=== PATIENT | male | born 1970 | race Caucasian/White ===

== ENCOUNTER 2019-01-12 06:35 | Day surgery (SDC) | payer BC ==
[2019-01-07 10:19] VITALS: BMI 40.0
[2019-01-12] MEDS ORDERED: TROPICAMIDE 1% OPHTH SOLN 15 ML BOTTLE ONE (07:02)
[2019-01-12] MEDS: CYCLOPENTOLATE 2% OPHTH SOLN 2 ML BOTTLE ONE ×3 (07:10→07:20)
[2019-01-12] MEDS: CIPROFLOXACIN 0.3% EYE DROPS 5 ML BOTTLE ONE ×3 (07:10→07:20)
[2019-01-12] MEDS: PHENYLEPHRINE 2.5% OPHTH SOLN 15 ML BOTTLE ONE ×2 (07:10→07:15)
[2019-01-12] MEDS ORDERED: LIDOCAINE 1% P/F 10 MG/ML VIAL ONE (07:12)
[2019-01-12] MEDS ORDERED: CARBACHOL 0.01% INTRA-OCULAR 1.5 ML VIAL ONE (07:13)
[2019-01-12] MEDS ORDERED: NEO/POLYMYX B SULF/DEXAMETH OPHTHALMIC 5ML BOTTLE ONE (07:13)
[2019-01-12] MEDS ORDERED: EPINEPHrine/PF 1 MG/1 ML (1:1,000) AMPULE ONE (07:14)
[2019-01-12] MEDS ORDERED: TROPICAMIDE 1% OPHTH SOLN 15 ML BOTTLE OS ONE (07:15)
[2019-01-12] MEDS ORDERED: CIPROFLOXACIN 0.3% EYE DROPS 5 ML BOTTLE OS ONE (07:20)
[2019-01-12] MEDS ORDERED: PHENYLEPHRINE 2.5% OPHTH SOLN 15 ML BOTTLE OS ONE (07:20)
[2019-01-12] MEDS ORDERED: BSS (NA/CA/MG/K) BALANCED SALT SOLUTION OPHTH SOLN 15 ML BOTTLE ONE (07:26)
[2019-01-12] MEDS ORDERED: MIDAZOLAM HCL 2 MG/2 ML SINGLE DOSE VIAL ONE ×2 (07:50→08:21)
[2019-01-12] MEDS ORDERED: SUCCINYLCHOLINE CHLORIDE 200 MG/10 ML VIAL ONE (07:51)
[2019-01-12] MEDS ORDERED: PROPOFOL 20 ML ONE (07:51)
[2019-01-12] MEDS ORDERED: TETRACAINE 0.5% OPHTH SOLN 2 ML BOTTLE ONE (08:19)
--- NOTE | 2019-01-12 09:57 | OP ---
DATE OF OPERATION: 01/12/2019 OPERATIVE PROCEDURE: Lens phacoemulsification with posterior chamber intraocular lens placement, left eye. PREOPERATIVE DIAGNOSIS: Visually significant cataract of left eye. POSTOPERATIVE DIAGNOSIS: Visually significant cataract of left eye. SURGEON: Lawrence Jensen MD ANESTHESIA: MAC. ANESTHESIOLOGIST: PROCEDURE: The patient was brought to the operating room and placed under monitored anesthesia care by Anesthesia. A drop of Tetracaine was then placed over the left eye. The patient was then prepped and draped in the usual sterile manner. A speculum was then placed over the left eye. The eye was then well irrigated with copious amounts of BSS (balanced salt solution). The operating microscope was then moved into position. A paracentesis was performed using a 15-degree blade. At this point, 0.5 mL of 1% preservative-free lidocaine was injected into the anterior chamber. Amvisc Plus was then injected into the anterior chamber. A clear corneal incision was then formed using a 2.2-mm keratome. A capsulorrhexis was then performed in a continuous circular fashion beginning with a cystotome, completed with a Utrata forceps. Hydrodissection was then performed using BSS on a cannula. The phaco probe was then introduced through the corneal wound and the cataract was removed using the phaco-chop technique. Approximately 3 seconds of absolute phaco time was used. The remaining cortex was then removed using irrigation and aspiration with an I/A probe. The capsule was then filled with regular Amvisc and the capsule was noted to be intact. A previously selected foldable posterior chamber intraocular lens was then injected into the capsule through the corneal wound using a lens injector. It was then dialed into position using a Sinskey hook. The Amvisc was then removed using irrigation and aspiration. Miostat was then injected through the paracentesis to constrict the pupil. The paracentesis and corneal wound were then hydrated and noted to be watertight. A drop of Maxitrol was then placed over the eye. The speculum was removed and clear shield was taped over the eye. The patient tolerated the procedure well and there were no surgical complications. The patient was asked to follow up in my office the next day. LAWRENCE JENSEN M.D. FABRIZIO/[id number]
[2019-01-12 12:50] VITALS: TEMP 98.6
[2019-01-12 12:53] VITALS: BP 122/76; PULSE 88
== END 2019-01-12 09:25 | disposition home or self-care (01) ==
LOC: FASU 06:35
PROVIDERS: ATTEND Ophthalmology
PROC: 08RK3JZ Replacement of Left Lens with Synthetic Substitute, Percutaneous Approach (ICD-10-PCS; principal; 2019-01-12 08:21)
DX: H26.8 Other specified cataract (principal)
CPT/HCPCS: 82962

== ENCOUNTER 2019-01-26 06:32 | Day surgery (SDC) | payer BC ==
[2019-01-24 11:33] VITALS: BMI 40.0
[2019-01-26 07:07] VITALS: TEMP 97.8
[2019-01-26] MEDS: CYCLOPENTOLATE 2% OPHTH SOLN 2 ML BOTTLE ONE ×3 (07:15→07:25)
[2019-01-26] MEDS: TROPICAMIDE 1% OPHTH SOLN 15 ML BOTTLE ONE ×3 (07:15→07:25)
[2019-01-26] MEDS: PHENYLEPHRINE 2.5% OPHTH SOLN 15 ML BOTTLE ONE ×3 (07:15→07:25)
[2019-01-26] MEDS: CIPROFLOXACIN 0.3% EYE DROPS 5 ML BOTTLE ONE ×3 (07:15→07:25)
[2019-01-26] MEDS ORDERED: LIDOCAINE 1% P/F 10 MG/ML VIAL ONE (07:16)
[2019-01-26] MEDS ORDERED: BSS (NA/CA/MG/K) BALANCED SALT SOLUTION OPHTH SOLN 15 ML BOTTLE ONE (07:16)
[2019-01-26] MEDS ORDERED: TETRACAINE 0.5% OPHTH SOLN 2 ML BOTTLE ONE (07:16)
[2019-01-26] MEDS ORDERED: NEO/POLYMYX B SULF/DEXAMETH OPHTHALMIC 5ML BOTTLE ONE (07:17)
[2019-01-26] MEDS ORDERED: CARBACHOL 0.01% INTRA-OCULAR 1.5 ML VIAL ONE (07:17)
[2019-01-26] MEDS ORDERED: EPINEPHrine 1:1,000 1 MG/1 ML - 30ML VIAL (INJECTION) ONE (07:19)
[2019-01-26] MEDS ORDERED: MIDAZOLAM HCL 2 MG/2 ML SINGLE DOSE VIAL ONE ×2 (07:38→08:18)
--- NOTE | 2019-01-26 09:01 | OP ---
DATE OF OPERATION: 01/26/2019 OPERATIVE PROCEDURE: Lens phacoemulsification with posterior chamber intraocular lens placement right eye. PREOPERATIVE DIAGNOSIS: Visually significant cataract of right eye. POSTOPERATIVE DIAGNOSIS: Visually significant cataract of right eye. SURGEON: Lawrence Jensen M.D. ANESTHESIA: MAC PROCEDURE: The patient was brought to the operating room and placed under monitored anesthesia care by Anesthesia. A drop of tetracaine was then placed over the right eye. The patient was then prepped and draped in the usual sterile manner. A speculum was then placed over the right eye. The eye was then well irrigated with copious amounts of BSS (balanced salt solution). The operating microscope was then moved into position. A paracentesis was performed using a 15 degree blade. At this point 0.5 mL of 1% preservative-free lidocaine was injected into the anterior chamber. Amvisc Plus was then injected into the anterior chamber. A clear corneal incision was then formed using a 2.2 mm keratome. A capsulorrhexis was then performed in a continuous circular fashion beginning with a cystotome and completed with Utrata forceps. Hydrodissection was then performed using BSS on a cannula. The phaco probe was then introduced through the corneal wound and the cataract was removed using the phaco chop technique. Approximately 3 seconds of absolute phaco time was used. The remaining cortex was then removed using irrigation and aspiration with an I/A probe. The capsule was then filled with regular Amvisc and the capsule was noted to be intact. A previously selected foldable posterior chamber intraocular lens was then injected into the capsule through the corneal wound using a lens injector. It was then dialed into position using a Sinskey hook. The Amvisc was then removed using irrigation and aspiration. Miostat was then injected through the paracentesis to constrict the pupil. The paracentesis and corneal wound were then hydrated and noted to be watertight. A drop of Maxitrol was then placed over the eye. The speculum was removed and clear shield was taped over the eye. The patient tolerated the procedure well and there were no surgical complications. The patient was asked to follow up in my office the next day. LAWRENCE JENSEN M.D. FABRIZIO/[id number]
[2019-01-26 09:16] VITALS: BP 122/72; PULSE 86
== END 2019-01-26 09:20 | disposition home or self-care (01) ==
LOC: FASU 06:32
PROVIDERS: ATTEND Ophthalmology
PROC: 08RJ3JZ Replacement of Right Lens with Synthetic Substitute, Percutaneous Approach (ICD-10-PCS; principal; 2019-01-26 08:00)
DX: H26.8 Other specified cataract (principal)
CPT/HCPCS: 82962

== ENCOUNTER 2019-09-05 10:40 | Inpatient (IN) | payer BC ==
--- NOTE | 2019-09-05 10:43 | PDOC ---
Attending Attestation - Resident Resident Name: Kacy Todd - ED Attending Attestation I have performed the following: I have examined & evaluated the patient, The case was reviewed & discussed with the resident, I agree w/resident's findings & plan, Exceptions are as noted - HPI HPI: 09/05/19 12:05 48yo male with hx of etoh abuse - drinks 1 bottle vodka daily. Also with hx of htn, hld, dm on metformin/losartan, norvasc with abd swelling, LE swelling x 3 months. States he has never stopped drinking or gone through detox. States his made him come to the ER today for eval. States he has been taking his meds as prescribed. Pt states he feels sob when sitting up recently. Denies cp. Pt follows with Dr. Ledezma. states he has been taking baby asa daily and has been taking motrin for the last week for back pain. States he pulled his back. Pt walked in with a walker. Pt with LE swelling and anasarca. - Physicial Exam PE: 09/05/19 12:07 Gen: aaox3, uncomfortable, anasarca, mild tachypnea heent: pale conjunctiva, no icterus, dry cracked tongue and tachy mm, dried blood L nare and dried blood to L earlobe - from CPAP rubbing neck: supple heart: +s1s2 tachy lungs: cta b/l, mild tachypnea abd: distended, ascites, fluid wave, small umbilical hernia with ascites fluid ext: 4+ pitting edema to LE b/l - Critical Care Time Total Critical Care Time: 45 Critical Care Statement: The care of this patient involved high complexity decision making to prevent further life threatening deterioration of the patient 's condition and/or to evaluate & treat vital organ system(s) failure or risk of failure. - Medical Decision Making 09/05/19 12:02 a/p: 48yo male with abd distension/LE swelling x 3 months -states melena x 2 weeks -has been taking ibuprofen and asa for the last week for back pain -no vomiting blood -bleeding L nare, does use cpap -denies bleeding from gums -hx of etoh abuse -pt will need admission, labs, coags, bnp, trop, ua -concern for liver disease causing ascites and anasarca -PMD dr. Ledezma who admits to Dr. Johnson 09/05/19 12:03 pt with renal failure - will place agudelo case discussed with Dr. Rutledge who will see pt in consult, requests push of bicarb 09/05/19 12:04 pt with hx of melena and ascites - blood cultures added, no abd ttp, but will start rocephin for SBP poss given gi bleed and ascites case discussed with Dr. Escobar from ICU who will see pt in consult and accepts pt to icu pt h/h 7 - will need transfusion pt with sodium 123 bicarb 11 09/05/19 12:05 cxr clear for pna 09/05/19 12:[address] Boateng 09/05/19 12:15 given poss gi bleed and liver failure will order protonix gtt and octreotide gtt 09/05/19 12:[address] Lipscomb 09/05/19 12:[address] Boateng who accepts pt in transfer to the ICU at [facility] pt updated 09/05/19 12:52 case discussed with GI - Dr. Kumar who will see pt in consult agrees with rocephin use 09/05/19 14:20 pt has signed blood consent agudelo in place scant amount of urine 1pRBC ordered for transfusion pt pending transfer to ICU at [facility] [place] [place] 09/05/19 14:53 case discussed with the ICU team again. pt accepted to bed 13 in ICU at [facility] 09/05/19 15:15 hepatomegaly on ultrasound, large amount of ascites Discharge - Discharge Information Problems reviewed: Yes Clinical Impression/Diagnosis: Renal failure, Anasarca, Symptomatic anemia, Hyponatremia Condition: Critical - Admission Yes - Follow up/Referral - Patient Discharge Instructions - Post Discharge Activity Heart Score/ECG Review - ECG Intrepretation Comment:: 09/05/19 11:13 sinus at 98, nl axis, nl interval, low voltage ekg, no acute st/t wave findings
--- NOTE | 2019-09-05 10:43 | PDOC ---
History of Present Illness - General Chief Complaint: Edema Stated Complaint: SWOLLEN LEGS UNABVLE TO WALK Time Seen by Provider: 09/05/19 10:43 - History of Present Illness Initial Comments: 09/05/19 10:46 48 year old man with a history of alcohol abuse (1/2 bottle of vodka daily), DM , HLD and HTN who presents with 3 months of shortness of breath, leg edema and abdominal distention and hardening. The patient reports that his sob is worse with movement. He reports that his and brother encouraged him to come to the ER today. The patient also reports that he has had black stools for 2 weeks. ROS GENERAL/CONSTITUTIONAL: No fever or chills. No weakness. CARDIOVASCULAR: No chest pain + shortness of breath RESPIRATORY: No cough, wheezing, or hemoptysis. GASTROINTESTINAL: No nausea, vomiting, diarrhea or constipation. GENITOURINARY: No dysuria, frequency, or change in urination. MUSCULOSKELETAL: No joint or muscle swelling or pain. No neck or back pain. SKIN: No rash NEUROLOGIC: No headache, vertigo, loss of consciousness, or change in strength/ sensation. PE GENERAL: Awake, alert, and fully oriented, in no acute distress HEAD: No signs of trauma, normocephalic, atraumatic EYES: EOMI, sclera anicteric, conjunctiva clear ENT: oropharynx clear without exudates. Moist mucosa NECK: Normal ROM, supple LUNGS: No distress, speaks full sentences, clear to auscultation at upper lobes , expiratory wheeze at bases HEART: Regular rate and rhythm, normal S1 and S2, + harsh systolic murmur, no rubs or gallops, peripheral pulses normal and equal bilaterally. ABDOMEN: 1+ pitting edema at lower abdomen, distended and hardened abdomen EXTREMITIES : 3+ pitting edema in bilateral lower extremities NEUROLOGICAL: Cranial nerves II through XII grossly intact. Normal speech, , no focal sensorimotor deficits SKIN: Warm, Dry, normal turgor, no rashes or lesions noted MDM DDX including but not limited to: live cirrhosis ascites anasarca chf axacernation ED Course: labs significant for h/h: 05/16 ARF hyponatremia hypolabumin See attending discussion with ICU and Renal plan for transfer to [email or web address] ICU Kacy Todd, PGY2 Emergency Medicine 09/05/19 12:02 09/05/19 12:03 Past History - Past Medical History Allergies/Adverse Reactions: Allergies Allergy/AdvReac Type Severity Reaction Status Date / Time No Known Allergies Allergy Verified 09/05/19 10:55 Home Medications: Ambulatory Orders Aspirin [ASA -] 81 mg PO DAILY 01/07/19 Dulaglutide [Trulicity] 1 dose SQ WEEKLY 09/05/19 Anemia: No Asthma: No Cancer: No Cardiac Disorders: No CVA: No COPD: No CHF: No Dementia: No Diabetes: Yes GI Disorders: No Disorders: No HTN: Yes Hypercholesterolemia: Yes Liver Disease: No Seizures: No Thyroid Disease: No - Surgical History Abdominal Surgery: No Appendectomy: No Cardiac Surgery: No Cholecystectomy: No Lung Surgery: No Neurologic Surgery: No Orthopedic Surgery: No - Psycho Social/Smoking Cessation Hx Smoking History: Never smoked Have you smoked in the past 12 months: No Hx Alcohol Use: Yes (wine occ) Drug/Substance Use Hx: No Substance Use Type: Alcohol ED Treatment Course - LABORATORY CBC & Chemistry Diagram: 09/05/19 11:06 09/05/19 11:06 Discharge - Discharge Information Clinical Impression/Diagnosis: Renal failure, Anasarca, Symptomatic anemia, Hyponatremia Condition: Critical - Follow up/Referral - Patient Discharge Instructions - Post Discharge Activity Critical Care Total Critical Care Time (in minutes): 90 Critical Care Statement: The care of this patient involved high complexity decision making to prevent further life threatening deterioration of the patient 's condition and/or to evaluate & treat vital organ system(s) failure or risk of failure.
[2019-09-05 11:42] LABS: ALBUMIN 2.5 g/dl (3.4-5.0); BILIRUBIN,TOTAL 1.4 mg/dl (0.2-1); CREATININE 3.9 mg/dl (0.55-1.3); POTASSIUM 4.9 mmol/L (3.5-5.1); TOT PROT 6.7 g/dl (6.4-8.2)
[2019-09-05] MEDS ORDERED: OCTREOTIDE ACETATE 500 MCG/1 ML - 1 ML VIAL IVPUSH ONE (11:48)
[2019-09-05] MEDS ORDERED: PANTOPRAZOLE SODIUM 40 MG VIAL IVPUSH ONE (11:48)
[2019-09-05] MEDS ORDERED: OCTREOTIDE ACETATE 50 MCG/1 ML - 1 ML VIAL IVPUSH ONE (11:50)
[2019-09-05 11:51] LABS: BASO % 0.4 % (0-2.0); EOS % 1.9 % (0-4.5); LYMPH % 5.1 % (8-40); MCHC 31.7 g/dl (32.0-35.9); MEAN CELL VOLUME 85.1 fl (80-96); MEAN PLT VOLUME 8.3 fl (7.5-11.1); NEUT % 81.6 % (42.8-82.8); PLATELET COUNT 223 K/MM3 (134-434); RBC 2.59 M/mm3 (4.00-5.60); RDW 19.3 % (11.9-15.9); WHITE BLOOD COUNT 10.9 K/mm3 (4.0-10.8)
[2019-09-05 11:52] LABS: ADD RBC MORPHOLOGY YES
[2019-09-05 11:57] LABS: INR 1.33 (0.82-1.09); PROTHROMBIN TIME (PATIENT) 14.8 SEC (10.2-13.0)
[2019-09-05] MEDS ORDERED: SODIUM BICARBONATE 8.4% 50 MEQ/50 ML DISP.SYRIN IVPUSH ONE ×2 (12:01→18:59)
[2019-09-05] MEDS ORDERED: PANTOPRAZOLE SODIUM 40 MG VIAL ONE (12:11)
[2019-09-05] MEDS ORDERED: cefTRIAXone SODIUM 1 GM VIAL ONE (12:11)
[2019-09-05] MEDS ORDERED: SODIUM BICARBONATE 8.4% 50 MEQ/50 ML VIAL ONE ×2 (12:11→16:57)
[2019-09-05] MEDS: SODIUM CHLORIDE 1,000 ML IV SCH (12:15)
[2019-09-05] MEDS ORDERED: SODIUM CHLORIDE IVPB ONE (12:45)
[2019-09-05] MEDS ORDERED: OCTREOTIDE ACETATE IVPB ONE (12:45)
[2019-09-05] MEDS: PANTOPRAZOLE SODIUM 80 MG in SODIUM CHLORIDE 100 ML IVPB SCH ×2 (12:50→22:12)
[2019-09-05 13:06] LABS: ANISOCYTOSIS 1+; TARGET CELLS 1+
[2019-09-05 13:14] LABS: VENOUS PC02 24.3 mmHg (38-52); VENOUS PH 7.32 (7.31-7.41); VENOUS PO2 52.4 mmHg (28-48)
[2019-09-05] MEDS ORDERED: OCTREOTIDE ACETATE 100 MCG/1 ML IVPUSH ONE (13:15)
[2019-09-05 14:22] LABS: EPITHELIAL CELLS FEW /hpf
[2019-09-05 14:23] LABS: URINE HYALINE CAST 0-2 /lpf
--- NOTE | 2019-09-05 15:45 | HP ---
Admitting History and Physical - Primary Care Physician PCP: Gregory Torres - Admission Chief Complaint: came in for leg swelling History of Present Illness: 48yo male with hx of etoh abuse - drinks 1 bottle vodka daily. Also with hx of htn, hld, dm on metformin/losartan, norvasc with abd swelling, LE swelling x 3 months. States he has never stopped drinking or gone through detox. States his made him come to the ER today for eval. States he has been taking his meds as prescribed. Pt states he feels sob when sitting up recently. Denies cp. Pt follows with Dr. Torres. states he has been taking baby asa daily and has been taking motrin for the last week for back pain. States he pulled his back. Pt walked in with a walker. Pt with LE swelling and anasarca. .patient has complaints of melena in the last two weeks as well at home patient has been lying on his side as he having difficulty breathing in er labs wbc 10, hgb 7, bicarbonate 11, creatinine 3.9 protonix iv octreotide drip 2 amp of bicarbonate History Source: Patient - Past Medical History Cardiovascular: Yes: HTN, Hyperlipdemia Endocrine: Yes: Diabetes Mellitus - Smoking History Smoking history: Never smoked Have you smoked in the past 12 months: No - Alcohol/Substance Use Hx Alcohol Use: Yes (wine occ) Number of Drinks Daily: 1 (1/2bottle vodka daily) Home Medications - Allergies Allergies/Adverse Reactions: Allergies Allergy/AdvReac Type Severity Reaction Status Date / Time No Known Allergies Allergy Verified 09/05/19 10:55 - Home Medications Home Medications: Ambulatory Orders Aspirin [ASA -] 81 mg PO DAILY 01/07/19 Dulaglutide [Trulicity] 1 dose SQ WEEKLY 09/05/19 Review of Systems - Review of Systems Respiratory: reports: Orthopnea, SOB Gastrointestinal: reports: Abdominal Pain, Bloating Musculoskeletal: reports: Other (leg swelling) Physical Examination Vital Signs: Vital Signs Temperature 98 F 09/05/19 14:52 Pulse Rate 97 H 09/05/19 14:52 Respiratory Rate 20 09/05/19 14:52 Blood Pressure 101/50 L 09/05/19 14:52 O2 Sat by Pulse Oximetry (%) 100 09/05/19 14:52 Constitutional: Yes: Mild Distress, Pallor HENT: Yes: Other (dried blood in the ears) Cardiovascular: Yes: Regular Rate and Rhythm, S1, S2 Respiratory: Yes: Diminished, SOB Gastrointestinal: Yes: Ascites, Distention, Hernia (umbilcial), Other (caput meduse fluid wave) Edema: Yes Neurological: Yes: Alert, Other (decrased sensation in feet) Psychiatric: Yes: Alert, Oriented Labs: CBC, BMP 09/05/19 11:06 09/05/19 11:06 Problem List - Problems (1) Anasarca Assessment/Plan: secondary to cirrhosis and renal failure abdominal sono shows large volume ascites and hepatomegaly and fatty liver venous lower extremity doppler shows no dvt check coags paracentesis with albumin now monitor respiratory status secondary to genaralized volume overload Code(s): R60.1 - GENERALIZED EDEMA (2) Hyponatremia Assessment/Plan: repeat labs maybe secondary to hepatorenal syndrome Code(s): E87.1 - HYPO-OSMOLALITY AND HYPONATREMIA (3) Renal failure Assessment/Plan: repeat cmp now after the bicarb amps check ABG agudelo and monitor urine output lasix 80mg iv now monitor in icu- respiratory status may need HD check lactic acid as patient was on metformin kidney noted on the abdominal sonogram Code(s): N19 - UNSPECIFIED KIDNEY FAILURE (4) Symptomatic anemia Assessment/Plan: prbc one unit 1 will defer later after the paracentesis gi eval noted protonix and octreotide drip serial cbc iron panel Code(s): D64.9 - ANEMIA, UNSPECIFIED (5) Coagulopathy Assessment/Plan: ffp and vitmain K as needed monitor coags Code(s): D68.9 - COAGULATION DEFECT, UNSPECIFIED Assessment/Plan icu monitoring paracentesis with albumin to help with respiratory distress ABG lactic acid repeat cbc ,cmp,coags
[2019-09-05] MEDS ORDERED: FUROSEMIDE 40 MG/4 ML INJECTABLE VIAL IVPUSH ONE ×2 (16:32→22:12)
--- NOTE | 2019-09-05 16:47 | CON.GI ---
Consult Consult Specialty:: GI Referred by:: ICU Reason for Consultation:: ascites, GI bleed - History of Present Illness Chief Complaint: SOB, swelling History of Present Illness: 48M with h/o DM, HTN, HL, significant ETOH 1 bottle vodka daily (last yesterday ) presenting for abdominal and leg swelling for few months. Also noted to be having black stool for the last 2 weeks [employer]. Using motrin daily for back pain as well for last week. +SOB when upright. Went to ED at [facility] for eval. Patient says his last bm was 3 days ago, prior to that was having loose jet black bm a few times a day. No abdominal pain just tight. Scant hematochezia as well, intermittent. no hematemesis. Noted to be anasarcic with tense ascites on exam. Although not documented, per discussion w ED MD, no almost no stool in vault on RAHAT and guaiac to lab was negative. US with large ascites, small gallstones w mild wlal thickening ? related to ascites, limited eval of PV Labs with significant derangements: hgb 7 Na 123 HCO3 11 BUN 65 Cr 3.9 Albumin 2.5 TB 1.4 AST 43 ALT 19 Was started on PPI and octreotide gtt, ceftriaxone given, transferred to [facility] for further evaluation. - History Source History Provided By: Patient Limitations to Obtaining History: No Limitations - Past Medical History Cardio/Vascular: Yes: HTN, Hyperlipdemia Endocrine: Yes: Diabetes Mellitus - Alcohol/Substance Use Hx Alcohol Use: Yes (wine occ) Number of Drinks Daily: 1 (1/2bottle vodka daily) - Smoking History Smoking history: Never smoked Have you smoked in the past 12 months: No Home Medications - Allergies Allergies/Adverse Reactions: Allergies Allergy/AdvReac Type Severity Reaction Status Date / Time No Known Allergies Allergy Verified 09/05/19 10:55 - Home Medications Home Medications: Ambulatory Orders Aspirin [ASA -] 81 mg PO DAILY 01/07/19 Dulaglutide [Trulicity] 1 dose SQ WEEKLY 09/05/19 Family Medical History Family History: Unremarkable Review of Systems - Review of Systems Constitutional: reports: No Symptoms Eyes: reports: No Symptoms Cardiovascular: reports: No Symptoms Respiratory: reports: SOB Gastrointestinal: reports: Bloating, Melena, Rectal Bleeding Genitourinary: reports: No Symptoms Musculoskeletal: reports: No Symptoms Neurological: reports: No Symptoms Endocrine: reports: No Symptoms Hematology/Lymphatic: reports: No Symptoms Psychiatric: reports: No Symptoms Physical Exam-GI Vital Signs: Vital Signs Temperature 98 F 09/05/19 14:52 Pulse Rate 97 H 09/05/19 14:52 Respiratory Rate 20 09/05/19 14:52 Blood Pressure 101/50 L 09/05/19 14:52 O2 Sat by Pulse Oximetry (%) 100 09/05/19 14:52 Constitutional: Yes: Well Nourished, No Distress, Other (tachypneic) Eyes: Yes: Conjunctiva Clear Cardiovascular: Yes: Regular Rate and Rhythm Respiratory: Yes: CTA Bilaterally Gastrointestinal Inspection: Yes: Ascites ...Palpate: Yes: Other (spider angiomata; tense ascites) ...Percussion: Yes: Dullness, Fluid Wave Edema: Yes Edema: LLE: 4+, RLE: 4+ Neurological: Yes: Alert, Oriented, Tremors Psychiatric: Yes: Alert, Oriented Labs: CBC, BMP 09/05/19 11:06 09/05/19 11:06 INR, PTT INR 1.33 (0.82-1.09) H 09/05/19 11:06 Hepatic Panel Total Bilirubin 1.4 mg/dl (0.2-1) H 09/05/19 11:06 AST 43 U/L (15-37) H 09/05/19 11:06 ALT 19 U/L (13-61) 09/05/19 11:06 Alkaline Phosphatase 167 U/L (45-117) H 09/05/19 11:06 Albumin 2.5 g/dl (3.4-5.0) L 09/05/19 11:06 Imaging - Results Ultrasound: Report Reviewed Assessment/Plan 48M with significant ETOH disease presenting for anasarca. GI bleeding - hx of melena for two weeks, +NSAIDs but guaiac negative. No bm x3d. Doesn't seem to be actively bleeding. Unclear if cirrhotic. Continue PPI/octreotide drips Continue ceftriaxone for now Recheck H/H, transfuse for hgb <7 Patient with significant volume overload at this time causing tachypnea. Needs diagnostic/therapeutic paracentesis for comfort - please send cell count and cx to rule out SBP. Should have albumin replacement with tap. Check urine electrolytes Would see about repeating US after tap to assess for splenomegaly, other signs of portal HTN Monitor for withdrawal - patient is tremulous, last drink yesterday Will follow
--- NOTE | 2019-09-05 16:48 | CONSULT ---
Consult Consult Specialty:: Nephrology Reason for Consultation:: justine - History of Present Illness Chief Complaint: abdominal distention and shortness of breath History of Present Illness: Pt is a 48 year old gentleman who presents to the ER with abdominal distension and shortness of breath. He has history of etoh abuse, DM, hld and HTN. He says that he has been drinking for many years. He also complains of worsening lower ext edema. He has had the symptoms for the last 4 months and they have progressively been getting worse. He did have black stools. He complains of discomfort from the distention. He denies chest pain or palpitations. He denies history of CKD. He has been taking nsaids. He is not aware of having liver disease. - History Source History Provided By: Patient, Medical Record - Past Medical History Cardio/Vascular: Yes: HTN, Hyperlipdemia Endocrine: Yes: Diabetes Mellitus - Alcohol/Substance Use Hx Alcohol Use: Yes (wine occ) Number of Drinks Daily: 1 (1/2bottle vodka daily) - Smoking History Smoking history: Never smoked Have you smoked in the past 12 months: No Home Medications - Allergies Allergies/Adverse Reactions: Allergies Allergy/AdvReac Type Severity Reaction Status Date / Time No Known Allergies Allergy Verified 09/05/19 10:55 - Home Medications Home Medications: Ambulatory Orders Aspirin [ASA -] 81 mg PO DAILY 01/07/19 Dulaglutide [Trulicity] 1 dose SQ WEEKLY 09/05/19 Family Medical History Family History: Denies Review of Systems - Review of Systems Constitutional: reports: Malaise. denies: Chills Eyes: reports: No Symptoms HENT: reports: No Symptoms Neck: reports: No Symptoms Cardiovascular: reports: Edema, Shortness of Breath Respiratory: reports: SOB, SOB on Exertion Gastrointestinal: reports: Other (distension) Genitourinary: reports: No Symptoms Musculoskeletal: reports: No Symptoms Integumentary: reports: No Symptoms Neurological: reports: No Symptoms Endocrine: reports: No Symptoms Hematology/Lymphatic: reports: No Symptoms Psychiatric: reports: No Symptoms Physical Exam Vital Signs: Vital Signs Temperature 98 F 09/05/19 14:52 Pulse Rate 97 H 09/05/19 14:52 Respiratory Rate 20 09/05/19 14:52 Blood Pressure 101/50 L 09/05/19 14:52 O2 Sat by Pulse Oximetry (%) 100 09/05/19 14:52 Constitutional: Yes: Mild Distress Eyes: Yes: Conjunctiva Clear Cardiovascular: Yes: S1, S2 Respiratory: Yes: On Nasal O2 Gastrointestinal: Yes: Ascites, Distention Renal/: Yes: Cortes Present Musculoskeletal: Yes: WNL Edema: Yes Edema: LLE: 3+, RLE: 3+ Neurological: Yes: Oriented Psychiatric: Yes: Oriented Labs: CBC, BMP 09/05/19 11:06 09/05/19 11:06 Laboratory Tests 09/05/19 09/05/19 09/05/19 11:06 11:06 11:06 Hgb 7.0 L Sodium 123 L Potassium 4.9 Chloride 94 L Carbon Dioxide 11 L Anion Gap 18 H BUN 65.0 H Creatinine 3.9 H B-Natriuretic Peptide 707.7 H Urine Protein Urine Blood 09/05/19 13:25 Hgb Sodium Potassium Chloride Carbon Dioxide Anion Gap BUN Creatinine B-Natriuretic Peptide Urine Protein 2+ H Urine Blood Trace-intact Imaging - Results Chest X-ray: Report Reviewed Ultrasound: Report Reviewed Problem List - Problems (1) Ascites Code(s): R18.8 - OTHER ASCITES (2) Anasarca Code(s): R60.1 - GENERALIZED EDEMA (3) Coagulopathy Code(s): D68.9 - COAGULATION DEFECT, UNSPECIFIED (4) Hyponatremia Code(s): E87.1 - HYPO-OSMOLALITY AND HYPONATREMIA (5) Renal failure Code(s): N19 - UNSPECIFIED KIDNEY FAILURE (6) Symptomatic anemia Code(s): D64.9 - ANEMIA, UNSPECIFIED Assessment/Plan Current Medications Generic Name Dose Route Start Last Admin Trade Name Zana PRN Reason Stop Dose Admin Chlorhexidine Gluconate 1 applic 09/05/19 22:00 Hibiclens For Decolonization - TP HS YUE Sodium Chloride 1,000 mls @ 0 mls/hr 09/05/19 12:00 09/05/19 12:15 Normal Saline - IV 1,000 mls/hr ASDIR YUE Administration Wide Open Pantoprazole Sodium 80 mg/ 100 mls @ 10 mls/hr 09/05/19 12:15 09/05/19 12:50 Sodium Chloride IVPB 10 mls/hr Q10H YUE Administration 8 MG/HR Mupirocin 1 applic 09/05/19 22:00 Bactroban Ointment (For Decolonization) - NS 09/10/19 21:59 BID YUE Impression 1. JUSTINE 2. hyponatremia hypervolemic 3. etoh abuse 4. fluid overload 5. metabolic overload 6. DM 7. htn 8. hld 9. anemia Plan - will give lasix - GI eval for paracentesis - agree with amp of bicarb - repeat labs - check abg - check lactic acid - check urine sodium and box stamper - ICU monitoring - follow up repeat labs stat - pt getting paracentesis, discussed with ICU - hyponatremia workup ordered
[2019-09-05] MEDS ORDERED: SODIUM BICARBONATE 8.4% 50 MEQ/50 ML VIAL IVPUSH ONE ×3 (16:55→21:35)
[2019-09-05 17:10] LABS: ARTERIAL BLD GAS O2 SATURATION 97.7 % (95-98); ARTERIAL BLOOD GAS BASE EXCESS -14.7 meq/l (-2-2); ARTERIAL BLOOD GAS PCO2 20.1 mmHg (35-45); ARTERIAL BLOOD GAS PO2 107 mmHg (80-100); ARTERIAL BLOOD GAS pH 7.32 (7.35-7.45)
[2019-09-05 17:13] LABS: ALLENS TEST POSITIVE
[2019-09-05 17:41] LABS: BASO % 0.3 % (0-2.0); EOS % 0.2 % (0-4.5); HEMATOCRIT 20.4 % (35.4-49); LYMPH % 2.9 % (8-40); MCH 26.5 pg (25.7-33.7); MCHC 31.9 g/dl (32.0-35.9); MEAN CELL VOLUME 83.1 fl (80-96); MEAN PLT VOLUME 7.8 fl (7.5-11.1); MONO % 8.8 % (3.8-10.2); NEUT % 87.8 % (42.8-82.8); PLATELET COUNT 179 K/MM3 (134-434); RBC 2.45 M/mm3 (4.00-5.60); WHITE BLOOD COUNT 9.6 K/mm3 (4.0-10.0)
[2019-09-05 17:50] LABS: HEMOGLOBIN 6.5 GM/dL (11.7-16.9)
--- NOTE | 2019-09-05 17:52 | PN ---
Physical Exam: SUBJECTIVE: Patient seen and examined by the bedside, A)x3, tachypnic but otherwise doing well. OBJECTIVE: Vital Signs Period Temp Pulse Resp BP Sys/Foy Pulse Ox Last 24 Hr 97.9 F-98 F 97-103 20-28 101-109/50-74 100-100 GENERAL: AOx3, tachypnic HEAD: Normal with no signs of trauma. EYES: PERRL, extraocular movements intact, sclera anicteric, conjunctiva clear. No ptosis. ENT: Dried blood in ears, no drainage, nares patent and moist NECK: Trachea midline LUNGS: Decreased breath sounds B/L HEART: RRR, no murmurs ABDOMEN: Soft, nontender, distended, umbilical hernia presentno hepatosplenomegaly EXTREMITIES: 2+ pitting edema NEUROLOGICAL: Motor 5/5, sensations intact PSYCH: Normal mood, normal affect. SKIN: Warm, dry, normal turgor, no rashes Laboratory Results - last 24 hr 09/05/19 09/05/19 09/05/19 11:06 11:06 11:06 WBC 10.9 H RBC 2.59 L Hgb 7.0 L Hct 22.0 L D MCV 85.1 MCH 27.0 D MCHC 31.7 L RDW 19.3 H D Plt Count 223 MPV 8.3 D Absolute Neuts (auto) 8.9 Neutrophils % 81.6 D Lymphocytes % 5.1 L D Monocytes % 11.0 H Eosinophils % 1.9 Basophils % 0.4 Hypochromia 1+ Anisocytosis 1+ Target Cells 1+ PT with INR INR PTT (Actin FS) 29.3 Anticoagulation Therapy Puncture Site ABG pH ABG pCO2 at Pt Temp ABG pO2 at Pt Temp ABG HCO3 ABG O2 Sat (Measured) ABG O2 Content ABG Base Excess Puma Test VBG pH POC VBG pCO2 POC VBG pO2 VBG HCO3 VBG O2 Sat (Anthony) VBG Base Excess O2 Delivery Device Oxygen Flow Rate Vent Mode Vent Rate Mechanical Rate Pressure Support Vent Sodium 123 L Potassium 4.9 Chloride 94 L Carbon Dioxide 11 L Anion Gap 18 H BUN 65.0 H Creatinine 3.9 H Est GFR (CKD-EPI)AfAm 19.67 Est GFR (CKD-EPI)NonAf 16.98 Random Glucose 110 H Calcium 8.0 L Total Bilirubin 1.4 H AST 43 H ALT 19 Alkaline Phosphatase 167 H Creatine Kinase Troponin I B-Natriuretic Peptide Total Protein 6.7 Albumin 2.5 L Urine Color Urine Appearance Urine pH Urine Protein Urine Glucose (UA) Urine Ketones Urine Blood Urine Nitrite Urine Bilirubin Urine Urobilinogen Ur Leukocyte Esterase Urine RBC Urine WBC Ur Transition Epith Cell Urine Bacteria Hyaline Casts Stool Occult Blood Blood Type Antibody Screen Crossmatch 09/05/19 09/05/19 09/05/19 11:06 11:06 11:06 WBC RBC Hgb Hct MCV MCH MCHC RDW Plt Count MPV Absolute Neuts (auto) Neutrophils % Lymphocytes % Monocytes % Eosinophils % Basophils % Hypochromia Anisocytosis Target Cells PT with INR 14.8 H INR 1.33 H PTT (Actin FS) Anticoagulation Therapy Puncture Site ABG pH ABG pCO2 at Pt Temp ABG pO2 at Pt Temp ABG HCO3 ABG O2 Sat (Measured) ABG O2 Content ABG Base Excess Puma Test VBG pH POC VBG pCO2 POC VBG pO2 VBG HCO3 VBG O2 Sat (Anthony) VBG Base Excess O2 Delivery Device Oxygen Flow Rate Vent Mode Vent Rate Mechanical Rate Pressure Support Vent Sodium Potassium Chloride Carbon Dioxide Anion Gap BUN Creatinine Est GFR (CKD-EPI)AfAm Est GFR (CKD-EPI)NonAf Random Glucose Calcium Total Bilirubin AST ALT Alkaline Phosphatase Creatine Kinase Troponin I 0.04 B-Natriuretic Peptide 707.7 H Total Protein Albumin Urine Color Urine Appearance Urine pH Urine Protein Urine Glucose (UA) Urine Ketones Urine Blood Urine Nitrite Urine Bilirubin Urine Urobilinogen Ur Leukocyte Esterase Urine RBC Urine WBC Ur Transition Epith Cell Urine Bacteria Hyaline Casts Stool Occult Blood Blood Type Antibody Screen Crossmatch 09/05/19 09/05/19 09/05/19 11:06 12:05 12:06 WBC RBC Hgb Hct MCV MCH MCHC RDW Plt Count MPV Absolute Neuts (auto) Neutrophils % Lymphocytes % Monocytes % Eosinophils % Basophils % Hypochromia Anisocytosis Target Cells PT with INR INR PTT (Actin FS) Anticoagulation Therapy Puncture Site ABG pH ABG pCO2 at Pt Temp ABG pO2 at Pt Temp ABG HCO3 ABG O2 Sat (Measured) ABG O2 Content ABG Base Excess Puma Test VBG pH POC VBG pCO2 POC VBG pO2 VBG HCO3 VBG O2 Sat (Anthony) VBG Base Excess O2 Delivery Device Oxygen Flow Rate Vent Mode Vent Rate Mechanical Rate Pressure Support Vent Sodium Potassium Chloride Carbon Dioxide Anion Gap BUN Creatinine Est GFR (CKD-EPI)AfAm Est GFR (CKD-EPI)NonAf Random Glucose Calcium Total Bilirubin AST ALT Alkaline Phosphatase Creatine Kinase 124 Troponin I B-Natriuretic Peptide Total Protein Albumin Urine Color Urine Appearance Urine pH Urine Protein Urine Glucose (UA) Urine Ketones Urine Blood Urine Nitrite Urine Bilirubin Urine Urobilinogen Ur Leukocyte Esterase Urine RBC Urine WBC Ur Transition Epith Cell Urine Bacteria Hyaline Casts Stool Occult Blood Negative Blood Type A POSITIVE Antibody Screen Negative Crossmatch See Detail 09/05/19 09/05/19 09/05/19 12:25 12:25 13:25 WBC RBC Hgb Hct MCV MCH MCHC RDW Plt Count MPV Absolute Neuts (auto) Neutrophils % Lymphocytes % Monocytes % Eosinophils % Basophils % Hypochromia Anisocytosis Target Cells PT with INR INR PTT (Actin FS) Anticoagulation Therapy Puncture Site ABG pH ABG pCO2 at Pt Temp ABG pO2 at Pt Temp ABG HCO3 ABG O2 Sat (Measured) ABG O2 Content ABG Base Excess Puma Test VBG pH 7.32 POC VBG pCO2 24.3 L POC VBG pO2 52.4 H VBG HCO3 12.2 L VBG O2 Sat (Anthony) 78.6 VBG Base Excess -12.8 L O2 Delivery Device Oxygen Flow Rate Vent Mode Vent Rate Mechanical Rate Pressure Support Vent Sodium Potassium Chloride Carbon Dioxide Anion Gap BUN Creatinine Est GFR (CKD-EPI)AfAm Est GFR (CKD-EPI)NonAf Random Glucose Calcium Total Bilirubin AST ALT Alkaline Phosphatase Creatine Kinase Troponin I B-Natriuretic Peptide Total Protein Albumin Urine Color Yellow Urine Appearance Slightly Urine pH 5.0 Urine Protein 2+ H Urine Glucose (UA) Negative Urine Ketones 1+ H Urine Blood Trace-intact Urine Nitrite Negative Urine Bilirubin 2+ H Urine Urobilinogen 1.0 Ur Leukocyte Esterase Negative Urine RBC 2-5 Urine WBC 0-2 Ur Transition Epith Cell Few Urine Bacteria Few Hyaline Casts 0-2 Stool Occult Blood Blood Type A POSITIVE Antibody Screen Crossmatch 09/05/19 16:43 WBC RBC Hgb Hct MCV MCH MCHC RDW Plt Count MPV Absolute Neuts (auto) Neutrophils % Lymphocytes % Monocytes % Eosinophils % Basophils % Hypochromia Anisocytosis Target Cells PT with INR INR PTT (Actin FS) Anticoagulation Therapy No Result Required. Puncture Site Right radial ABG pH 7.32 L ABG pCO2 at Pt Temp 20.1 L ABG pO2 at Pt Temp 107 H ABG HCO3 10.2 L ABG O2 Sat (Measured) 97.7 ABG O2 Content 7.6 ABG Base Excess -14.7 L Pmua Test Positive VBG pH POC VBG pCO2 POC VBG pO2 VBG HCO3 VBG O2 Sat (Anthony) VBG Base Excess O2 Delivery Device No Result Required. Oxygen Flow Rate Room air Vent Mode No Result Required. Vent Rate No Result Required. Mechanical Rate No Result Required. Pressure Support Vent No Result Required. Sodium Potassium Chloride Carbon Dioxide Anion Gap BUN Creatinine Est GFR (CKD-EPI)AfAm Est GFR (CKD-EPI)NonAf Random Glucose Calcium Total Bilirubin AST ALT Alkaline Phosphatase Creatine Kinase Troponin I B-Natriuretic Peptide Total Protein Albumin Urine Color Urine Appearance Urine pH Urine Protein Urine Glucose (UA) Urine Ketones Urine Blood Urine Nitrite Urine Bilirubin Urine Urobilinogen Ur Leukocyte Esterase Urine RBC Urine WBC Ur Transition Epith Cell Urine Bacteria Hyaline Casts Stool Occult Blood Blood Type Antibody Screen Crossmatch Active Medications Generic Name Dose Route Start Last Admin Trade Name Freq PRN Reason Stop Dose Admin Chlorhexidine Gluconate 1 applic 09/05/19 22:00 Hibiclens For Decolonization - TP HS YUE Sodium Chloride 1,000 mls @ 0 mls/hr 09/05/19 12:00 09/05/19 12:15 Normal Saline - IV 1,000 mls/hr ASDIR YUE Administration Wide Open Pantoprazole Sodium 80 mg/ 100 mls @ 10 mls/hr 09/05/19 12:15 09/05/19 12:50 Sodium Chloride IVPB 10 mls/hr Q10H YUE Administration 8 MG/HR Mupirocin 1 applic 09/05/19 22:00 Bactroban Ointment (For Decolonization) - NS 09/10/19 21:59 BID YUE ASSESSMENT/PLAN: 48 YO M with PMH of EtOH (1 bottle vodka daily), HTN, HLD, DM, presented to the ER with complaints of abdominal distension, LE edema for the past 3 months, as well as melena over the past 2 weeks. #GI - Anasarca 2/2 cirrhosis/renal failure - Therapeutic paracentesis performed, 9.5L drained, Albumin 50mg administered, cx ordered - Abdominal USG pre-paracentesis: shows large volume ascites and hepatomegaly and fatty liver - GI consult: repeat abdominal USG after tap to assess for splenomegaly - Pantoprazole 80mg in N/S @ 8mg/HR #Heme - LE Doppler: No evidence of dvt - PT 14.8, INR 1.33, PTT 29.3, FFP, Vit K as needed - H&H: Hgb 7.0 -> 6.5, PRBC after paracentesis - Fe panel ordered #Renal - UA: 2+ protein, 1+ ketones, 2+ bili - Renal failure - Received Bicarb #Respiratory - ABG pH 7.32, pCO2 20.1, HCO3 10.2, - Lasix 80mg iv now #Renal - Cortes placed, monitor I/O - Possible HD #FEN - Hyponatremia likely 2/2 hepatorenal syndrome - N/S 1L @ wide open #ID - WBC 10.9 -> 9.6 - Lactic Acid 3.3 #Dispo - Monitor respiratoy status in ICU ATTENDING PHYSICIAN STATEMENT I saw and evaluated the patient. I reviewed the resident's note and discussed the case with the resident. I agree with the resident's findings and plan as documented. SUBJECTIVE: OBJECTIVE: ASSESSMENT AND PLAN:
--- NOTE | 2019-09-05 18:09 | PN ---
Teaching Attending Note Name of Resident: Prateek Padilla ATTENDING PHYSICIAN STATEMENT I saw and evaluated the patient. I reviewed the resident's note and discussed the case with the resident. I agree with the resident's findings and plan as documented. SUBJECTIVE: Pt seen and examined in the ICU. Abdomen distended with shortness of breath. Agreeable to paracentesis. OBJECTIVE: Vital Signs Period Temp Pulse Resp BP Sys/Foy Pulse Ox Last 24 Hr 97.9 F-98 F 97-103 20-28 101-124/50-74 100-100 Intake & Output 09/02/19 09/03/19 09/04/19 09/05/19 23:59 23:59 23:59 23:59 Output Total 40 Balance -40 Weight 136.894 kg Gen: tachypneic at rest Heart: RRR Lung: decreased breath sounds at the bases Abd: distended, nontender Ext: + edema CBC, BMP 09/05/19 17:30 Active Medications Albumin Human (Albumin Human 25%) 25 gm IVPB Q30M YUE Stop: 09/05/19 19:20 Chlorhexidine Gluconate (Hibiclens For Decolonization -) 1 applic TP HS YUE Sodium Chloride (Normal Saline -) 1,000 mls @ 0 mls/hr IV ASDIR YUE Last Admin: 09/05/19 12:15 Dose: 1,000 mls/hr Pantoprazole Sodium 80 mg/ (Sodium Chloride) 100 mls @ 10 mls/hr IVPB Q10H YUE Last Admin: 09/05/19 12:50 Dose: 10 mls/hr Mupirocin (Bactroban Ointment (For Decolonization) -) 1 applic NS BID YUE Stop: 09/10/19 21:59 ASSESSMENT AND PLAN: Massive Ascites Impending Acute Respiratory Failure Acute Kidney Injury Lactic/Metabolic Acidosis Anemia Alcohol Abuse r/o Liver Cirrhosis Hyponatremia HTN DM Hyperlipidemia Morbid Obesity - will perform diagnostic/therapeutic paracentesis with albumin replacement - send fluid for cell count, total protein, albumin, cultures and cytology - transfuse PRBC - monitor H/H - protonix - GI eval - O2 to keep SpO2 >90% - echocardiogram - lasix - monitor lytes - monitor urine output, creatinine - DVT prophylaxis - continue ICU monitoring
[2019-09-05 18:11] LABS: ALBUMIN 2.3 g/dl (3.4-5.0); BILIRUBIN,TOTAL 1.3 mg/dL (0.2-1); BLOOD UREA NITROGEN 66.4 mg/dL (7-18); CALCIUM 7.8 mg/dL (8.5-10.1); CREATININE 3.9 mg/dL (0.55-1.3); POTASSIUM 5.2 mmol/L (3.5-5.1); TOT PROT 6.3 g/dl (6.4-8.2)
[2019-09-05] MEDS: ALBUMIN HUMAN 25% 12.5 GM/50 ML VIAL IVPB SCH ×2 (18:12→18:53)
[2019-09-05 19:18] LABS: MAGNESIUM 1.8 mg/dL (1.8-2.4)
--- NOTE | 2019-09-05 19:46 | PROC ---
Procedure Note Procedure: Large volume paracentesis performed. Consent was obtained and all questions were answered.. Pt dressed sterily. Procedure performed in sterile manner. 9.7L of peritoneal fluid obtained. Samples sent for analysis. Pt states that his breathing has improved. Vitals were normal throughout procedure. Pt tolerated procedure well. Xeroform and sterile gauze placed over puncture site.
[2019-09-05 21:48] LABS: PERITONEAL FLUID LYMPHOCYTE 43 %; PERITONEAL FLUID MACROPHAGE 4 %; PERITONEAL FLUID MESOTHELIAL 13 %; PERITONEAL FLUID MONOCYTE 7 %; PERITONEAL FLUID NEUTROPHIL 33 %; PERITONEAL RBC 574 /mm3
[2019-09-05] MEDS: MUPIROCIN 2% TOPICAL OINTMENT FOR DECOLONIZATION NS SCH (22:12)
[2019-09-05] MEDS: CHLORHEXIDINE GLUCONATE 4% CLEANSER FOR DECOLONIZATION TP SCH (22:13)
--- NOTE | 2019-09-05 22:15 | PN ---
Progress Note (short form) - Note Progress Note: Case d/w nephro, Dr. Rutledge, who recommends giving bicarb and monitoring HCO3 on BMP. In addition, he recommends 80mg IV lasix given w/ albumin (which was given during paracentesis) while closely monitoring BP. Bicarb ordered. Lasix ordered. Albumin already given. Repeat BMP @2300.
[2019-09-06 00:16] LABS: CALCIUM 7.7 mg/dL (8.5-10.1); CREATININE 3.5 mg/dL (0.55-1.3)
--- NOTE | 2019-09-06 00:34 | PN ---
Progress Note (short form) - Note Progress Note: Laboratory Tests 09/05/19 23:40 Sodium 127 L Potassium 5.0 Chloride 96 L Carbon Dioxide 14 L BUN 64.0 H Creatinine 3.5 H Labs reviewed - sodium and potassium improving - bicarb improving - renal function starting to improve - monitor urine output - cont bicarb - repeat labs in am Problem List - Problems (1) Ascites Code(s): R18.8 - OTHER ASCITES (2) Anasarca Code(s): R60.1 - GENERALIZED EDEMA (3) Coagulopathy Code(s): D68.9 - COAGULATION DEFECT, UNSPECIFIED (4) Hyponatremia Code(s): E87.1 - HYPO-OSMOLALITY AND HYPONATREMIA (5) Renal failure Code(s): N19 - UNSPECIFIED KIDNEY FAILURE (6) Symptomatic anemia Code(s): D64.9 - ANEMIA, UNSPECIFIED
[2019-09-06] MEDS ORDERED: SODIUM BICARBONATE 8.4% 50 MEQ/50 ML DISP.SYRIN IVPUSH ONE (00:35)
[2019-09-06] MEDS ORDERED: LACTATED RINGERS SOLUTION 1000 ML INFUS.BAG IV PRN (00:49)
[2019-09-06] MEDS ORDERED: SODIUM BICARBONATE 8.4% 50 MEQ/50 ML VIAL ONE (00:59)
[2019-09-06 06:59] LABS: HEMATOCRIT 20.2 % (35.4-49); MCH 26.7 pg (25.7-33.7); MEAN PLT VOLUME 8.2 fl (7.5-11.1); PLATELET COUNT 143 K/MM3 (134-434); RBC 2.49 M/mm3 (4.00-5.60); RDW 18.4 % (11.9-15.9); WHITE BLOOD COUNT 7.6 K/mm3 (4.0-10.0)
[2019-09-06 07:02] LABS: HEMOGLOBIN 6.7 GM/dL (11.7-16.9)
[2019-09-06 07:31] LABS: ALBUMIN 2.3 g/dl (3.4-5.0); BILIRUBIN,TOTAL 1.4 mg/dL (0.2-1); CALCIUM 7.7 mg/dL (8.5-10.1); CREATININE 3.3 mg/dL (0.55-1.3); POTASSIUM 4.5 mmol/L (3.5-5.1); TOT PROT 5.9 g/dl (6.4-8.2)
--- NOTE | 2019-09-06 08:24 | PN ---
Progress Note, Physician - Current Medication List Current Medications: Active Medications Chlorhexidine Gluconate (Hibiclens For Decolonization -) 1 applic TP HS YUE Last Admin: 09/05/19 22:13 Dose: 1 applic Sodium Chloride (Normal Saline -) 1,000 mls @ 0 mls/hr IV ASDIR YUE Last Admin: 09/05/19 12:15 Dose: 1,000 mls/hr Pantoprazole Sodium 80 mg/ (Sodium Chloride) 100 mls @ 10 mls/hr IVPB Q10H [facility] Last Admin: 09/05/19 22:12 Dose: 10 mls/hr Mupirocin (Bactroban Ointment (For Decolonization) -) 1 applic NS BID YUE Stop: 09/10/19 21:59 Last Admin: 09/05/19 22:12 Dose: 1 applic Nystatin (Mycostatin Cream -) 1 applic TP BID YUE - Objective Vital Signs: Vital Signs Temperature 98.4 F 09/06/19 06:00 Pulse Rate 100 H 09/06/19 06:00 Respiratory Rate 24 H 09/06/19 06:00 Blood Pressure 118/55 L 09/06/19 06:00 O2 Sat by Pulse Oximetry (%) 98 09/06/19 07:31 Cardiovascular: Yes: S1, S2 Respiratory: Yes: Regular, CTA Bilaterally Gastrointestinal: Yes: Normal Bowel Sounds, Soft, Ascites, Distention Edema: Yes Integumentary: Yes: Rash Neurological: Yes: Alert, Oriented Labs: CBC, BMP 09/06/19 05:20 09/06/19 05:20 INR, PTT INR 1.33 (0.82-1.09) H 09/05/19 11:06 Problem List - Problems (1) Renal failure Assessment/Plan: repeat cmp now after the bicarb amps agudelo and monitor urine output lasix 80mg iv now monitor in icu- respiratory status may need HD check lactic acid as patient was on metformin kidney noted on the abdominal sonogram Laboratory Tests 09/05/19 09/06/19 17:30 05:20 BUN 66.4 H 67.0 H Creatinine 3.9 H 3.3 H Code(s): N19 - UNSPECIFIED KIDNEY FAILURE (2) Anasarca Assessment/Plan: secondary to cirrhosis and renal failure abdominal sono shows large volume ascites and hepatomegaly and fatty liver venous lower extremity doppler shows no dvt check coags paracentesis done--9800 cc removed monitor respiratory status secondary to genaralized volume overload Code(s): R60.1 - GENERALIZED EDEMA (3) Ascites Assessment/Plan: as above Code(s): R18.8 - OTHER ASCITES (4) Rash Code(s): R21 - RASH AND OTHER NONSPECIFIC SKIN ERUPTION (5) Coagulopathy Assessment/Plan: ffp and vitmain K as needed monitor coags Code(s): D68.9 - COAGULATION DEFECT, UNSPECIFIED (6) Symptomatic anemia Assessment/Plan: prbc one gi eval noted protonix drip octreotide drip per gi serial cbc Laboratory Tests 09/05/19 09/05/19 09/06/19 11:06 17:30 05:20 Hgb 7.0 L 6.5 L* 6.7 L* iron panel Code(s): D64.9 - ANEMIA, UNSPECIFIED
[2019-09-06 09:13] LABS: ARTERIAL BLD GAS O2 SATURATION 98.9 % (95-98); ARTERIAL BLOOD GAS BASE EXCESS -6.4 meq/l (-2-2); ARTERIAL BLOOD GAS PO2 112 mmHg (80-100); ARTERIAL BLOOD GAS pH 7.47 (7.35-7.45)
[2019-09-06 09:14] LABS: ALLENS TEST POSITIVE
[2019-09-06] MEDS ORDERED: CEFTRIAXONE 1 GM in DEXTROSE 5%-WATER - 50 ML IVPB ONE (10:00)
[2019-09-06] MEDS ORDERED: PT OWN MED DRAWER 7, Y5N ONE ×2 (10:06→11:59)
[2019-09-06] MEDS ORDERED: cefTRIAXone SODIUM 1 GM VIAL ONE (10:07)
[2019-09-06] MEDS ORDERED: DEXTROSE 5%-WATER - 50 ML IVPB ONE (10:07)
[2019-09-06] MEDS: PANTOPRAZOLE SODIUM 80 MG in SODIUM CHLORIDE 100 ML IVPB SCH (10:25)
[2019-09-06] MEDS: NYSTATIN 100,000 UNIT/GM TOPICAL CREAM 15 GM TUBE TP SCH ×2 (10:28→21:48)
[2019-09-06] MEDS: MUPIROCIN 2% TOPICAL OINTMENT FOR DECOLONIZATION NS SCH ×2 (10:45→21:47)
[2019-09-06] MEDS ORDERED: LORazepam 2 MG/ML SDV VIAL IVPUSH PRN (11:00)
--- NOTE | 2019-09-06 11:06 | CON.CARD ---
Consult Consult Specialty:: Cardiology Referred by:: Dr. Mcnally Reason for Consultation:: CHF - History of Present Illness Chief Complaint: Swelling History of Present Illness: 48 year old man with pmh etoh abuse, htn, hld, dmii admitted with anasarca including ascites, melena, sob. s/p paracentesis 09/05/19 with 9.7 L fluid removed. pt states he feels better since paracentesis. states he has noticed swelling for at least 1 month. denies any chest pain, palpitations. ECHO 12/09/18 Normal LV/RV function, mild valvular abnl - History Source History Provided By: Patient, Family Member Limitations to Obtaining History: Poor Historian - Past Medical History Cardio/Vascular: Yes: HTN, Hyperlipdemia Endocrine: Yes: Diabetes Mellitus - Alcohol/Substance Use Hx Alcohol Use: Yes (wine occ) Number of Drinks Daily: 1 (ottle vodka daily) - Smoking History Smoking history: Never smoked Have you smoked in the past 12 months: No Home Medications - Allergies Allergies/Adverse Reactions: Allergies Allergy/AdvReac Type Severity Reaction Status Date / Time No Known Allergies Allergy Verified 09/05/19 10:55 - Home Medications Home Medications: Ambulatory Orders Aspirin [ASA -] 81 mg PO DAILY 01/07/19 Dulaglutide [Trulicity] 1 dose SQ WEEKLY 09/05/19 Review of Systems - Review of Systems Constitutional: reports: Weakness. denies: No Symptoms, Chills, Diaphoresis, Fever, Lethargy, Loss of Appetite, Malaise, Night Sweats, Unintentional Wgt. Loss, Other Eyes: denies: No Symptoms, Blind Spots, Blurred Vision, Double Vision, Eye Pain , Floaters, Photophobia, Recent Change in Vision, Other HENT: denies: No Symptoms, Difficult Swallowing, Ear Discharge, Ear Pain, Epistaxis, Gingival Bleeding, Hearing Loss, Mouth Swelling, Nasal Congestion, Ocular Prosthesis, Throat Pain, Toothache, Ringing in Ears, Other Neck: denies: No Symptoms, Decreased ROM, Lumps, Pain on Movement, Stiffness, Swollen Glands, Tenderness, Other Cardiovascular: reports: Edema, Shortness of Breath. denies: No Symptoms, Chest Pain, Palpitations, Other Respiratory: reports: Orthopnea, PND, SOB, SOB on Exertion. denies: No Symptoms , Cough, Exercise Intolerance, Hemoptysis, Snoring, Wheezing, Other Gastrointestinal: reports: Bloating, Melena. denies: No Symptoms, Abdominal Pain, Constipation, Diarrhea, Dysphagia, Indigestion, Nausea, Rectal Bleeding, Vomiting, Vomiting Blood, Other Genitourinary: denies: No Symptoms, Burning, Discharge, Dysuria, Flank Pain, Frequency, Hematuria, Incontinence, Lesions, Menses, Pain, Testicular Mass, Testicular Pain, Testicular Swelling, Urgency, Vaginal Bleeding, Other Breasts: denies: No Symptoms Reported, See HPI, Breast Implants, Discharge from Nipple, Lumps, Pain, Skin Changes, Other Musculoskeletal: denies: No Symptoms, Back Pain, Crepitus, Decreased ROM, Extremity Pain, Joint Pain, Joint Swelling, Muscle Pain, Muscle Cramps, Muscle Weakness, Other Integumentary: denies: No Symptoms, Blister, Bruising, Change in Color, Eczema, Erythema, Incision, Lesions, Lump, Pallor, Pruritis, Rash, Wound, Other Neurological: denies: No Symptoms, Change in LOC, Change in Speech, Confusion, Dizziness, Headache, Incoordination, Numbness, Parasthesia, Pre-Existing Deficit , Seizure, Syncope, Tremors, Unsteady Gait, Weakness, Other Endocrine: denies: No Symptoms, Excessive Sweating, Flushing, Increased Hunger, Increased Thirst, Intolerance to Cold, Intolerance to Heat, Unexplained Weight Gain, Unexplained Weight Loss, Other Hematology/Lymphatic: denies: No Symptoms, Easily Bruised, Excessive Bleeding, Swollen Glands, Other Psychiatric: denies: No Symptoms, Altered Sleep Pattern, Anxiety, Depression, Hallucinations, Panic, Paranoia, Suicidal, Other - Risk Factors Known Risk Factors: Yes: Hypercholesterolemia, Hypertension Vital Signs: Vital Signs Temperature 97.7 F 09/06/19 09:00 Pulse Rate 100 H 09/06/19 10:00 Respiratory Rate 22 H 09/06/19 10:00 Blood Pressure 114/65 09/06/19 10:00 O2 Sat by Pulse Oximetry (%) 98 09/06/19 07:31 Constitutional: Yes: No Distress, Calm Eyes: Yes: Conjunctiva Clear, EOM Intact HENT: Yes: Atraumatic, Normocephalic Neck: Yes: Supple, Trachea Midline Respiratory: Yes: Regular, Diminished, On Nasal O2. No: Rales, Rhonchi, SOB, Wheezes Gastrointestinal: Yes: Normal Bowel Sounds, Soft. No: Distention, Tenderness Cardiovascular: Yes: Regular Rate and Rhythm. No: Bradycardia, Tachycardia, Pulse Irregular, Gallop, Rub, Varicosities JVD: No Carotid Bruit: No PMI: Non-Displaced Heart Sounds: Yes: S1, S2. No: Split S2, S3, S4, Clicks, Gallop, Rub, Bruit Murmur: No: Systolic Murmur, Diastolic Murmur Edema: Yes Edema: LLE: 2+, RLE: 2+ Peripheral Pulses WNL: Yes Neurological: Yes: Alert, Oriented Psychiatric: Yes: Alert, Oriented - Other Data Labs, Other Data: CBC, BMP 09/06/19 05:20 09/06/19 05:20 INR, PTT INR 1.33 (0.82-1.09) H 09/05/19 11:06 Troponin, BNP 09/05/19 09/05/19 11:06 11:06 Troponin I 0.04 B-Natriuretic Peptide 707.7 H Troponin, BNP 09/05/19 09/05/19 11:06 11:06 Troponin I 0.04 B-Natriuretic Peptide 707.7 H nsr 98bpm Echo: Pending, Report Reviewed Imaging - Results Chest X-ray: Report Reviewed, Image Reviewed EKG: Report Reviewed, Image Reviewed Other: Report Reviewed, Image Reviewed (tele-nsr, sinus tach no sig arrhythmias) Assessment/Plan 48 year old man with pmh etoh abuse, htn, hld, dmii admitted with anasarca including ascites, melena, sob. s/p paracentesis 09/05/19 with 9.7 L fluid removed. pt states he feels better since paracentesis. states he has noticed swelling for at least 1 month. denies any chest pain, palpitations. ECHO 12/09/18 Normal LV/RV function, mild valvular abnl Anasarca/ascites -does not appear to be primarily cardiac in origin -s/p paracentesis 09/05/19 with 9.7 L fluid removed. -ECHO 12/09/18 Normal LV/RV function, mild valvular abnl -lasix as per renal/GI reccs -GI/cirrhois/malignancy work up -fup repeat echo today
--- NOTE | 2019-09-06 11:16 | EKG ---
Test Reason : Blood Pressure : / mmHG Vent. Rate : 098 BPM Atrial Rate : 098 BPM P-R Int : 172 ms QRS Dur : 086 ms QT Int : 350 ms P-R-T Axes : 100 010 043 degrees QTc Int : 446 ms NORMAL SINUS RHYTHM LOW VOLTAGE QRS BORDERLINE ECG NO PREVIOUS ECGS AVAILABLE Confirmed by MD Haily, Matias ([id number]) on 09/06/2019 11:16:15 AM Referred By: GRACE ARANA Confirmed By:Matias Johansen MD
[2019-09-06] MEDS ORDERED: FUROSEMIDE 40 MG/4 ML INJECTABLE VIAL IVPUSH ONE (11:20)
--- NOTE | 2019-09-06 11:55 | PN ---
Progress Note, Physician History of Present Illness: Pt seen and examined at bedside. He is awake and alert. He feels more comfortable today. He feels that his breathing is improved. - Current Medication List Current Medications: Active Medications Chlorhexidine Gluconate (Hibiclens For Decolonization -) 1 applic TP HS YUE Last Admin: 09/05/19 22:13 Dose: 1 applic Sodium Chloride (Normal Saline -) 1,000 mls @ 0 mls/hr IV ASDIR YUE Last Admin: 09/05/19 12:15 Dose: 1,000 mls/hr Pantoprazole Sodium 80 mg/ (Sodium Chloride) 100 mls @ 10 mls/hr IVPB Q10H YUE Last Admin: 09/06/19 10:25 Dose: 10 mls/hr Octreotide Acetate 200 mcg/Octreotide Acetate 1,000 mcg/Dextrose 500 mls @ 20.833 mls/hr IVPB ASDIR YUE; Protocol Lorazepam (Ativan Injection -) 2 mg IVPUSH Q4H PRN PRN Reason: ANXIETY Mupirocin (Bactroban Ointment (For Decolonization) -) 1 applic NS BID YUE Stop: 09/10/19 21:59 Last Admin: 09/06/19 10:45 Dose: 1 applic Nystatin (Mycostatin Cream -) 1 applic TP BID YUE Last Admin: 09/06/19 10:28 Dose: 1 applic - Objective Vital Signs: Vital Signs Temperature 97.7 F 09/06/19 09:00 Pulse Rate 100 H 09/06/19 10:00 Respiratory Rate 22 H 09/06/19 10:00 Blood Pressure 114/65 09/06/19 10:00 O2 Sat by Pulse Oximetry (%) 98 09/06/19 07:31 Constitutional: Yes: Calm Eyes: Yes: Conjunctiva Clear HENT: Yes: Atraumatic Neck: Yes: Supple Cardiovascular: Yes: S1, S2 Respiratory: Yes: On Nasal O2 Gastrointestinal: Yes: Ascites, Distention, Other (markedly improved) Genitourinary: Yes: Cortes Present Musculoskeletal: Yes: WNL Edema: Yes Edema: LLE: 3+, RLE: 3+ Integumentary: Yes: Rash Neurological: Yes: Oriented Psychiatric: Yes: Oriented Labs: CBC, BMP 09/06/19 05:20 09/06/19 05:20 INR, PTT INR 1.33 (0.82-1.09) H 09/05/19 11:06 Problem List - Problems (1) Ascites Code(s): R18.8 - OTHER ASCITES (2) Anasarca Code(s): R60.1 - GENERALIZED EDEMA (3) Coagulopathy Code(s): D68.9 - COAGULATION DEFECT, UNSPECIFIED (4) Hyponatremia Code(s): E87.1 - HYPO-OSMOLALITY AND HYPONATREMIA (5) Renal failure Code(s): N19 - UNSPECIFIED KIDNEY FAILURE (6) Symptomatic anemia Code(s): D64.9 - ANEMIA, UNSPECIFIED Assessment/Plan Current Medications Generic Name Dose Route Start Last Admin Trade Name Freq PRN Reason Stop Dose Admin Chlorhexidine Gluconate 1 applic 09/05/19 22:00 09/05/19 22:13 Hibiclens For Decolonization - TP 1 applic HS YUE Administration Sodium Chloride 1,000 mls @ 0 mls/hr 09/05/19 12:00 09/05/19 12:15 Normal Saline - IV 1,000 mls/hr ASDIR YUE Administration Wide Open Pantoprazole Sodium 80 mg/ 100 mls @ 10 mls/hr 09/05/19 12:15 09/06/19 10:25 Sodium Chloride IVPB 10 mls/hr Q10H YUE Administration 8 MG/HR Octreotide Acetate 200 mcg/ 500 mls @ 20.833 mls/hr 09/06/19 08:30 Octreotide Acetate 1,000 mcg/ IVPB Dextrose ASDIR YUE Protocol Lorazepam 2 mg 09/06/19 11:00 Ativan Injection - IVPUSH Q4H PRN ANXIETY Mupirocin 1 applic 09/05/19 22:00 09/06/19 10:45 Bactroban Ointment (For Decolonization) - NS 09/10/19 21:59 1 applic BID YUE Administration Nystatin 1 applic 09/06/19 10:00 09/06/19 10:28 Mycostatin Cream - TP 1 applic BID YUE Administration Laboratory Tests 09/06/19 08:35 Lactic Acid 1.4 Impression 1. JUSTINE 2. hyponatremia hypervolemic 3. etoh abuse 4. fluid overload 5. metabolic overload 6. DM 7. htn 8. hld 9. 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
--- NOTE | 2019-09-06 11:55 | PN ---
Teaching Attending Note Name of Resident: Cat Maynard ATTENDING PHYSICIAN STATEMENT I saw and evaluated the patient. I reviewed the resident's note and discussed the case with the resident. I agree with the resident's findings and plan as documented. SUBJECTIVE: Pt seen and examined in the ICU. s/p large volume paracentesis draining 9.7L serous fluid. States breathing is much improved. Good urine output overnight with lasix. No fevers or chills. OBJECTIVE: Vital Signs Period Temp Pulse Resp BP Sys/Foy Pulse Ox Last 24 Hr 97.5 F-99 F 97-110 20-28 84-124/45-74 98-100 Intake & Output 09/03/19 09/04/19 09/05/19 09/06/19 23:59 23:59 23:59 23:59 Intake Total 10 1020 Output Total 14804 1200 Balance -50211 -180 Weight 136.894 kg 124.483 kg Gen: less tachypneic Heart: RRR Lung: decreased breath sounds at the bases Abd: soft, distended, nontender Ext: + edema CBC, BMP 09/06/19 05:20 09/06/19 05:20 Active Medications Chlorhexidine Gluconate (Hibiclens For Decolonization -) 1 applic TP HS YUE Last Admin: 09/05/19 22:13 Dose: 1 applic Sodium Chloride (Normal Saline -) 1,000 mls @ 0 mls/hr IV ASDIR YUE Last Admin: 09/05/19 12:15 Dose: 1,000 mls/hr Pantoprazole Sodium 80 mg/ (Sodium Chloride) 100 mls @ 10 mls/hr IVPB Q10H YUE Last Admin: 09/06/19 10:25 Dose: 10 mls/hr Octreotide Acetate 200 mcg/Octreotide Acetate 1,000 mcg/Dextrose 500 mls @ 20.833 mls/hr IVPB ASDIR YUE; Protocol Lorazepam (Ativan Injection -) 2 mg IVPUSH Q4H PRN PRN Reason: ANXIETY Mupirocin (Bactroban Ointment (For Decolonization) -) 1 applic NS BID YUE Stop: 09/10/19 21:59 Last Admin: 09/06/19 10:45 Dose: 1 applic Nystatin (Mycostatin Cream -) 1 applic TP BID YUE Last Admin: 09/06/19 10:28 Dose: 1 applic ASSESSMENT AND PLAN: Massive Ascites s/p Large Volume Paracentesis Acute Kidney Injury Lactic/Metabolic Acidosis GI Bleed Anemia Alcohol Abuse r/o Liver Cirrhosis Hyponatremia HTN DM Hyperlipidemia Morbid Obesity - f/u ascites fluid total protein, albumin, cultures and cytology - transfuse PRBC - monitor H/H - protonix, octreotide - GI f/u - O2 to keep SpO2 >90% - echocardiogram - continue lasix - monitor lytes - monitor urine output, creatinine - monitor for withdrawal symptoms - DVT prophylaxis - continue ICU monitoring
[2019-09-06] MEDS ORDERED: SODIUM BICARBONATE 650 MG TABLET PO SCH ×2 (11:57→14:00)
[2019-09-06] MEDS: OCTREOTIDE ACETATE 200 MCG, OCTREOTIDE ACETATE 1,000 MCG in DEXTROSE 5%-WATER - 496 ML IVPB SCH (12:11)
--- NOTE | 2019-09-06 13:11 | PN ---
Physical Exam: SUBJECTIVE: Patient seen and examined this morning. States he is feeling better today compared to yesterday. He denies headache, hallucinations, anxiety, agitation. States he would like to cut down on his drinking. Denies having any bowel movements. OBJECTIVE: Vital Signs Period Temp Pulse Resp BP Sys/Foy Pulse Ox Last 24 Hr 97.5 F-99 F 97-110 20-28 84-124/45-74 98-100 GENERAL: The patient is awake, alert, and fully oriented, in no acute distress. HEAD: Normal with no signs of trauma. EYES: PERRL, extraocular movements intact, sclera anicteric, conjunctiva clear. No ptosis. ENT: oropharynx clear without exudates, dry mucous membranes. NECK: Trachea midline, full range of motion, supple. LUNGS: Breath sounds equal, clear to auscultation bilaterally, no wheezes, no crackles, no accessory muscle use. HEART: Regular rate and rhythm, S1, S2 without murmur, rub or gallop. ABDOMEN: Distended, +fluid wave, Soft, nontender, normoactive bowel sounds RECTAL: no [place] blood noted, no hemorrhoids or fissures noted, dark (black) stool on gloved hand EXTREMITIES: 2+ non pitting edema of bilateral lower extremities, warm NEUROLOGICAL: Normal speech, gait not observed. sensation grossly intact PSYCH: Normal mood, normal affect. Laboratory Results - last 24 hr 09/05/19 09/05/19 09/05/19 11:06 11:06 12:05 WBC RBC Hgb Hct MCV MCH MCHC RDW Plt Count MPV Absolute Neuts (auto) Neutrophils % Lymphocytes % Monocytes % Eosinophils % Basophils % Nucleated RBC % Hypochromia 1+ Anisocytosis 1+ Target Cells 1+ Anticoagulation Therapy Puncture Site ABG pH ABG pCO2 at Pt Temp ABG pO2 at Pt Temp ABG HCO3 ABG O2 Sat (Measured) ABG O2 Content ABG Base Excess Puma Test VBG pH POC VBG pCO2 POC VBG pO2 VBG HCO3 VBG O2 Sat (Anthony) VBG Base Excess O2 Delivery Device Oxygen Flow Rate Vent Mode Vent Rate Mechanical Rate Pressure Support Vent Sodium Potassium Chloride Carbon Dioxide Anion Gap BUN Creatinine Est GFR (CKD-EPI)AfAm Est GFR (CKD-EPI)NonAf POC Glucometer Random Glucose Serum Osmolality Lactic Acid Calcium Magnesium Iron TIBC Iron Saturation Unsaturated IBC Total Bilirubin AST ALT Alkaline Phosphatase B-Natriuretic Peptide 707.7 H Total Protein Albumin Urine Color Urine Appearance Urine pH Urine Protein Urine Glucose (UA) Urine Ketones Urine Blood Urine Nitrite Urine Bilirubin Urine Urobilinogen Ur Leukocyte Esterase Urine RBC Urine WBC Ur Transition Epith Cell Urine Bacteria Hyaline Casts Urine Osmolality Ur Random Creatinine Ur Random Sodium Ur Random Potassium Ur Random Chloride Peritoneal WBC Peritoneal RBC Periton Neutrophils Periton Lymphocytes Peritoneal Monocytes Periton Mesothelial Periton Macrophages Stool Occult Blood Blood Type A POSITIVE Antibody Screen Negative Crossmatch See Detail 09/05/19 09/05/19 09/05/19 12:06 12:25 12:25 WBC RBC Hgb Hct MCV MCH MCHC RDW Plt Count MPV Absolute Neuts (auto) Neutrophils % Lymphocytes % Monocytes % Eosinophils % Basophils % Nucleated RBC % Hypochromia Anisocytosis Target Cells Anticoagulation Therapy Puncture Site ABG pH ABG pCO2 at Pt Temp ABG pO2 at Pt Temp ABG HCO3 ABG O2 Sat (Measured) ABG O2 Content ABG Base Excess Puma Test VBG pH 7.32 POC VBG pCO2 24.3 L POC VBG pO2 52.4 H VBG HCO3 12.2 L VBG O2 Sat (Anthony) 78.6 VBG Base Excess -12.8 L O2 Delivery Device Oxygen Flow Rate Vent Mode Vent Rate Mechanical Rate Pressure Support Vent Sodium Potassium Chloride Carbon Dioxide Anion Gap BUN Creatinine Est GFR (CKD-EPI)AfAm Est GFR (CKD-EPI)NonAf POC Glucometer Random Glucose Serum Osmolality Lactic Acid Calcium Magnesium Iron TIBC Iron Saturation Unsaturated IBC Total Bilirubin AST ALT Alkaline Phosphatase B-Natriuretic Peptide Total Protein Albumin Urine Color Urine Appearance Urine pH Urine Protein Urine Glucose (UA) Urine Ketones Urine Blood Urine Nitrite Urine Bilirubin Urine Urobilinogen Ur Leukocyte Esterase Urine RBC Urine WBC Ur Transition Epith Cell Urine Bacteria Hyaline Casts Urine Osmolality Ur Random Creatinine Ur Random Sodium Ur Random Potassium Ur Random Chloride Peritoneal WBC Peritoneal RBC Periton Neutrophils Periton Lymphocytes Peritoneal Monocytes Periton Mesothelial Periton Macrophages Stool Occult Blood Negative Blood Type A POSITIVE Antibody Screen Crossmatch 09/05/19 09/05/19 09/05/19 13:25 16:43 17:30 WBC 9.6 RBC 2.45 L Hgb 6.5 L* Hct 20.4 L MCV 83.1 MCH 26.5 MCHC 31.9 L RDW 19.0 H Plt Count 179 MPV 7.8 Absolute Neuts (auto) 8.4 H Neutrophils % 87.8 H Lymphocytes % 2.9 L Monocytes % 8.8 Eosinophils % 0.2 Basophils % 0.3 Nucleated RBC % 0 Hypochromia Anisocytosis Target Cells Anticoagulation Therapy No Result Required. Puncture Site Right radial ABG pH 7.32 L ABG pCO2 at Pt Temp 20.1 L ABG pO2 at Pt Temp 107 H ABG HCO3 10.2 L ABG O2 Sat (Measured) 97.7 ABG O2 Content 7.6 ABG Base Excess -14.7 L Puma Test Positive VBG pH POC VBG pCO2 POC VBG pO2 VBG HCO3 VBG O2 Sat (Anthony) VBG Base Excess O2 Delivery Device No Result Required. Oxygen Flow Rate Room air Vent Mode No Result Required. Vent Rate No Result Required. Mechanical Rate No Result Required. Pressure Support Vent No Result Required. Sodium Potassium Chloride Carbon Dioxide Anion Gap BUN Creatinine Est GFR (CKD-EPI)AfAm Est GFR (CKD-EPI)NonAf POC Glucometer Random Glucose Serum Osmolality Lactic Acid Calcium Magnesium Iron TIBC Iron Saturation Unsaturated IBC Total Bilirubin AST ALT Alkaline Phosphatase B-Natriuretic Peptide Total Protein Albumin Urine Color Yellow Urine Appearance Slightly Urine pH 5.0 Urine Protein 2+ H Urine Glucose (UA) Negative Urine Ketones 1+ H Urine Blood Trace-intact Urine Nitrite Negative Urine Bilirubin 2+ H Urine Urobilinogen 1.0 Ur Leukocyte Esterase Negative Urine RBC 2-5 Urine WBC 0-2 Ur Transition Epith Cell Few Urine Bacteria Few Hyaline Casts 0-2 Urine Osmolality Ur Random Creatinine Ur Random Sodium Ur Random Potassium Ur Random Chloride Peritoneal WBC Peritoneal RBC Periton Neutrophils Periton Lymphocytes Peritoneal Monocytes Periton Mesothelial Periton Macrophages Stool Occult Blood Blood Type Antibody Screen Crossmatch 09/05/19 09/05/19 09/05/19 17:30 17:30 17:30 WBC RBC Hgb Hct MCV MCH MCHC RDW Plt Count MPV Absolute Neuts (auto) Neutrophils % Lymphocytes % Monocytes % Eosinophils % Basophils % Nucleated RBC % Hypochromia Anisocytosis Target Cells Anticoagulation Therapy Puncture Site ABG pH ABG pCO2 at Pt Temp ABG pO2 at Pt Temp ABG HCO3 ABG O2 Sat (Measured) ABG O2 Content ABG Base Excess Puma Test VBG pH POC VBG pCO2 POC VBG pO2 VBG HCO3 VBG O2 Sat (Anthony) VBG Base Excess O2 Delivery Device Oxygen Flow Rate Vent Mode Vent Rate Mechanical Rate Pressure Support Vent Sodium 126 L Potassium 5.2 H Chloride 96 L Carbon Dioxide 12 L Anion Gap 18 H BUN 66.4 H Creatinine 3.9 H Est GFR (CKD-EPI)AfAm 19.67 Est GFR (CKD-EPI)NonAf 16.98 POC Glucometer Random Glucose 96 Serum Osmolality 292 Lactic Acid 3.3 H* Calcium 7.8 L Magnesium 1.8 Iron TIBC Iron Saturation Unsaturated IBC Total Bilirubin 1.3 H AST 55 H ALT 17 Alkaline Phosphatase 179 H B-Natriuretic Peptide Total Protein 6.3 L Albumin 2.3 L Urine Color Urine Appearance Urine pH Urine Protein Urine Glucose (UA) Urine Ketones Urine Blood Urine Nitrite Urine Bilirubin Urine Urobilinogen Ur Leukocyte Esterase Urine RBC Urine WBC Ur Transition Epith Cell Urine Bacteria Hyaline Casts Urine Osmolality Ur Random Creatinine Ur Random Sodium 15 L Ur Random Potassium 39.0 Ur Random Chloride 20 L Peritoneal WBC Peritoneal RBC Periton Neutrophils Periton Lymphocytes Peritoneal Monocytes Periton Mesothelial Periton Macrophages Stool Occult Blood Blood Type Antibody Screen Crossmatch 09/05/19 09/05/19 09/05/19 17:30 17:30 19:00 WBC RBC Hgb Hct MCV MCH MCHC RDW Plt Count MPV Absolute Neuts (auto) Neutrophils % Lymphocytes % Monocytes % Eosinophils % Basophils % Nucleated RBC % Hypochromia Anisocytosis Target Cells Anticoagulation Therapy Puncture Site ABG pH ABG pCO2 at Pt Temp ABG pO2 at Pt Temp ABG HCO3 ABG O2 Sat (Measured) ABG O2 Content ABG Base Excess Puma Test VBG pH POC VBG pCO2 POC VBG pO2 VBG HCO3 VBG O2 Sat (Anthony) VBG Base Excess O2 Delivery Device Oxygen Flow Rate Vent Mode Vent Rate Mechanical Rate Pressure Support Vent Sodium Potassium Chloride Carbon Dioxide Anion Gap BUN Creatinine Est GFR (CKD-EPI)AfAm Est GFR (CKD-EPI)NonAf POC Glucometer Random Glucose Serum Osmolality Lactic Acid Calcium Magnesium Iron TIBC Iron Saturation Unsaturated IBC Total Bilirubin AST ALT Alkaline Phosphatase B-Natriuretic Peptide Total Protein Albumin Urine Color Urine Appearance Urine pH Urine Protein Urine Glucose (UA) Urine Ketones Urine Blood Urine Nitrite Urine Bilirubin Urine Urobilinogen Ur Leukocyte Esterase Urine RBC Urine WBC Ur Transition Epith Cell Urine Bacteria Hyaline Casts Urine Osmolality 307 Ur Random Creatinine 298.0 H Ur Random Sodium Ur Random Potassium Ur Random Chloride Peritoneal WBC 179 Peritoneal RBC 574 Periton Neutrophils 33 Periton Lymphocytes 43 Peritoneal Monocytes 7 Periton Mesothelial 13 Periton Macrophages 4 Stool Occult Blood Blood Type Antibody Screen Crossmatch 09/05/19 09/05/19 09/06/19 21:55 23:40 05:20 WBC 7.6 RBC 2.49 L Hgb 6.7 L* Hct 20.2 L MCV 81.0 MCH 26.7 MCHC 33.0 RDW 18.4 H Plt Count 143 D MPV 8.2 Absolute Neuts (auto) Neutrophils % Lymphocytes % Monocytes % Eosinophils % Basophils % Nucleated RBC % Hypochromia Anisocytosis Target Cells Anticoagulation Therapy Puncture Site ABG pH ABG pCO2 at Pt Temp ABG pO2 at Pt Temp ABG HCO3 ABG O2 Sat (Measured) ABG O2 Content ABG Base Excess Puma Test VBG pH POC VBG pCO2 POC VBG pO2 VBG HCO3 VBG O2 Sat (Anthony) VBG Base Excess O2 Delivery Device Oxygen Flow Rate Vent Mode Vent Rate Mechanical Rate Pressure Support Vent Sodium 127 L Potassium 5.0 Chloride 96 L Carbon Dioxide 14 L Anion Gap 17 H BUN 64.0 H Creatinine 3.5 H Est GFR (CKD-EPI)AfAm 22.42 Est GFR (CKD-EPI)NonAf 19.35 POC Glucometer 113 Random Glucose 100 Serum Osmolality Lactic Acid Calcium 7.7 L Magnesium Iron TIBC Iron Saturation Unsaturated IBC Total Bilirubin AST ALT Alkaline Phosphatase B-Natriuretic Peptide Total Protein Albumin Urine Color Urine Appearance Urine pH Urine Protein Urine Glucose (UA) Urine Ketones Urine Blood Urine Nitrite Urine Bilirubin Urine Urobilinogen Ur Leukocyte Esterase Urine RBC Urine WBC Ur Transition Epith Cell Urine Bacteria Hyaline Casts Urine Osmolality Ur Random Creatinine Ur Random Sodium Ur Random Potassium Ur Random Chloride Peritoneal WBC Peritoneal RBC Periton Neutrophils Periton Lymphocytes Peritoneal Monocytes Periton Mesothelial Periton Macrophages Stool Occult Blood Blood Type Antibody Screen Crossmatch 09/06/19 09/06/19 09/06/19 05:20 08:35 08:45 WBC RBC Hgb Hct MCV MCH MCHC RDW Plt Count MPV Absolute Neuts (auto) Neutrophils % Lymphocytes % Monocytes % Eosinophils % Basophils % Nucleated RBC % Hypochromia Anisocytosis Target Cells Anticoagulation Therapy No Result Required. Puncture Site Right radial ABG pH 7.47 H ABG pCO2 at Pt Temp 23.0 L ABG pO2 at Pt Temp 112 H ABG HCO3 16.4 L ABG O2 Sat (Measured) 98.9 H ABG O2 Content 8.9 ABG Base Excess -6.4 L Puma Test Positive VBG pH POC VBG pCO2 POC VBG pO2 VBG HCO3 VBG O2 Sat (Anthony) VBG Base Excess O2 Delivery Device No Result Required. Oxygen Flow Rate Room air Vent Mode No Result Required. Vent Rate No Result Required. Mechanical Rate No Result Required. Pressure Support Vent No Result Required. Sodium 129 L Potassium 4.5 Chloride 97 L Carbon Dioxide 16 L Anion Gap 16 BUN 67.0 H Creatinine 3.3 H Est GFR (CKD-EPI)AfAm 24.08 Est GFR (CKD-EPI)NonAf 20.77 POC Glucometer Random Glucose 102 Serum Osmolality Lactic Acid 1.4 Calcium 7.7 L Magnesium Iron 68 TIBC 212 L Iron Saturation 32 Unsaturated IBC 144 L Total Bilirubin 1.4 H AST 44 H ALT 17 Alkaline Phosphatase 148 H B-Natriuretic Peptide Total Protein 5.9 L Albumin 2.3 L Urine Color Urine Appearance Urine pH Urine Protein Urine Glucose (UA) Urine Ketones Urine Blood Urine Nitrite Urine Bilirubin Urine Urobilinogen Ur Leukocyte Esterase Urine RBC Urine WBC Ur Transition Epith Cell Urine Bacteria Hyaline Casts Urine Osmolality Ur Random Creatinine Ur Random Sodium Ur Random Potassium Ur Random Chloride Peritoneal WBC Peritoneal RBC Periton Neutrophils Periton Lymphocytes Peritoneal Monocytes Periton Mesothelial Periton Macrophages Stool Occult Blood Blood Type Antibody Screen Crossmatch Active Medications Generic Name Dose Route Start Last Admin Trade Name Freq PRN Reason Stop Dose Admin Chlorhexidine Gluconate 1 applic 09/05/19 22:00 09/05/19 22:13 Hibiclens For Decolonization - TP 1 applic HS YUE Administration Sodium Chloride 1,000 mls @ 0 mls/hr 09/05/19 12:00 09/05/19 12:15 Normal Saline - IV 1,000 mls/hr ASDIR YUE Administration Wide Open Pantoprazole Sodium 80 mg/ 100 mls @ 10 mls/hr 09/05/19 12:15 09/06/19 10:25 Sodium Chloride IVPB 10 mls/hr Q10H YUE Administration 8 MG/HR Octreotide Acetate 200 mcg/ 500 mls @ 20.833 mls/hr 09/06/19 08:30 Octreotide Acetate 1,000 mcg/ IVPB Dextrose ASDIR YUE Protocol Lorazepam 2 mg 09/06/19 11:00 Ativan Injection - IVPUSH Q4H PRN ANXIETY Mupirocin 1 applic 09/05/19 22:00 09/06/19 10:45 Bactroban Ointment (For Decolonization) - NS 09/10/19 21:59 1 applic BID YUE Administration Nystatin 1 applic 09/06/19 10:00 09/06/19 10:28 Mycostatin Cream - TP 1 applic BID YUE Administration ASSESSMENT/PLAN: 48 y/o/m with PMH of EtOH (1 bottle vodka daily), HTN, HLD, DM, presented to the ER with complaints of abdominal distension, LE edema for the past 3 months, as well as melena over the past 2 weeks. #Neuro - AAOx3, monitor - CIWA 2 #Cardio - Anasarca/Ascites does not seem primarily cardiac in origin as per Cardio - Echo on 12/09/18 with normal left/right ventricle function. - Echo 09/06 - EF 70%. Trace mitral, tricuspid, and aortic regurg #Respiratory - saturating well on room air. maintain O2 saturation >90% - Lasix 80mg IV x2 given yesterday. - Lasix 80mg IV once ordered today. Will give additional doses as needed #GI - Anasarca 2/2 cirrhosis/renal failure - Therapeutic paracentesis performed, 9.5L drained, Albumin 50mg administered - Peritoneal Fluid WBC at 179, Neutrophils at 33 - Abdominal USG pre-paracentesis: shows large volume ascites and hepatomegaly and fatty liver - Repeat Stool occult test positive - Protonix 40mg IV daily - Continue Octreotide Drip as per GI - Lactulose 20g daily - EGD possibly tomorrow pending clinical status - Levaquin 500mg Q48h - GI recs appreciated #Heme - LE Doppler: No evidence of dvt - PT 14.8, INR 1.33, PTT 29.3, FFP, Vit K as needed - H&H: Hgb 7.0 -> 6.5 -> 6.7. Transfuse PRBCx2 ordered. One unit given yesterday - Iron 68, TIBC 212, Iron Saturation 32, Unsaturated IBC 144 #Renal - UA: 2+ protein, 1+ ketones, 2+ bili - Renal failure. BUN/Cr at 67/3.3 - Received Bicarb IV, total of 600meq - Lasix 80mg IV ordered. Give additional doses as needed. - Cortes placed, monitor I/O - Patient making urine, will monitor. No indication for HD now #ID - WBC 10.9 -> 9.6 -> 7.6 - Lactic Acid 3.3 -> 1.4 #Prophylaxis - SCDs #FEN - Hyponatremia likely 2/2 hepatorenal syndrome - N/S 1L @ wide open - monitor lytes, replete as needed - NPO after midnight except for meds #Dispo - Continue ICU monitoring Visit type - Emergency Visit Emergency Visit: Yes ED Registration Date: 09/05/19 Care time: The patient presented to the Emergency Department on the above date and was hospitalized for further evaluation of their emergent condition. - New Patient This patient is new to me today: Yes Date on this admission: 09/07/19 - Critical Care Critical Care patient: Yes Total Critical Care Time (in minutes): 36 Critical Care Statement: The care of this patient involved high complexity decision making to prevent further life threatening deterioration of the patient 's condition and/or to evaluate & treat vital organ system(s) failure or risk of failure. ATTENDING PHYSICIAN STATEMENT I saw and evaluated the patient. I reviewed the resident's note and discussed the case with the resident. I agree with the resident's findings and plan as documented. SUBJECTIVE: OBJECTIVE: ASSESSMENT AND PLAN:
--- NOTE | 2019-09-06 14:32 | ECHO ---
Version: 1 Name: MILANA FERNANDO Exam: Adult Echocardiogram Study Date: 09/06/2019, 1:11 PM Age: 48 Years MMode/2D Measurements & Calculations IVSd: 1.12 cm LVIDs: 3.0 cm LVIDd: 5.8 cm LVPWd: 1.10 cm LAV (MOD-bp): 79.6 ml LVOT diam: 2.14 cm Ao root diam: 3.3 cm LA dimension: 3.4 cm Doppler Measurements & Calculations MV E max tray: 93.5 cm/sec Med E/e': 9.5 MV A max tray: 85.3 cm/sec Med Peak E' Tray: 9.8 cm/sec MV E/A: 1.10 Lat E/e': 6.9 Lat Peak E' Tray: 13.6 cm/sec MR max P.0 mmHg Ao max P.2 mmHg CHRIS(I,D): 3.0 cm Ao mean P.2 mmHg LV V1 mean: 108.6 cm/sec Ao V2 max: 213.1 cm/sec LV V1 mean P.4 mmHg TR max tray: 275.5 cm/sec TR max P.4 mmHg Left Ventricle The left ventricular size, thickness and function are normal. Ejection Fraction = 70%. The transmitr al spectral Doppler flow pattern is normal for age. Right Ventricle The right ventricle is normal in size and function. Atria Normal left and right atrial size and function. Mitral Valve The mitral valve is normal in structure and function. There is trace mitral regurgitation. Tricuspid Valve The tricuspid valve is normal in structure and function. There is mild tricuspid regurgitation. Aortic Valve There is mild aortic valve thickening. Trace aortic regurgitation. Pulmonic Valve The pulmonic valve is not well seen, but is grossly normal. Great Vessels The aortic root is normal size. Normal aortic arch, descending and ascending aorta. Pericardium/Pleura There is no pericardial effusion. Summary Statements The left ventricular size, thickness and function are normal Ejection Fraction = 70%. The transmitral spectral Doppler flow pattern is normal for age. The right ventricle is normal in size and function. Normal left and right atrial size and function. The mitral valve is normal in structure and function. There is trace mitral regurgitation. The tricuspid valve is normal in structure and function. There is mild tricuspid regurgitation. There is mild aortic valve thickening. Trace aortic regurgitation. The pulmonic valve is not well seen, but is grossly normal. The aortic root is normal size. Normal aortic arch, descending and ascending aorta There is no pericardial effusion. Elmer Schaefer 09/06/2019, 2:31 PM Ordering Physician: Ezequiel Mcnally Performed By: Sheri Pablo
--- NOTE | 2019-09-06 16:14 | PN.GI ---
GI Progress Note Subjective: No acute events No overt bleeding States that he has rectal bleeding and melena about 2 weeks ago Had about 10L paracentesis yesterday and albumin was supplemented. Total protein and albumin are pending. Not C/W SBP No abdominal pain - Objective Vital Signs: Vital Signs Temperature 97.8 F 09/06/19 14:00 Pulse Rate 100 H 09/06/19 14:00 Respiratory Rate 25 H 09/06/19 14:00 Blood Pressure 111/64 09/06/19 14:00 O2 Sat by Pulse Oximetry (%) 98 09/06/19 07:31 Constitutional: Calm Eyes: No: Sclera Icterus Cardiovascular: Yes: Tachycardia Respiratory: Yes: Diminished (at bases bilaterally) Gastrointestinal Inspection: Yes: Distention. No: Scars ...Auscultate: Yes: Normoactive Bowel Sounds, Other (dressing left side of abdomen that is wet from peritoneal fluid leakage) ...Palpate: Yes: Soft ...Percussion: No: Tympanitic Edema: Yes Edema: LLE: 2+, RLE: 2+ Neurological: Yes: Alert, Oriented (x 3), [employer] Labs: CBC, BMP 09/06/19 05:20 09/06/19 05:20 INR, PTT INR 1.33 (0.82-1.09) H 09/05/19 11:06 Hepatic Panel Total Bilirubin 1.4 mg/dL (0.2-1) H 09/06/19 05:20 AST 44 U/L (15-37) H 09/06/19 05:20 ALT 17 U/L (13-61) 09/06/19 05:20 Alkaline Phosphatase 148 U/L (45-117) H 09/06/19 05:20 Albumin 2.3 g/dl (3.4-5.0) L 09/06/19 05:20 Problem List - Problems (1) Alcoholic cirrhosis Assessment/Plan: Decompensated, with sequelae of ascites / volume overload, mild encephalopathy. Anemic with personal history of rectal bleeding melena a couple of weeks ago. Varices will need to be excluded Had a long talk with Mr. Mike and his , who was present at bedside. I explained that continued alcohol use will expedite his , likely from further complications of his liver disease and that only time will tell how much liver function he can regain (and if his volume status / ascites will improve) being completely abstinent from alcohol. Discussed other potentially life threatening complications of chronic liver disease including but not limited to bleeding, infection, encephalopathy, liver cancer. Volume management per renal given concomitant renal dysfunction. JUSTINE, unclear etiology. Unclear what baseline renal function has been. ? HRS 2, with abnormal UA, ? alternate etiology. For EGD when clinical status permits, possibly for tomorrow. Continue octreotide for now Received ceftriaxone today. Would continue Abx in setting of ? more recent bleeding than Mr. Mike described. (ordered Levaquin 500mg Q 48h) Added Lactulose 20g daily Keep Hgb around 7 Follow-up fluid culture, albumin, total protein Discussed upper endoscopy w/ possible banding with Mr. Mike and his . Discussed potential risks of the procedure like but not limited to bleeding, perforation requiring surgery to repair, infection, sedation medication effects all of which could be potentially life threatening. They have agreed to the procerdure . Timing depending on his overall clinical condition. Possibly tomorrow. NPO after midnight except meds. Code(s): K70.30 - ALCOHOLIC CIRRHOSIS OF LIVER WITHOUT ASCITES
[2019-09-06] MEDS: SODIUM CHLORIDE 1,000 ML IV SCH (17:26)
[2019-09-06] MEDS ORDERED: OCTREOTIDE ACETATE 200 MCG, OCTREOTIDE ACETATE 1,000 MCG in DEXTROSE 5%-WATER - 496 ML IVPB SCH (17:30)
[2019-09-06 17:51] LABS: EPI CELLS 0.9 /HPF (0-5/HPF); HYALINE CASTS 4 /lpf (0-8); URINE APPEARANCE CLEAR; URINE BILIRUBIN NEGATIVE (NEGATIVE); URINE COLOR YELLOW; URINE GLUCOSE (UA) NEGATIVE (NEGATIVE); URINE KETONE NEGATIVE (NEGATIVE); URINE LEUK ESTERASE NEGATIVE (NEGATIVE); URINE NITRITE NEGATIVE (NEGATIVE); URINE PROTEIN NEGATIVE (NEGATIVE); URINE RBC 7 /hpf (0-4); URINE UROBILINOGEN 0.2 mg/dL (0.2-1.0); URINE WBC 1 /hpf (0-5)
[2019-09-06 19:03] LABS: HEMATOCRIT 26.7 % (35.4-49); HEMOGLOBIN 8.9 GM/dL (11.7-16.9); MCH 27.4 pg (25.7-33.7); MCHC 33.3 g/dl (32.0-35.9); MEAN CELL VOLUME 82.2 fl (80-96); MEAN PLT VOLUME 8.3 fl (7.5-11.1); PLATELET COUNT 145 K/MM3 (134-434); RBC 3.25 M/mm3 (4.00-5.60); RDW 18.2 % (11.9-15.9); WHITE BLOOD COUNT 9.5 K/mm3 (4.0-10.0)
[2019-09-06] MEDS: CHLORHEXIDINE GLUCONATE 4% CLEANSER FOR DECOLONIZATION TP SCH (21:48)
[2019-09-07 07:55] LABS: BASO % 0.6 % (0-2.0); EOS % 5.8 % (0-4.5); HEMATOCRIT 25.1 % (35.4-49); HEMOGLOBIN 8.7 GM/dL (11.7-16.9); LYMPH % 8.2 % (8-40); MCH 27.9 pg (25.7-33.7); MCHC 34.6 g/dl (32.0-35.9); MEAN CELL VOLUME 80.6 fl (80-96); MEAN PLT VOLUME 7.9 fl (7.5-11.1); MONO % 9.6 % (3.8-10.2); NEUT % 75.8 % (42.8-82.8); PLATELET COUNT 133 K/MM3 (134-434); RBC 3.12 M/mm3 (4.00-5.60); RDW 17.8 % (11.9-15.9); WHITE BLOOD COUNT 8.8 K/mm3 (4.0-10.0)
[2019-09-07 08:23] LABS: ALBUMIN 2.4 g/dl (3.4-5.0); BILIRUBIN,TOTAL 1.5 mg/dL (0.2-1); BLOOD UREA NITROGEN 56.1 mg/dL (7-18); CALCIUM 8.3 mg/dL (8.5-10.1); CREATININE 1.8 mg/dL (0.55-1.3); MAGNESIUM 1.4 mg/dL (1.8-2.4); POTASSIUM 3.8 mmol/L (3.5-5.1); TOT PROT 5.9 g/dl (6.4-8.2)
--- NOTE | 2019-09-07 09:01 | PN ---
Progress Note, Physician - Current Medication List Current Medications: Active Medications Chlorhexidine Gluconate (Hibiclens For Decolonization -) 1 applic TP HS YUE Last Admin: 09/06/19 21:48 Dose: 1 applic Sodium Chloride (Normal Saline -) 1,000 mls @ 0 mls/hr IV ASDIR YUE Last Admin: 09/06/19 17:26 Dose: Not Given Octreotide Acetate 200 mcg/Octreotide Acetate 1,000 mcg/Dextrose 500 mls @ 20.833 mls/hr IVPB ASDIR YUE; Protocol Last Admin: 09/06/19 12:11 Dose: 20.833 mls/hr Levofloxacin (Levaquin 500 Mg Premixed Ivpb -) 500 mg in 100 mls @ 100 mls/hr IVPB Q48H YUE; Protocol Lactulose (Cephulac (Oral Use)) 20 gm PO DAILY YUE Lorazepam (Ativan Injection -) 2 mg IVPUSH Q4H PRN PRN Reason: ANXIETY Mupirocin (Bactroban Ointment (For Decolonization) -) 1 applic NS BID YUE Stop: 09/10/19 21:59 Last Admin: 09/06/19 21:47 Dose: 1 applic Nystatin (Mycostatin Cream -) 1 applic TP BID YUE Last Admin: 09/06/19 21:48 Dose: 1 applic Pantoprazole Sodium (Protonix Iv) 40 mg IVPUSH DAILY [facility] - Objective Vital Signs: Vital Signs Temperature 98.2 F 09/07/19 06:00 Pulse Rate 93 H 09/07/19 08:00 Respiratory Rate 20 09/07/19 08:00 Blood Pressure 105/69 09/07/19 08:00 O2 Sat by Pulse Oximetry (%) 99 09/07/19 07:42 Cardiovascular: Yes: S1, S2 Respiratory: Yes: Regular, CTA Bilaterally Gastrointestinal: Yes: Normal Bowel Sounds, Soft, Abdomen, Obese, Ascites, Distention Edema: Yes Labs: CBC, BMP 09/07/19 06:15 09/07/19 06:15 INR, PTT INR 1.33 (0.82-1.09) H 09/05/19 11:06 Problem List - Problems (1) Renal failure Assessment/Plan: Improving agudelo and monitor urine output monitor in icu- Renal on board Code(s): N19 - UNSPECIFIED KIDNEY FAILURE (2) Anasarca Assessment/Plan: secondary to cirrhosis and renal failure abdominal sono shows large volume ascites and hepatomegaly and fatty liver venous lower extremity doppler shows no dvt paracentesis done--9800 cc removed Lasix per renal Code(s): R60.1 - GENERALIZED EDEMA (3) Ascites Assessment/Plan: as above Code(s): R18.8 - OTHER ASCITES (4) Rash Assessment/Plan: Derm Code(s): R21 - RASH AND OTHER NONSPECIFIC SKIN ERUPTION (5) Coagulopathy Assessment/Plan: ffp and vitmain K as needed monitor coags Code(s): D68.9 - COAGULATION DEFECT, UNSPECIFIED (6) Symptomatic anemia Assessment/Plan: prbc Given] Egd today gi eval noted protonix drip octreotide drip per gi Code(s): D64.9 - ANEMIA, UNSPECIFIED
[2019-09-07] MEDS: LACTULOSE 20 GM/30 ML UDC (FOR ORAL USE ONLY) PO SCH (10:30)
[2019-09-07] MEDS: PANTOPRAZOLE SODIUM 40 MG VIAL IVPUSH SCH (10:34)
[2019-09-07] MEDS: MUPIROCIN 2% TOPICAL OINTMENT FOR DECOLONIZATION NS SCH ×2 (10:36→21:35)
[2019-09-07 10:55] LABS: INR 1.61 (0.83-1.09); PROTHROMBIN TIME (PATIENT) 19.1 SEC (9.7-13.0)
[2019-09-07] MEDS ORDERED: MAGNESIUM SULF 50% (8.12 MEQ/2 ML-1 GM VIAL) IVPB ONE (12:11)
[2019-09-07] MEDS ORDERED: FUROSEMIDE 20 MG TABLET (FP) PO ONE ×2 (12:14→17:15)
--- NOTE | 2019-09-07 12:14 | PN ---
Progress Note, Physician History of Present Illness: Pt seen and examined at bedside. He is awake and alert. He feels that his breathing is improved. He denies chest pain or palpitations. - Current Medication List Current Medications: Active Medications Chlorhexidine Gluconate (Hibiclens For Decolonization -) 1 applic TP HS YUE Last Admin: 09/06/19 21:48 Dose: 1 applic Sodium Chloride (Normal Saline -) 1,000 mls @ 0 mls/hr IV ASDIR YUE Last Admin: 09/06/19 17:26 Dose: Not Given Octreotide Acetate 200 mcg/Octreotide Acetate 1,000 mcg/Dextrose 500 mls @ 20.833 mls/hr IVPB ASDIR YUE; Protocol Last Admin: 09/06/19 12:11 Dose: 20.833 mls/hr Levofloxacin (Levaquin 500 Mg Premixed Ivpb -) 500 mg in 100 mls @ 100 mls/hr IVPB Q48H YUE; Protocol Lactulose (Cephulac (Oral Use)) 20 gm PO DAILY YUE Last Admin: 09/07/19 10:30 Dose: Not Given Lorazepam (Ativan Injection -) 2 mg IVPUSH Q4H PRN PRN Reason: ANXIETY Magnesium Sulfate (Magnesium Sulfate) 2 gm IVPB ONCE ONE Stop: 09/07/19 12:12 Mupirocin (Bactroban Ointment (For Decolonization) -) 1 applic NS BID [facility] Stop: 09/10/19 21:59 Last Admin: 09/07/19 10:36 Dose: 1 applic Nystatin (Mycostatin Cream -) 1 applic TP BID YUE Last Admin: 09/06/19 21:48 Dose: 1 applic Pantoprazole Sodium (Protonix Iv) 40 mg IVPUSH DAILY [facility] Last Admin: 09/07/19 10:34 Dose: 40 mg - Objective Vital Signs: Vital Signs Temperature 99.3 F 09/07/19 10:00 Pulse Rate 92 H 09/07/19 10:00 Respiratory Rate 20 09/07/19 10:00 Blood Pressure 118/74 09/07/19 10:00 O2 Sat by Pulse Oximetry (%) 99 09/07/19 07:42 Constitutional: Yes: Calm Eyes: Yes: Conjunctiva Clear HENT: Yes: Atraumatic Neck: Yes: Supple Cardiovascular: Yes: S1, S2 Respiratory: Yes: CTA Bilaterally Gastrointestinal: Yes: Soft, Ascites Genitourinary: Yes: Agudelo Present Musculoskeletal: Yes: WNL Edema: Yes Edema: LLE: 3+, RLE: 3+ Neurological: Yes: Oriented Psychiatric: Yes: Oriented Labs: CBC, BMP 09/07/19 06:15 09/07/19 06:15 INR, PTT INR 1.61 (0.83-1.09) H 09/07/19 10:15 Problem List - Problems (1) Ascites Code(s): R18.8 - OTHER ASCITES (2) Anasarca Code(s): R60.1 - GENERALIZED EDEMA (3) Coagulopathy Code(s): D68.9 - COAGULATION DEFECT, UNSPECIFIED (4) Hyponatremia Code(s): E87.1 - HYPO-OSMOLALITY AND HYPONATREMIA (5) Renal failure Code(s): N19 - UNSPECIFIED KIDNEY FAILURE (6) Symptomatic anemia Code(s): D64.9 - ANEMIA, UNSPECIFIED Assessment/Plan Current Medications Generic Name Dose Route Start Last Admin Trade Name Freq PRN Reason Stop Dose Admin Chlorhexidine Gluconate 1 applic 09/05/19 22:00 09/06/19 21:48 Hibiclens For Decolonization - TP 1 applic HS YUE Administration Sodium Chloride 1,000 mls @ 0 mls/hr 09/05/19 12:00 09/06/19 17:26 Normal Saline - IV Not Given ASDIR YUE Wide Open Octreotide Acetate 200 mcg/ 500 mls @ 20.833 mls/hr 09/06/19 08:30 09/06/19 12:11 Octreotide Acetate 1,000 mcg/ IVPB 20.833 mls/hr Dextrose ASDIR YUE Administration Protocol Levofloxacin 500 mg in 100 mls @ 100 mls/hr 09/07/19 16:30 Levaquin 500 Mg Premixed Ivpb - IVPB Q48H YUE Protocol Lactulose 20 gm 09/07/19 10:00 09/07/19 10:30 Cephulac (Oral Use) PO Not Given DAILY YUE Lorazepam 2 mg 09/06/19 11:00 Ativan Injection - IVPUSH Q4H PRN ANXIETY Magnesium Sulfate 2 gm 09/07/19 12:11 Magnesium Sulfate IVPB 09/07/19 12:12 ONCE ONE Mupirocin 1 applic 09/05/19 22:00 09/07/19 10:36 Bactroban Ointment (For Decolonization) - NS 09/10/19 21:59 1 applic BID YUE Administration Nystatin 1 applic 09/06/19 10:00 09/06/19 21:48 Mycostatin Cream - TP 1 applic BID YUE Administration Pantoprazole Sodium 40 mg 09/07/19 10:00 09/07/19 10:34 Protonix Iv IVPUSH 40 mg DAILY YUE Administration Impression 1. JUSTINE 2. hyponatremia hypervolemic 3. etoh abuse 4. fluid overload 5. metabolic overload 6. DM 7. htn 8. hld 9. anemia Plan - cont diuretics - renal function is improved - replace magnesium - GI input appreciated - discussed renal findings with pt and family - arnaud warren/yancy agudelo
--- NOTE | 2019-09-07 12:35 | PN ---
Teaching Attending Note Name of Resident: Darrick Ceballos ATTENDING PHYSICIAN STATEMENT I saw and evaluated the patient. I reviewed the resident's note and discussed the case with the resident. I agree with the resident's findings and plan as documented. SUBJECTIVE: Pt seen and examined in the ICU. Continues to improve, good urine output. For endoscopy today. OBJECTIVE: Vital Signs Period Temp Pulse Resp BP Sys/Foy Pulse Ox Last 24 Hr 97.8 F-99.3 F 92-102 18-25 103-118/56-74 98-99 Intake & Output 09/04/19 09/05/19 09/06/19 09/07/19 23:59 23:59 23:59 23:59 Intake Total 10 1720 248 Output Total 58091 4600 700 Balance -63756 -2880 -452 Weight 136.894 kg 124.483 kg 120.202 kg Gen: NAD at rest Heart: RRR Lung: decreased breath sounds at the bases Abd: softly distended, nontender, some leakage from paracentesis site Ext: + edema CBC, BMP 09/07/19 06:15 09/07/19 06:15 Active Medications Chlorhexidine Gluconate (Hibiclens For Decolonization -) 1 applic TP HS YUE Last Admin: 09/06/19 21:48 Dose: 1 applic Sodium Chloride (Normal Saline -) 1,000 mls @ 0 mls/hr IV ASDIR YUE Last Admin: 09/06/19 17:26 Dose: Not Given Octreotide Acetate 200 mcg/Octreotide Acetate 1,000 mcg/Dextrose 500 mls @ 20.833 mls/hr IVPB ASDIR YUE; Protocol Last Admin: 09/06/19 12:11 Dose: 20.833 mls/hr Levofloxacin (Levaquin 500 Mg Premixed Ivpb -) 500 mg in 100 mls @ 100 mls/hr IVPB Q48H YUE; Protocol Lactulose (Cephulac (Oral Use)) 20 gm PO DAILY YUE Last Admin: 09/07/19 10:30 Dose: Not Given Lorazepam (Ativan Injection -) 2 mg IVPUSH Q4H PRN PRN Reason: ANXIETY Magnesium Oxide (Mag-Ox -) 400 mg PO DAILY YUE Mupirocin (Bactroban Ointment (For Decolonization) -) 1 applic NS BID YUE Stop: 09/10/19 21:59 Last Admin: 09/07/19 10:36 Dose: 1 applic Nystatin (Mycostatin Cream -) 1 applic TP BID [facility] Last Admin: 09/06/19 21:48 Dose: 1 applic Pantoprazole Sodium (Protonix Iv) 40 mg IVPUSH DAILY [facility] Last Admin: 09/07/19 10:34 Dose: 40 mg ASSESSMENT AND PLAN: Massive Ascites s/p Large Volume Paracentesis Acute Kidney Injury Lactic/Metabolic Acidosis GI Bleed Anemia Alcohol Abuse r/o Liver Cirrhosis Hyponatremia HTN DM Hyperlipidemia Morbid Obesity - f/u ascites fluid total protein, albumin, cultures and cytology - monitor H/H - protonix, octreotide - on empiric antibiotics - for endoscopy today - O2 to keep SpO2 >90% - monitor lytes - monitor urine output, creatinine - monitor for withdrawal symptoms - DVT prophylaxis - dispo pending EGD findings
[2019-09-07] MEDS: OCTREOTIDE ACETATE 200 MCG, OCTREOTIDE ACETATE 1,000 MCG in DEXTROSE 5%-WATER - 496 ML IVPB SCH (12:49)
[2019-09-07] MEDS: NYSTATIN 100,000 UNIT/GM TOPICAL CREAM 15 GM TUBE TP SCH ×2 (12:57→21:40)
[2019-09-07 14:10] LABS: BODY FLUID ALBUMIN 0.6 g/dL (Not Estab.)
--- NOTE | 2019-09-07 15:25 | PN ---
Physical Exam: SUBJECTIVE: Patient seen and examined. No acute events overnight. Denies SOB, AB pain, or gross bleeding OBJECTIVE: Vital Signs Period Temp Pulse Resp BP Sys/Foy Pulse Ox Last 24 Hr 98.2 F-99.3 F 92-102 18-23 103-129/56-77 98-99 GENERAL: The patient is awake, alert, and fully oriented, in no acute distress. LUNGS: Breath sounds equal, clear to auscultation bilaterally, no wheezes, no crackles, no accessory muscle use. HEART: Regular rate and rhythm, S1, S2 without murmur, rub or gallop. ABDOMEN: Soft, nontender, distended, normoactive bowel sounds, no guarding, no rebound, no masses. EXTREMITIES: warm, 3+ pitting edema BLE NEUROLOGICAL: AOx3. Normal speech Laboratory Results - last 24 hr 09/05/19 09/05/19 09/06/19 12:05 19:00 17:09 WBC RBC Hgb Hct MCV MCH MCHC RDW Plt Count MPV Absolute Neuts (auto) Neutrophils % Lymphocytes % Monocytes % Eosinophils % Basophils % Nucleated RBC % PT with INR INR Sodium Potassium Chloride Carbon Dioxide Anion Gap BUN Creatinine Est GFR (CKD-EPI)AfAm Est GFR (CKD-EPI)NonAf POC Glucometer Random Glucose Calcium Phosphorus Magnesium Total Bilirubin AST ALT Alkaline Phosphatase Total Protein Albumin Urine Color Yellow Urine Appearance Clear Urine pH 6.0 Ur Specific Eldon 1.007 L Urine Protein Negative Urine Glucose (UA) Negative Urine Ketones Negative Urine Blood 1+ H Urine Nitrite Negative Urine Bilirubin Negative Urine Urobilinogen 0.2 Ur Leukocyte Esterase Negative Urine WBC (Auto) 1 Urine RBC (Auto) 7 Urine Casts (Auto) 4 U Epithel Cells (Auto) 0.9 Urine Bacteria (Auto) 1.0 Fluid Total Protein 1.5 Fluid Albumin 0.6 Blood Type A POSITIVE Antibody Screen Negative Crossmatch See Detail 09/06/19 09/06/19 09/07/19 17:30 18:20 06:15 WBC 9.5 8.8 RBC 3.25 L 3.12 L Hgb 8.9 L 8.7 L Hct 26.7 L D 25.1 L MCV 82.2 80.6 MCH 27.4 27.9 MCHC 33.3 34.6 RDW 18.2 H 17.8 H Plt Count 145 133 L MPV 8.3 7.9 Absolute Neuts (auto) 6.7 Neutrophils % 75.8 Lymphocytes % 8.2 D Monocytes % 9.6 Eosinophils % 5.8 H D Basophils % 0.6 Nucleated RBC % 0 PT with INR INR Sodium Potassium Chloride Carbon Dioxide Anion Gap BUN Creatinine Est GFR (CKD-EPI)AfAm Est GFR (CKD-EPI)NonAf POC Glucometer 144 Random Glucose Calcium Phosphorus Magnesium Total Bilirubin AST ALT Alkaline Phosphatase Total Protein Albumin Urine Color Urine Appearance Urine pH Ur Specific Eldon Urine Protein Urine Glucose (UA) Urine Ketones Urine Blood Urine Nitrite Urine Bilirubin Urine Urobilinogen Ur Leukocyte Esterase Urine WBC (Auto) Urine RBC (Auto) Urine Casts (Auto) U Epithel Cells (Auto) Urine Bacteria (Auto) Fluid Total Protein Fluid Albumin Blood Type Antibody Screen Crossmatch 09/07/19 09/07/19 06:15 10:15 WBC RBC Hgb Hct MCV MCH MCHC RDW Plt Count MPV Absolute Neuts (auto) Neutrophils % Lymphocytes % Monocytes % Eosinophils % Basophils % Nucleated RBC % PT with INR 19.10 H INR 1.61 H Sodium 137 Potassium 3.8 Chloride 103 Carbon Dioxide 25 Anion Gap 9 BUN 56.1 H Creatinine 1.8 H Est GFR (CKD-EPI)AfAm 50.10 Est GFR (CKD-EPI)NonAf 43.23 POC Glucometer Random Glucose 135 H Calcium 8.3 L Phosphorus 3.0 Magnesium 1.4 L Total Bilirubin 1.5 H AST 41 H ALT 16 Alkaline Phosphatase 151 H Total Protein 5.9 L Albumin 2.4 L Urine Color Urine Appearance Urine pH Ur Specific Eldon Urine Protein Urine Glucose (UA) Urine Ketones Urine Blood Urine Nitrite Urine Bilirubin Urine Urobilinogen Ur Leukocyte Esterase Urine WBC (Auto) Urine RBC (Auto) Urine Casts (Auto) U Epithel Cells (Auto) Urine Bacteria (Auto) Fluid Total Protein Fluid Albumin Blood Type Antibody Screen Crossmatch Active Medications Generic Name Dose Route Start Last Admin Trade Name Freq PRN Reason Stop Dose Admin Chlorhexidine Gluconate 1 applic 09/05/19 22:00 09/06/19 21:48 Hibiclens For Decolonization - TP 1 applic HS YUE Administration Sodium Chloride 1,000 mls @ 0 mls/hr 09/05/19 12:00 09/06/19 17:26 Normal Saline - IV Not Given ASDIR YUE Wide Open Octreotide Acetate 200 mcg/ 500 mls @ 20.833 mls/hr 09/06/19 08:30 09/07/19 12:49 Octreotide Acetate 1,000 mcg/ IVPB 20.833 mls/hr Dextrose ASDIR YUE Administration Protocol Levofloxacin 500 mg in 100 mls @ 100 mls/hr 09/07/19 16:30 Levaquin 500 Mg Premixed Ivpb - IVPB Q48H YUE Protocol Lactulose 20 gm 09/07/19 10:00 09/07/19 10:30 Cephulac (Oral Use) PO Not Given DAILY [facility] Lorazepam 2 mg 09/06/19 11:00 Ativan Injection - IVPUSH Q4H PRN ANXIETY Magnesium Oxide 400 mg 09/08/19 10:00 Mag-Ox - PO DAILY YUE Mupirocin 1 applic 09/05/19 22:00 09/07/19 10:36 Bactroban Ointment (For Decolonization) - NS 09/10/19 21:59 1 applic BID YUE Administration Nystatin 1 applic 09/06/19 10:00 09/07/19 12:57 Mycostatin Cream - TP Not Given BID YUE Pantoprazole Sodium 40 mg 09/07/19 10:00 09/07/19 10:34 Protonix Iv IVPUSH 40 mg DAILY YUE Administration ASSESSMENT/PLAN: 48 y/o/m with PMH of EtOH (1 bottle vodka daily), HTN, HLD, DM, presented for melena, worsening abdominal distension, BLE edema d/t hepatorenal failure #Neuro - hx EtOH abuse - AOx3, monitor - CIWA protocol for withdrawal #Cardio - Fluid overload not primarily cardiac in origin as per Cardio - Echo 09/06 - EF 70%. Trace mitral, tricuspid, and aortic regurg - given 60 lasix today for fluid overload - holding home HTN meds d/t hypotension - holding ASA d/t GI bleeding - appreciate cards recs #Respiratory - breathing RA, O2sat wnl - nighttime Bipap #GI - cirrhosis - Abdominal USG pre-paracentesis 09/06 : showed large volume ascites and hepatomegaly and fatty liver - Therapeutic paracentesis 09/06 : 9.5L drained, given 50mg Albumin 50mg - + FOBT - Continue octreotide, lactulose - EGD today - NPO - f/u ascites fluid studies, hepatitis screen, renal studies - GI ppx - GI recs appreciated #Heme - anemia, thrombocytopenia - anemia Hgb 8.9 to 8.7. Given 1u pRBC 09/06 - thrombocytopenia plt 133 - elevated INR 1.6, FFP / vit K as needed - LE Doppler: No evidence of DVT #Renal - JUSTINE - downtrending Cr 3.3 to 1.8 - agudelo placed - I/O #ID - afebrile, WBC wnl - continue levaquin, nystatin PRN #PPX - SCDs - protonix #FEN - stopped fluids - hypoMg - repleted - NPO #Dispo - ICU Visit type - Emergency Visit Emergency Visit: Yes ED Registration Date: 09/05/19 Care time: The patient presented to the Emergency Department on the above date and was hospitalized for further evaluation of their emergent condition. - New Patient This patient is new to me today: Yes Date on this admission: 09/07/19 - Critical Care Critical Care patient: Yes Total Critical Care Time (in minutes): 39 Critical Care Statement: The care of this patient involved high complexity decision making to prevent further life threatening deterioration of the patient 's condition and/or to evaluate & treat vital organ system(s) failure or risk of failure. ATTENDING PHYSICIAN STATEMENT I saw and evaluated the patient. I reviewed the resident's note and discussed the case with the resident. I agree with the resident's findings and plan as documented. SUBJECTIVE: OBJECTIVE: ASSESSMENT AND PLAN:
--- NOTE | 2019-09-07 18:09 | PN ---
Progress Note (short form) - Note Progress Note: Brief GI note EGD performed today revealing small esophageal varices, no high risk stigmata, gastropathy and clean based duodenal bulb ulcer. Gastric biopsies taken r/o H pylori. See scanned report for details. Recommendations: -Clear liquid diet as tolerated -Discontinue octreotide, could consider starting nadolol 40mg daily if no contraindication in view of small varices seen. -PPI daily -Follow up pathology results, treat if H pylori positive -Avoid NSAIDs -If overt bleeding with drop in Hb please notify GI for repeat EGD with possible therapeutic intent -GI to continue to follow Discussed with pts after the procedure Discussed with MICU team
[2019-09-07] MEDS: SODIUM CHLORIDE 1,000 ML IV SCH (21:40)
[2019-09-07] MEDS: CHLORHEXIDINE GLUCONATE 4% CLEANSER FOR DECOLONIZATION TP SCH (21:40)
[2019-09-08] MEDS ORDERED: SODIUM CHLORIDE FOR INHALATION 3 ML VIAL.NEB IH PRN (06:37)
[2019-09-08 07:23] LABS: BASO % 0.7 % (0-2.0); EOS % 7.5 % (0-4.5); HEMATOCRIT 27.5 % (35.4-49); LYMPH % 6.9 % (8-40); MCH 27.2 pg (25.7-33.7); MCHC 32.7 g/dl (32.0-35.9); MEAN CELL VOLUME 83.3 fl (80-96); MEAN PLT VOLUME 8.2 fl (7.5-11.1); MONO % 11.4 % (3.8-10.2); NEUT % 73.5 % (42.8-82.8); PLATELET COUNT 143 K/MM3 (134-434); RBC 3.31 M/mm3 (4.00-5.60); RDW 18.1 % (11.9-15.9); WHITE BLOOD COUNT 8.5 K/mm3 (4.0-10.0)
[2019-09-08 07:47] LABS: ALBUMIN 2.4 g/dl (3.4-5.0); BILIRUBIN,TOTAL 1.3 mg/dL (0.2-1); BLOOD UREA NITROGEN 41.3 mg/dL (7-18); CALCIUM 8.2 mg/dL (8.5-10.1); CREATININE 1.3 mg/dL (0.55-1.3); MAGNESIUM 1.4 mg/dL (1.8-2.4); PHOSPHOROUS 2.5 mg/dL (2.5-4.9); POTASSIUM 3.4 mmol/L (3.5-5.1); TOT PROT 6.2 g/dl (6.4-8.2)
[2019-09-08] MEDS ORDERED: POTASSIUM CHLORIDE TABS 20 MEQ TABLET.ER (FP) PO ONE ×2 (08:15→09:45)
[2019-09-08] MEDS ORDERED: SODIUM CHLORIDE 1,000 ML IV SCH (09:12)
[2019-09-08] MEDS: MUPIROCIN 2% TOPICAL OINTMENT FOR DECOLONIZATION NS SCH (09:55)
[2019-09-08] MEDS: LACTULOSE 20 GM/30 ML UDC (FOR ORAL USE ONLY) PO SCH (09:55)
[2019-09-08] MEDS: PANTOPRAZOLE SODIUM 40 MG VIAL IVPUSH SCH (09:55)
[2019-09-08] MEDS: NYSTATIN 100,000 UNIT/GM TOPICAL CREAM 15 GM TUBE TP SCH (09:56)
[2019-09-08] MEDS ORDERED: MAGNESIUM OXIDE 400 MG TABLET (FP) PO SCH (10:00)
--- NOTE | 2019-09-08 11:50 | PN ---
Teaching Attending Note Name of Resident: Cat Maynard ATTENDING PHYSICIAN STATEMENT I saw and evaluated the patient. I reviewed the resident's note and discussed the case with the resident. I agree with the resident's findings and plan as documented. SUBJECTIVE: Pt seen and examined in the ICU. s/p EGD showing small esophageal varices, gastropathy and clean based duodenal ulcer. OBJECTIVE: Vital Signs Period Temp Pulse Resp BP Sys/Foy Pulse Ox Last 24 Hr 97.3 F-98.7 F 84-102 14-23 98-129/50-77 93-100 Intake & Output 09/05/19 09/06/19 09/07/19 09/08/19 23:59 23:59 23:59 23:59 Intake Total 10 1720 1699 Output Total 99954 4600 1200 200 Balance -44045 -2880 499 -200 Weight 136.894 kg 124.483 kg 120.202 kg 115.723 kg Gen: NAD at rest Heart: RRR Lung: decreased breath sounds at the bases Abd: softly distended, +leak from paracentesis site Ext: + less edema CBC, BMP 09/08/19 05:30 09/08/19 05:30 Active Medications Chlorhexidine Gluconate (Hibiclens For Decolonization -) 1 applic TP HS YUE Last Admin: 09/07/19 21:40 Dose: 1 applic Furosemide (Lasix Injection -) 60 mg IVPUSH ONCE ONE Stop: 09/08/19 12:01 Levofloxacin (Levaquin 500 Mg Premixed Ivpb -) 500 mg in 100 mls @ 100 mls/hr IVPB Q48H YUE; Protocol Last Admin: 09/07/19 16:34 Dose: 100 mls/hr Lactulose (Cephulac (Oral Use)) 20 gm PO DAILY YUE Last Admin: 09/08/19 09:55 Dose: 20 gm Lorazepam (Ativan Injection -) 2 mg IVPUSH Q4H PRN PRN Reason: ANXIETY Magnesium Oxide (Mag-Ox -) 400 mg PO DAILY YUE Last Admin: 09/08/19 09:55 Dose: 400 mg Mupirocin (Bactroban Ointment (For Decolonization) -) 1 applic NS BID YUE Stop: 09/10/19 21:59 Last Admin: 09/08/19 09:55 Dose: 1 applic Nystatin (Mycostatin Cream -) 1 applic TP BID [facility] Last Admin: 09/08/19 09:56 Dose: Not Given Pantoprazole Sodium (Protonix Iv) 40 mg IVPUSH DAILY [facility] Last Admin: 09/08/19 09:55 Dose: 40 mg Sodium Chloride (Normal Saline For Inhalation -) 3 ml IH Q6H PRN PRN Reason: dry mouth ASSESSMENT AND PLAN: Massive Ascites s/p Large Volume Paracentesis Acute Kidney Injury Lactic/Metabolic Acidosis GI Bleed Anemia Alcohol Abuse r/o Liver Cirrhosis Hyponatremia improved HTN DM Hyperlipidemia Morbid Obesity - monitor H/H - protonix - start nadolol - on empiric antibiotics - O2 to keep SpO2 >90% - monitor lytes - monitor urine output, creatinine - monitor for withdrawal symptoms - suture abdominal site - rehab/PT - PO per GI - DVT prophylaxis - can monitor on floor
[2019-09-08] MEDS ORDERED: FUROSEMIDE 40 MG/4 ML INJECTABLE VIAL IVPUSH ONE (12:00)
--- NOTE | 2019-09-08 13:02 | PN ---
Progress Note, Physician Chief Complaint: patient seen and examined s/p paracentesis and s/p EGD - Current Medication List Current Medications: Active Medications Chlorhexidine Gluconate (Hibiclens For Decolonization -) 1 applic TP HS [facility] Last Admin: 09/07/19 21:40 Dose: 1 applic Levofloxacin (Levaquin 500 Mg Premixed Ivpb -) 500 mg in 100 mls @ 100 mls/hr IVPB Q48H YUE; Protocol Last Admin: 09/07/19 16:34 Dose: 100 mls/hr Lactulose (Cephulac (Oral Use)) 20 gm PO DAILY [facility] Last Admin: 09/08/19 09:55 Dose: 20 gm Lorazepam (Ativan Injection -) 2 mg IVPUSH Q4H PRN PRN Reason: ANXIETY Magnesium Oxide (Mag-Ox -) 400 mg PO DAILY [facility] Last Admin: 09/08/19 09:55 Dose: 400 mg Mupirocin (Bactroban Ointment (For Decolonization) -) 1 applic NS BID YUE Stop: 09/10/19 21:59 Last Admin: 09/08/19 09:55 Dose: 1 applic Nadolol (Corgard -) 40 mg PO DAILY [facility] Nystatin (Mycostatin Cream -) 1 applic TP BID [facility] Last Admin: 09/08/19 09:56 Dose: Not Given Pantoprazole Sodium (Protonix Iv) 40 mg IVPUSH DAILY [facility] Last Admin: 09/08/19 09:55 Dose: 40 mg Sodium Chloride (Normal Saline For Inhalation -) 3 ml IH Q6H PRN PRN Reason: dry mouth - Objective Vital Signs: Vital Signs Temperature 98.1 F 09/08/19 10:00 Pulse Rate 91 H 09/08/19 12:00 Respiratory Rate 18 09/08/19 12:00 Blood Pressure 100/69 09/08/19 12:00 O2 Sat by Pulse Oximetry (%) 99 09/08/19 09:00 Constitutional: Yes: Calm Cardiovascular: Yes: Regular Rate and Rhythm, S1, S2 Respiratory: Yes: Diminished Gastrointestinal: Yes: Ascites, Distention Edema: Yes Labs: CBC, BMP 09/08/19 05:30 09/08/19 05:30 INR, PTT INR 1.61 (0.83-1.09) H 09/07/19 10:15 Problem List - Problems (1) Anasarca Assessment/Plan: s/p large volume paracentesis with lasix and albumin Code(s): R60.1 - GENERALIZED EDEMA (2) Hyponatremia Assessment/Plan: improved after diuresis hypervolemic hyponatremia Code(s): E87.1 - HYPO-OSMOLALITY AND HYPONATREMIA (3) Renal failure Assessment/Plan: iv duiresis Code(s): N19 - UNSPECIFIED KIDNEY FAILURE (4) Symptomatic anemia Assessment/Plan: h/h improved s.p egd clean bases duodenal ulcers ,esophagela varies and gastropathy Code(s): D64.9 - ANEMIA, UNSPECIFIED (5) Coagulopathy Assessment/Plan: ffp and vitmain K as needed monitor coags nadolol started Code(s): D68.9 - COAGULATION DEFECT, UNSPECIFIED (6) Hypokalemia Assessment/Plan: supplemented and magesium repleted as well Code(s): E87.6 - HYPOKALEMIA
[2019-09-08] MEDS ORDERED: PT OWN MED DRAWER 7, Y5N ONE (13:10)
[2019-09-08] MEDS ORDERED: MAGNESIUM SULF 50% (8.12 MEQ/2 ML-1 GM VIAL) IVPB ONE (13:15)
[2019-09-08] MEDS ORDERED: chlordiazePOXIDE HCL 25 MG CAPSULE PO PRN (13:33)
--- NOTE | 2019-09-08 14:13 | PN ---
Physical Exam: SUBJECTIVE: Patient seen and examined this morning. States that he is feeling better. Denies chest or abd pain. Complains of a mild intermittent nosebleed. OBJECTIVE: Vital Signs Period Temp Pulse Resp BP Sys/Foy Pulse Ox Last 24 Hr 97.3 F-98.3 F 84-102 14-23 98-122/50-77 93-100 GENERAL: The patient is awake, alert, and fully oriented, in no acute distress. HEAD: Normal with no signs of trauma. LUNGS: Breath sounds equal, clear to auscultation bilaterally, no wheezes, no crackles, no accessory muscle use. HEART: Regular rate and rhythm, S1, S2 without murmur, rub or gallop. ABDOMEN: Soft, non tender. Distended. normoactive bowel sounds EXTREMITIES: warm, 2+ pitting edema bilateral LE NEUROLOGICAL: Normal speech, gait not observed. AAOx3 Laboratory Results - last 24 hr 09/07/19 09/07/19 09/08/19 06:15 06:15 05:30 WBC 8.5 RBC 3.31 L Hgb 9.0 L Hct 27.5 L MCV 83.3 MCH 27.2 MCHC 32.7 RDW 18.1 H Plt Count 143 MPV 8.2 Absolute Neuts (auto) 6.2 Neutrophils % 73.5 Lymphocytes % 6.9 L Monocytes % 11.4 H Eosinophils % 7.5 H Basophils % 0.7 Nucleated RBC % 0 Sodium Potassium Chloride Carbon Dioxide Anion Gap BUN Creatinine Est GFR (CKD-EPI)AfAm Est GFR (CKD-EPI)NonAf Random Glucose Calcium Phosphorus Magnesium Total Bilirubin AST ALT Alkaline Phosphatase Total Protein Albumin Double Strand DNA Ab <1 Hep C Ab Diagnostic <0.1 09/08/19 05:30 WBC RBC Hgb Hct MCV MCH MCHC RDW Plt Count MPV Absolute Neuts (auto) Neutrophils % Lymphocytes % Monocytes % Eosinophils % Basophils % Nucleated RBC % Sodium 141 Potassium 3.4 L Chloride 104 Carbon Dioxide 27 Anion Gap 10 BUN 41.3 H Creatinine 1.3 Est GFR (CKD-EPI)AfAm 74.26 Est GFR (CKD-EPI)NonAf 64.07 Random Glucose 111 H Calcium 8.2 L Phosphorus 2.5 Magnesium 1.4 L Total Bilirubin 1.3 H AST 38 H ALT 18 Alkaline Phosphatase 144 H Total Protein 6.2 L Albumin 2.4 L Double Strand DNA Ab Hep C Ab Diagnostic Active Medications Generic Name Dose Route Start Last Admin Trade Name Freq PRN Reason Stop Dose Admin Chlordiazepoxide HCl 25 mg 09/08/19 13:33 Librium - PO Q6H PRN WITHDRAWAL(CONT SUBST) Chlorhexidine Gluconate 1 applic 09/05/19 22:00 09/07/19 21:40 Hibiclens For Decolonization - TP 1 applic HS YUE Administration Levofloxacin 500 mg in 100 mls @ 100 mls/hr 09/07/19 16:30 09/07/19 16:34 Levaquin 500 Mg Premixed Ivpb - IVPB 100 mls/hr Q48H YUE Administration Protocol Lactulose 20 gm 09/07/19 10:00 09/08/19 09:55 Cephulac (Oral Use) PO 20 gm DAILY YUE Administration Lorazepam 2 mg 09/06/19 11:00 Ativan Injection - IVPUSH Q4H PRN ANXIETY Magnesium Oxide 400 mg 09/08/19 10:00 09/08/19 09:55 Mag-Ox - PO 400 mg DAILY YUE Administration Mupirocin 1 applic 09/05/19 22:00 09/08/19 09:55 Bactroban Ointment (For Decolonization) - NS 09/10/19 21:59 1 applic BID YUE Administration Nadolol 40 mg 09/08/19 12:00 Corgard - PO DAILY YUE Nystatin 1 applic 09/06/19 10:00 09/08/19 09:56 Mycostatin Cream - TP Not Given BID YUE Pantoprazole Sodium 40 mg 09/07/19 10:00 09/08/19 09:55 Protonix Iv IVPUSH 40 mg DAILY YUE Administration Sodium Chloride 3 ml 09/08/19 06:37 Normal Saline For Inhalation - IH Q6H PRN dry mouth ASSESSMENT/PLAN: 48 y/o/m with PMH of EtOH (1 bottle vodka daily), HTN, HLD, DM, presented for melena, worsening abdominal distension, BLE edema d/t hepatorenal failure #Neuro - hx EtOH abuse - AOx3, monitor - CIWA protocol for withdrawal #Cardio - Fluid overload not primarily cardiac in origin as per Cardio - Echo 09/06 - EF 70%. Trace mitral, tricuspid, and aortic regurg - lasix 60mg given today for fluid overload - holding home HTN meds d/t hypotension. restart when appropriate - holding ASA d/t GI bleeding - appreciate cards recs #Respiratory - breathing RA, maintain O2sat >90% - nighttime BiPAP #GI - cirrhosis - Abdominal USG pre-paracentesis 09/06 : showed large volume ascites and hepatomegaly and fatty liver - Therapeutic paracentesis 09/06 : 9.5L drained, given 50mg Albumin 50mg - + FOBT - Continue lactulose - Stop Octreotide - Start Nadolol 40mg QD - EGD 09/07: small esophageal varices, no high risk stigmata, gastropathy and clean based duodenal bulb ulcer. Gastric biopsies taken r/o H pylori. - GI ppx - GI recs appreciated #Heme - Hbg/Hct 07/22.5 - thrombocytopenia improving - elevated INR 1.61, FFP / vit K as needed - LE Doppler: No evidence of DVT #Renal - JUSTINE - downtrending Cr 3.3 -> 1.8 -> 1.3 - agudelo placed - I/O - Spironolactone 25mg PO BID started #ID - afebrile, WBC 8.5 - continue levaquin as per GI - Nystatin #PPX - SCDs - protonix #FEN - stopped fluids - hypoMg - repleted - clear liquid diet #Dispo - Stable for transfer to Med/Surg Visit type - Emergency Visit Emergency Visit: Yes ED Registration Date: 09/05/19 Care time: The patient presented to the Emergency Department on the above date and was hospitalized for further evaluation of their emergent condition. - New Patient This patient is new to me today: No - Critical Care Critical Care patient: Yes Total Critical Care Time (in minutes): 36 Critical Care Statement: The care of this patient involved high complexity decision making to prevent further life threatening deterioration of the patient 's condition and/or to evaluate & treat vital organ system(s) failure or risk of failure. ATTENDING PHYSICIAN STATEMENT I saw and evaluated the patient. I reviewed the resident's note and discussed the case with the resident. I agree with the resident's findings and plan as documented. SUBJECTIVE: OBJECTIVE: ASSESSMENT AND PLAN:
--- NOTE | 2019-09-08 14:21 | PN ---
Progress Note, Physician History of Present Illness: Pt seen and examined at bedside. He is awake and alert. He denies shortness of breath. He feels that his ascites is worsening. - Current Medication List Current Medications: Active Medications Chlordiazepoxide HCl (Librium -) 25 mg PO Q6H PRN PRN Reason: WITHDRAWAL(CONT SUBST) Chlorhexidine Gluconate (Hibiclens For Decolonization -) 1 applic TP HS [facility] Last Admin: 09/07/19 21:40 Dose: 1 applic Levofloxacin (Levaquin 500 Mg Premixed Ivpb -) 500 mg in 100 mls @ 100 mls/hr IVPB Q48H YUE; Protocol Last Admin: 09/07/19 16:34 Dose: 100 mls/hr Lactulose (Cephulac (Oral Use)) 20 gm PO DAILY [facility] Last Admin: 09/08/19 09:55 Dose: 20 gm Lorazepam (Ativan Injection -) 2 mg IVPUSH Q4H PRN PRN Reason: ANXIETY Magnesium Oxide (Mag-Ox -) 400 mg PO DAILY [facility] Last Admin: 09/08/19 09:55 Dose: 400 mg Mupirocin (Bactroban Ointment (For Decolonization) -) 1 applic NS BID [facility] Stop: 09/10/19 21:59 Last Admin: 09/08/19 09:55 Dose: 1 applic Nadolol (Corgard -) 40 mg PO DAILY [facility] Nystatin (Mycostatin Cream -) 1 applic TP BID [facility] Last Admin: 09/08/19 09:56 Dose: Not Given Pantoprazole Sodium (Protonix Iv) 40 mg IVPUSH DAILY [facility] Last Admin: 09/08/19 09:55 Dose: 40 mg Sodium Chloride (Normal Saline For Inhalation -) 3 ml IH Q6H PRN PRN Reason: dry mouth - Objective Vital Signs: Vital Signs Temperature 98.1 F 09/08/19 10:00 Pulse Rate 91 H 09/08/19 12:00 Respiratory Rate 18 09/08/19 12:00 Blood Pressure 100/69 09/08/19 12:00 O2 Sat by Pulse Oximetry (%) 99 09/08/19 09:00 Constitutional: Yes: Calm Eyes: Yes: Conjunctiva Clear HENT: Yes: Atraumatic Neck: Yes: Supple Cardiovascular: Yes: S1, S2 Respiratory: Yes: CTA Bilaterally Gastrointestinal: Yes: Soft, Ascites Genitourinary: Yes: WNL Musculoskeletal: Yes: WNL Edema: Yes Edema: LLE: 2+, RLE: 2+ Neurological: Yes: Oriented Psychiatric: Yes: Oriented Labs: CBC, BMP 09/08/19 05:30 09/08/19 05:30 INR, PTT INR 1.61 (0.83-1.09) H 09/07/19 10:15 Problem List - Problems (1) Ascites Code(s): R18.8 - OTHER ASCITES (2) Anasarca Code(s): R60.1 - GENERALIZED EDEMA (3) Coagulopathy Code(s): D68.9 - COAGULATION DEFECT, UNSPECIFIED (4) Hyponatremia Code(s): E87.1 - HYPO-OSMOLALITY AND HYPONATREMIA (5) Renal failure Code(s): N19 - UNSPECIFIED KIDNEY FAILURE (6) Symptomatic anemia Code(s): D64.9 - ANEMIA, UNSPECIFIED Assessment/Plan Current Medications Generic Name Dose Route Start Last Admin Trade Name Freq PRN Reason Stop Dose Admin Chlordiazepoxide HCl 25 mg 09/08/19 13:33 Librium - PO Q6H PRN WITHDRAWAL(CONT SUBST) Chlorhexidine Gluconate 1 applic 09/05/19 22:00 09/07/19 21:40 Hibiclens For Decolonization - TP 1 applic HS YUE Administration Levofloxacin 500 mg in 100 mls @ 100 mls/hr 09/07/19 16:30 09/07/19 16:34 Levaquin 500 Mg Premixed Ivpb - IVPB 100 mls/hr Q48H YUE Administration Protocol Lactulose 20 gm 09/07/19 10:00 09/08/19 09:55 Cephulac (Oral Use) PO 20 gm DAILY YUE Administration Lorazepam 2 mg 09/06/19 11:00 Ativan Injection - IVPUSH Q4H PRN ANXIETY Magnesium Oxide 400 mg 09/08/19 10:00 09/08/19 09:55 Mag-Ox - PO 400 mg DAILY YUE Administration Mupirocin 1 applic 09/05/19 22:00 09/08/19 09:55 Bactroban Ointment (For Decolonization) - NS 09/10/19 21:59 1 applic BID YUE Administration Nadolol 40 mg 09/08/19 12:00 Corgard - PO DAILY YUE Nystatin 1 applic 09/06/19 10:00 09/08/19 09:56 Mycostatin Cream - TP Not Given BID [facility] Pantoprazole Sodium 40 mg 09/07/19 10:00 09/08/19 09:55 Protonix Iv IVPUSH 40 mg DAILY YUE Administration Sodium Chloride 3 ml 09/08/19 06:37 Normal Saline For Inhalation - IH Q6H PRN dry mouth Impression 1. JUSTINE 2. hyponatremia hypervolemic 3. etoh abuse 4. fluid overload 5. metabolic overload 6. DM 7. htn 8. hld 9. anemia Plan - renal function is improving - start aldactone - replace potassium - cont lasix - discussed with GI - discussed with family - replace mag - sodium improved
[2019-09-08] MEDS ORDERED: LORazepam 2 MG/ML SDV VIAL IVPUSH PRN (14:54)
[2019-09-08] MEDS: SPIRONOLACTONE 25 MG TABLET (FP) PO SCH ×2 (15:40→21:15)
[2019-09-08] MEDS: NADOLOL 40 MG TABLET (FP) PO SCH (15:40)
[2019-09-08] MEDS: FUROSEMIDE 40 MG TABLET (FP) PO SCH (15:41)
[2019-09-08] MEDS: MAGNESIUM OXIDE 400 MG TABLET (FP) PO SCH (21:16)
[2019-09-09 01:08] LABS: HEP B CORE AB, TOT Negative (Negative)
[2019-09-09] MEDS: NYSTATIN 100,000 UNIT/GM TOPICAL CREAM 15 GM TUBE TP SCH ×3 (02:46→22:10)
[2019-09-09 07:36] LABS: BASO % 0.9 % (0-2.0); EOS % 8.2 % (0-4.5); HEMATOCRIT 25.7 % (35.4-49); HEMOGLOBIN 8.6 GM/dL (11.7-16.9); LYMPH % 8.9 % (8-40); MCH 27.5 pg (25.7-33.7); MCHC 33.3 g/dl (32.0-35.9); MEAN CELL VOLUME 82.8 fl (80-96); PLATELET COUNT 127 K/MM3 (134-434); RBC 3.11 M/mm3 (4.00-5.60); RDW 19.3 % (11.9-15.9)
[2019-09-09 08:03] LABS: ALBUMIN 2.3 g/dl (3.4-5.0); BILIRUBIN,TOTAL 1.2 mg/dL (0.2-1); BLOOD UREA NITROGEN 29.6 mg/dL (7-18); MAGNESIUM 1.2 mg/dL (1.8-2.4); PHOSPHOROUS 2.9 mg/dL (2.5-4.9); POTASSIUM 3.6 mmol/L (3.5-5.1); TOT PROT 5.8 g/dl (6.4-8.2)
[2019-09-09] MEDS ORDERED: PT OWN MED DRAWER 7, Y5N ONE (08:36)
[2019-09-09] MEDS: MAGNESIUM OXIDE 400 MG TABLET (FP) PO SCH ×2 (09:04→22:08)
[2019-09-09] MEDS: LACTULOSE 20 GM/30 ML UDC (FOR ORAL USE ONLY) PO SCH (09:04)
[2019-09-09] MEDS: SPIRONOLACTONE 25 MG TABLET (FP) PO SCH ×2 (09:04→22:08)
[2019-09-09] MEDS: FUROSEMIDE 40 MG TABLET (FP) PO SCH (09:04)
[2019-09-09] MEDS ORDERED: MAGNESIUM SULF 50% (8.12 MEQ/2 ML-1 GM VIAL) IVPB ONE ×2 (09:04→10:15)
[2019-09-09] MEDS: NADOLOL 40 MG TABLET (FP) PO SCH (09:05)
[2019-09-09] MEDS ORDERED: PANTOPRAZOLE SODIUM 40 MG VIAL IVPUSH SCH (10:00)
[2019-09-09 11:10] LABS: ANTIGLOMERULAR BASEMENT MEN.AB 4 units (0-20)
--- NOTE | 2019-09-09 11:14 | PN ---
Progress Note, Physician Chief Complaint: Anasarca Renal Failure History of Present Illness: Previous notes and events reviewed awake and alert NAD renal function improving and showing downtrend BC and UC negative denies chest pain or SOB episode of epistaxis noted, pressure to nasal bridge and ice pack applied walked with PT 50ft - Current Medication List Current Medications: Active Medications Chlordiazepoxide HCl (Librium -) 25 mg PO Q6H PRN PRN Reason: WITHDRAWAL(CONT SUBST) Last Admin: 09/09/19 09:15 Dose: 25 mg Furosemide (Lasix -) 40 mg PO DAILY [facility] Last Admin: 09/09/19 09:04 Dose: 40 mg Levofloxacin (Levaquin 500 Mg Premixed Ivpb -) 500 mg in 100 mls @ 100 mls/hr IVPB Q48H [facility]; Protocol Lactulose (Cephulac (Oral Use)) 20 gm PO DAILY [facility] Last Admin: 09/09/19 09:04 Dose: 20 gm Lorazepam (Ativan Injection -) 2 mg IVPUSH Q4H PRN PRN Reason: ANXIETY Magnesium Oxide (Mag-Ox -) 400 mg PO BID [facility] Last Admin: 09/09/19 09:04 Dose: 400 mg Nadolol (Corgard -) 40 mg PO DAILY [facility] Last Admin: 09/09/19 09:05 Dose: 40 mg Nystatin (Mycostatin Cream -) 1 applic TP BID [facility] Last Admin: 09/09/19 09:05 Dose: 1 applic Pantoprazole Sodium (Protonix Iv) 40 mg IVPUSH DAILY [facility] Last Admin: 09/09/19 09:04 Dose: 40 mg Sodium Chloride (Normal Saline For Inhalation -) 3 ml IH Q6H PRN PRN Reason: dry mouth Spironolactone (Aldactone -) 25 mg PO BID [facility] Last Admin: 09/09/19 09:04 Dose: 25 mg - Objective Vital Signs: Vital Signs Temperature 98.6 F 09/09/19 10:00 Pulse Rate 90 09/09/19 10:00 Respiratory Rate 22 H 09/09/19 10:00 Blood Pressure 139/38 L 09/09/19 10:00 O2 Sat by Pulse Oximetry (%) 100 09/09/19 09:00 Constitutional: Yes: No Distress, Calm Eyes: Yes: Conjunctiva Clear HENT: Yes: Atraumatic Cardiovascular: Yes: Regular Rate and Rhythm Respiratory: Yes: Regular, Diminished Gastrointestinal: Yes: Normal Bowel Sounds, Soft, Ascites Musculoskeletal: Yes: Muscle Weakness Extremities: Yes: WNL Edema: Yes Edema: LLE: 2+, RLE: 2+ Neurological: Yes: Alert, Oriented Psychiatric: Yes: Alert, Oriented Labs: CBC, BMP 09/09/19 06:50 09/09/19 06:50 INR, PTT INR 1.61 (0.83-1.09) H 09/07/19 10:15 Microbiology 09/05/19 12:20 Blood - Peripheral Venous Blood Culture - Preliminary NO GROWTH OBTAINED AFTER 72 HOURS, INCUBATION TO CONTINUE FOR 2 DAYS. 09/05/19 12:05 Blood - Peripheral Venous Blood Culture - Preliminary NO GROWTH OBTAINED AFTER 72 HOURS, INCUBATION TO CONTINUE FOR 2 DAYS. 09/05/19 19:00 Peritoneal Fluid Gram Stain - Final 09/05/19 19:00 Peritoneal Fluid Body Fluid Culture - Final NO GROWTH OF AEROBIC ORGANISMS AFTER 48 HOURS INCUBATION 09/05/19 19:00 Peritoneal Fluid Anaerobic Culture - Final NO ANAEROBES WERE ISOLATED 09/05/19 13:25 Urine - Urine Clean Catch Urine Culture - Final NO GROWTH OBTAINED Problem List - Problems (1) Hypomagnesemia Assessment/Plan: -Magnesium 1.2 -received Mag 2g IVPB x 1 day -monitor electrolyte and replete as needed -Renal on board Code(s): E83.42 - HYPOMAGNESEMIA (2) Alcoholic cirrhosis Assessment/Plan: -GI on board -Hepatitis Panel reviewed -Lactulose -EGD on 08/2019 shows small esophageal varices, duodena bulb ulcer Code(s): K70.30 - ALCOHOLIC CIRRHOSIS OF LIVER WITHOUT ASCITES (3) Anasarca Assessment/Plan: -Renal on board -BUN/Cr 29.0/1.0 -Nadolol, Spironolactone, Furosemide -daily weights -recent paracentesis with Code(s): R60.1 - GENERALIZED EDEMA (4) Ascites Assessment/Plan: -GI and Renal on board -BUN/Cr 29.0/1.0 -Nadolol, Spironolactone, Furosemide -daily weights -recent paracentesis -strict I&O Code(s): R18.8 - OTHER ASCITES (5) Coagulopathy Assessment/Plan: -monitor INR Code(s): D68.9 - COAGULATION DEFECT, UNSPECIFIED (6) Hypokalemia Assessment/Plan: -K 3.6 -resolved -monitor electrolytes and replete as needed Code(s): E87.6 - HYPOKALEMIA (7) Hyponatremia Assessment/Plan: -Na 139 -resolved -monitor and replete as needed Code(s): E87.1 - HYPO-OSMOLALITY AND HYPONATREMIA (8) Renal failure Assessment/Plan: -Renal on board -BUN/Cr 29.0/1.0 -monitor renal function Code(s): N19 - UNSPECIFIED KIDNEY FAILURE Assessment/Plan see problem list will need SNF for short term rehab
--- NOTE | 2019-09-09 14:46 | CONSULT ---
Consult Detox [facility] Reason for Current Admission/Consult: Alcohol Dependence with withdrawals and cirrhosis. Referred by:: Sheldon Escobar - History History of Present Illness: 48 yo male with hx of etoh abuse - drinks 1/2-1 bottle vodka daily for 8 years. He had started to drink heavily 8 years ago after the passing away of his mother who he was taking care of at home. He recognizes his substance use disorder but has never made any attempts to cease. He denies any detox or rehab services in the past. Also, patient has a hx of htn, hld, dm on metformin/losartan, norvasc with abd swelling, LE swelling x 3 months. States he has never stopped drinking or gone through detox. States his made him come to the ER today for eval. States he has been taking his meds as prescribed. Pt states he feels sob when sitting up recently. Denies cp. Pt follows with Dr. Ledezma. states he has been taking baby asa daily and has been taking motrin for the last week for back pain. States he pulled his back. Pt walked in with a walker. Pt with LE swelling and anasarca. Patient complained of melena in the last two weeks prior to his admission. At home patient has been lying on his side as he having difficulty breathing Current Meds: Chlordiazepoxide HCl (Librium -) 25 mg PO Q6H PRN PRN Reason: WITHDRAWAL(CONT SUBST) Last Admin: 09/09/19 09:15 Dose: 25 mg Furosemide (Lasix -) 40 mg PO DAILY [facility] Last Admin: 09/09/19 09:04 Dose: 40 mg Levofloxacin (Levaquin 500 Mg Premixed Ivpb -) 500 mg in 100 mls @ 100 mls/hr IVPB Q48H [facility]; Protocol Lactulose (Cephulac (Oral Use)) 20 gm PO DAILY [facility] Last Admin: 09/09/19 09:04 Dose: 20 gm Lorazepam (Ativan Injection -) 2 mg IVPUSH Q4H PRN PRN Reason: ANXIETY Magnesium Oxide (Mag-Ox -) 400 mg PO BID [facility] Last Admin: 09/09/19 09:04 Dose: 400 mg Nadolol (Corgard -) 40 mg PO DAILY [facility] Last Admin: 09/09/19 09:05 Dose: 40 mg Nystatin (Mycostatin Cream -) 1 applic TP BID [facility] Last Admin: 09/09/19 09:05 Dose: 1 applic Pantoprazole Sodium (Protonix Iv) 40 mg IVPUSH DAILY [facility] Last Admin: 09/09/19 09:04 Dose: 40 mg Sodium Chloride (Normal Saline For Inhalation -) 3 ml IH Q6H PRN PRN Reason: dry mouth Spironolactone (Aldactone -) 25 mg PO BID [facility] Last Admin: 09/09/19 09:04 Dose: 25 mg - History Source History Provided By: Patient Limitations to Obtaining History: No Limitations - Alcohol/Substance Use Hx Alcohol Use: Yes (1/2 to 1 pint of vodka daily for 8 years) Hx Substance Use: No Hx Substance Use Treatment: No - Current Drug/Alcohol Use Alcohol Route: Oral Frequency: Daily Amount used: 1 pint of vodka Age of first use: 16 Date of Last Use: 09/04/19 - Past Medical History Cardio/Vascular: Yes: HTN, Hyperlipdemia Renal/: Yes: Renal Inusuff Endocrine: Yes: Diabetes Mellitus - Past Surgical History Past Surgical History: Yes: None - Significant Medical Findings: Patient seen in bed with nasal oxygen cannulae. Constitutional: Yes: No Distress, Calm Eyes: Yes: Pale Conjunctivae HENT: Yes: Atraumatic Cardiovascular: Yes: Regular Rate and Rhythm Respiratory: Yes: Regular, Diminished Gastrointestinal: Yes: Normal Bowel Sounds, Soft, + Ascites Musculoskeletal: Yes: Muscle Weakness Extremities: Yes: WNL Edema: Yes Edema: LLE: 2+, RLE: 2+ Neurological: Yes: Alert, Oriented Psychiatric: Yes: Alert, Oriented CIWA Score - CIWA Score Nausea/Vomitin-Mild Nausea/No Vomiting Muscle Tremors: 3 Anxiety: 2 Agitation: 2 Paroxysmal Sweats: 3 Orientation: 0-Oriented Tacttile Disturbances: 0-None Auditory Disturbances: 0-None Visual Disturbances: 0-None Headache: 1-Very Mild CIWA-Ar Total Score: 12 Assessment Plan - Diagnosis (1) Alcohol dependence with uncomplicated withdrawal Status: Acute (2) Alcoholic cirrhosis Status: Acute (3) Ascites Status: Acute (4) Coagulopathy Status: Acute (5) Hypokalemia Status: Acute (6) Hypomagnesemia Status: Acute (7) Renal failure Status: Acute (8) Symptomatic anemia Status: Acute - Plan Plan: Alcohol Dependence with continued withdrawals: Patient is still low score CIWA so may still be experiencing some withdrawals. Because he has cirrhosis, even librium use for control of symptoms of withdrawals has to be carefully assessed. He has gotten few doses for comfort but a detox protocol for him would be inappropriate. More likely prn Ativan for symptoms of withdrawals would be even more preferable than librium. This I will leave to the discretion of medical management while he is hospitalized. Most medications for treatment on outpatient basis has liver metabolism, therefore, use of librium or naltrexone, topiramate, and disulfiram would probably be contraindicated for him. If he enters correction care and continues to have difficulties with abstinence, perhaps the safest medication would be campral to be initiated here and continued while in the correction. Campral has no liver metabolism and would be safe even in cirrhosis but there aren't any studies [facility] of the use of campral as a medication assisted treatment in alcohol dependent patients. Thank you for your request for consultation. Dr. Coughlin
--- NOTE | 2019-09-09 17:20 | PN ---
Progress Note, Physician History of Present Illness: Pt seen and examined at bedside. He is out of bed to chair. He denies shortness of breath. He feels that his edema is improving. - Current Medication List Current Medications: Active Medications Chlordiazepoxide HCl (Librium -) 25 mg PO Q6H PRN PRN Reason: WITHDRAWAL(CONT SUBST) Last Admin: 09/09/19 09:15 Dose: 25 mg Furosemide (Lasix -) 40 mg PO DAILY [facility] Last Admin: 09/09/19 09:04 Dose: 40 mg Levofloxacin (Levaquin 500 Mg Premixed Ivpb -) 500 mg in 100 mls @ 100 mls/hr IVPB Q48H [facility]; Protocol Last Admin: 09/09/19 16:23 Dose: 100 mls/hr Lactulose (Cephulac (Oral Use)) 20 gm PO DAILY [facility] Last Admin: 09/09/19 09:04 Dose: 20 gm Lorazepam (Ativan Injection -) 2 mg IVPUSH Q4H PRN PRN Reason: ANXIETY Nadolol (Corgard -) 40 mg PO DAILY [facility] Last Admin: 09/09/19 09:05 Dose: 40 mg Nystatin (Mycostatin Cream -) 1 applic TP BID [facility] Last Admin: 09/09/19 09:05 Dose: 1 applic Pantoprazole Sodium (Protonix Iv) 40 mg IVPUSH DAILY [facility] Last Admin: 09/09/19 09:04 Dose: 40 mg Sodium Chloride (Normal Saline For Inhalation -) 3 ml IH Q6H PRN PRN Reason: dry mouth Spironolactone (Aldactone -) 25 mg PO BID [facility] Last Admin: 09/09/19 09:04 Dose: 25 mg - Objective Vital Signs: Vital Signs Temperature 97.4 F L 09/09/19 13:55 Pulse Rate 72 09/09/19 13:55 Respiratory Rate 20 09/09/19 13:55 Blood Pressure 117/55 L 09/09/19 13:55 O2 Sat by Pulse Oximetry (%) 100 09/09/19 09:00 Constitutional: Yes: Calm Eyes: Yes: Conjunctiva Clear HENT: Yes: Atraumatic Cardiovascular: Yes: S1, S2 Respiratory: Yes: CTA Bilaterally Gastrointestinal: Yes: Normal Bowel Sounds, Soft, Ascites Musculoskeletal: Yes: WNL Edema: Yes Edema: LLE: 2+, RLE: 2+ Integumentary: Yes: Venous Stasis Changes Neurological: Yes: Oriented Psychiatric: Yes: Oriented Labs: CBC, BMP 09/09/19 06:50 09/09/19 06:50 INR, PTT INR 1.61 (0.83-1.09) H 09/07/19 10:15 Problem List - Problems (1) Ascites Code(s): R18.8 - OTHER ASCITES (2) Anasarca Code(s): R60.1 - GENERALIZED EDEMA (3) Coagulopathy Code(s): D68.9 - COAGULATION DEFECT, UNSPECIFIED (4) Hyponatremia Code(s): E87.1 - HYPO-OSMOLALITY AND HYPONATREMIA (5) Renal failure Code(s): N19 - UNSPECIFIED KIDNEY FAILURE (6) Symptomatic anemia Code(s): D64.9 - ANEMIA, UNSPECIFIED Assessment/Plan Current Medications Generic Name Dose Route Start Last Admin Trade Name Freq PRN Reason Stop Dose Admin Chlordiazepoxide HCl 25 mg 09/08/19 13:33 09/09/19 09:15 Librium - PO 25 mg Q6H PRN Administration WITHDRAWAL(CONT SUBST) Furosemide 40 mg 09/08/19 14:30 09/09/19 09:04 Lasix - PO 40 mg DAILY [facility] Administration Levofloxacin 500 mg in 100 mls @ 100 mls/hr 09/09/19 16:30 09/09/19 16:23 Levaquin 500 Mg Premixed Ivpb - IVPB 100 mls/hr Q48H [facility] Administration Protocol Lactulose 20 gm 09/09/19 10:00 09/09/19 09:04 Cephulac (Oral Use) PO 20 gm DAILY [facility] Administration Lorazepam 2 mg 09/08/19 14:54 Ativan Injection - IVPUSH Q4H PRN ANXIETY Magnesium Oxide 800 mg 09/09/19 17:17 Mag-Ox - PO BID [facility] Nadolol 40 mg 09/08/19 12:00 09/09/19 09:05 Corgard - PO 40 mg DAILY [facility] Administration Nystatin 1 applic 09/08/19 22:00 09/09/19 09:05 Mycostatin Cream - TP 1 applic BID [facility] Administration Pantoprazole Sodium 40 mg 09/09/19 10:00 09/09/19 09:04 Protonix Iv IVPUSH 40 mg DAILY [facility] Administration Sodium Chloride 3 ml 09/08/19 06:37 Normal Saline For Inhalation - IH Q6H PRN dry mouth Spironolactone 25 mg 09/08/19 14:21 09/09/19 09:04 Aldactone - PO 25 mg BID [facility] Administration Impression 1. JUSTINE 2. hyponatremia hypervolemic 3. etoh abuse 4. fluid overload 5. metabolic overload 6. DM 7. htn 8. hld 9. anemia Plan - cont aldactone and lasix - monitor volume status - replace magnesium - monitor lytes - pt will need to follow with GI closely
--- NOTE | 2019-09-09 18:13 | PN.GI ---
GI Progress Note Subjective: No acute events No abdominal pain Sitting up having dinner 3-4 loose BM's today Weight 262 lbs. today, was 255 lbs. yesterday. - Objective Vital Signs: Vital Signs Temperature 97.4 F L 09/09/19 13:55 Pulse Rate 72 09/09/19 13:55 Respiratory Rate 20 09/09/19 13:55 Blood Pressure 117/55 L 09/09/19 13:55 O2 Sat by Pulse Oximetry (%) 100 09/09/19 09:00 Constitutional: Calm Eyes: No: Sclera Icterus Cardiovascular: Yes: Regular Rate and Rhythm Respiratory: Yes: Diminished (at bases bilaterally) Gastrointestinal Inspection: Yes: Distention. No: Scars ...Auscultate: Yes: Normoactive Bowel Sounds ...Palpate: No: Tenderness ...Percussion: No: Tympanitic Edema: No ( ) Edema: LLE: 3+, RLE: 3+ Neurological: Yes: Alert Labs: CBC, BMP 09/09/19 06:50 09/09/19 06:50 INR, PTT INR 1.61 (0.83-1.09) H 09/07/19 10:15 Problem List - Problems (1) Alcoholic cirrhosis Assessment/Plan: Decompensated cirrhosis: Small esophageal varices noted on EGD with clean based duodenal bulb ulcer Titrate diuretics. Renal following. Monitor I's and O's daily weights. Spoke with Dr. Rutledge, increasing lasix to 4o IVP BID for now. Will likely need aldactone titrated as well. Small varices seen without stigmata. No need for beta maddie therapy in that setting, with repeat EGD in 1 year. Stopped IV protonix as this is jjust another source if Na. Changed to Protonix 40mg once daily. Await biopsy results from EGD. If h. pylori +, would need Rx. Code(s): K70.30 - ALCOHOLIC CIRRHOSIS OF LIVER WITHOUT ASCITES
[2019-09-09] MEDS ORDERED: HEPARIN NA (PORCINE) 5,000 UNITS/ML 1ML VIAL SQ SCH (22:00)
[2019-09-10] MEDS ORDERED: FUROSEMIDE 40 MG/4 ML INJECTABLE VIAL IVPUSH SCH (06:00)
[2019-09-10 06:42] LABS: EOS % 9.8 % (0-4.5); HEMATOCRIT 27.1 % (35.4-49); LYMPH % 10.1 % (8-40); MCH 27.6 pg (25.7-33.7); MCHC 33.3 g/dl (32.0-35.9); MEAN PLT VOLUME 8.1 fl (7.5-11.1); MONO % 13.6 % (3.8-10.2); NEUT % 65.5 % (42.8-82.8); PLATELET COUNT 143 K/MM3 (134-434); RBC 3.26 M/mm3 (4.00-5.60); RDW 20.1 % (11.9-15.9); WHITE BLOOD COUNT 7.4 K/mm3 (4.0-10.0)
[2019-09-10 06:59] LABS: ALBUMIN 2.2 g/dl (3.4-5.0); BILIRUBIN,TOTAL 1.5 mg/dL (0.2-1); BLOOD UREA NITROGEN 22.2 mg/dL (7-18); CALCIUM 7.8 mg/dL (8.5-10.1); MAGNESIUM 1.3 mg/dL (1.8-2.4); POTASSIUM 3.7 mmol/L (3.5-5.1); TOT PROT 5.9 g/dl (6.4-8.2)
--- NOTE | 2019-09-10 07:26 | PN ---
Progress Note, Physician Chief Complaint: Anasarca Renal failure History of Present Illness: Awaiting acceptance at [facility] - Current Medication List Current Medications: Active Medications Chlordiazepoxide HCl (Librium -) 25 mg PO Q6H PRN PRN Reason: WITHDRAWAL(CONT SUBST) Last Admin: 09/09/19 09:15 Dose: 25 mg Furosemide (Lasix Injection -) 40 mg IVPUSH BID@0600,1400 [facility] Last Admin: 09/10/19 06:21 Dose: 40 mg Lactulose (Cephulac (Oral Use)) 20 gm PO DAILY [facility] Last Admin: 09/09/19 09:04 Dose: 20 gm Lorazepam (Ativan Injection -) 2 mg IVPUSH Q4H PRN PRN Reason: ANXIETY Magnesium Oxide (Mag-Ox -) 800 mg PO BID [facility] Last Admin: 09/09/19 22:08 Dose: 800 mg Nadolol (Corgard -) 40 mg PO DAILY [facility] Last Admin: 09/09/19 09:05 Dose: 40 mg Nystatin (Mycostatin Cream -) 1 applic TP BID [facility] Last Admin: 09/09/19 22:10 Dose: 1 applic Pantoprazole Sodium (Protonix -) 40 mg PO DAILY [facility] Sodium Chloride (Normal Saline For Inhalation -) 3 ml IH Q6H PRN PRN Reason: dry mouth Spironolactone (Aldactone -) 25 mg PO BID [facility] Last Admin: 09/09/19 22:08 Dose: 25 mg - Objective Vital Signs: Vital Signs Temperature 97.8 F 09/10/19 06:03 Pulse Rate 73 09/10/19 06:03 Respiratory Rate 18 09/10/19 06:03 Blood Pressure 100/61 09/10/19 06:03 O2 Sat by Pulse Oximetry (%) 97 09/10/19 00:00 Constitutional: Yes: Well Nourished, No Distress, Calm Cardiovascular: Yes: Regular Rate and Rhythm Respiratory: Yes: Regular Gastrointestinal: Yes: WNL, Normal Bowel Sounds, Soft, Ascites Genitourinary: Yes: WNL Musculoskeletal: Yes: Muscle Weakness Extremities: Yes: WNL Edema: No Peripheral Pulses WNL: Yes Neurological: Yes: Alert, Oriented Psychiatric: Yes: Alert, Oriented Labs: CBC, BMP 09/10/19 06:20 09/10/19 06:20 INR, PTT INR 1.61 (0.83-1.09) H 09/07/19 10:15 Assessment/Plan (1) Hypomagnesemia Assessment/Plan: -monitor electrolyte and replete as needed -Renal on board -Mg 800 mg po BID Code(s): E83.42 - HYPOMAGNESEMIA (2) Alcoholic cirrhosis Assessment/Plan: -GI on board -Hepatitis Panel reviewed -Lactulose -EGD on 08/2019 shows small esophageal varices, duodena bulb ulcer Code(s): K70.30 - ALCOHOLIC CIRRHOSIS OF LIVER WITHOUT ASCITES (3) Anasarca Assessment/Plan: -Renal on board -Nadolol, Spironolactone, Furosemide -daily weights -recent paracentesis with Code(s): R60.1 - GENERALIZED EDEMA (4) Ascites Assessment/Plan: -GI and Renal on board -Nadolol, Spironolactone, Furosemide -daily weights -recent paracentesis -strict I&O Code(s): R18.8 - OTHER ASCITES (5) Coagulopathy Assessment/Plan: -monitor INR Code(s): D68.9 - COAGULATION DEFECT, UNSPECIFIED (6) Hypokalemia Assessment/Plan: -resolved -monitor electrolytes and replete as needed Code(s): E87.6 - HYPOKALEMIA (7) Hyponatremia Assessment/Plan: -Na 139 -resolved -monitor and replete as needed Code(s): E87.1 - HYPO-OSMOLALITY AND HYPONATREMIA (8) Renal failure Assessment/Plan: -Renal on board -monitor renal function Code(s): N19 - UNSPECIFIED KIDNEY FAILURE Assessment/Plan see problem list will need SNF for short term rehab- refrral sent to [facility], await acceptance and auth
[2019-09-10] MEDS: SPIRONOLACTONE 25 MG TABLET (FP) PO SCH ×2 (09:54→12:10)
[2019-09-10] MEDS: LACTULOSE 20 GM/30 ML UDC (FOR ORAL USE ONLY) PO SCH (09:54)
[2019-09-10] MEDS: NADOLOL 40 MG TABLET (FP) PO SCH (09:55)
[2019-09-10] MEDS: MAGNESIUM OXIDE 400 MG TABLET (FP) PO SCH ×2 (09:55→21:04)
[2019-09-10] MEDS: NYSTATIN 100,000 UNIT/GM TOPICAL CREAM 15 GM TUBE TP SCH ×2 (09:56→21:03)
[2019-09-10] MEDS: PANTOPRAZOLE 40 MG TABLET (FP) PO SCH (09:57)
--- NOTE | 2019-09-10 12:01 | PN ---
Progress Note (short form) - Note Progress Note: Reports feeling better. Still tremulous. Abdomen remains distended; has 2+ LE edema. CMP Sodium 140 mmol/L (136-145) 09/10/19 06:20 Potassium 3.7 mmol/L (3.5-5.1) 09/10/19 06:20 Chloride 105 mmol/L (98-107) 09/10/19 06:20 Carbon Dioxide 27 mmol/L (21-32) 09/10/19 06:20 Anion Gap 7 MMOL/L (8-16) L 09/10/19 06:20 BUN 22.2 mg/dL (7-18) H 09/10/19 06:20 Creatinine 1.0 mg/dL (0.55-1.3) 09/10/19 06:20 Est GFR (CKD-EPI)AfAm 101.98 09/10/19 06:20 Est GFR (CKD-EPI)NonAf 87.99 09/10/19 06:20 POC Glucometer 140 UNITS (80-120) 09/10/19 11:18 Random Glucose 86 mg/dL (74-106) 09/10/19 06:20 Serum Osmolality 292 mosm/kg (278-305) 09/05/19 17:30 Lactic Acid 1.4 mmol/L (0.4-2.0) 09/06/19 08:35 Calcium 7.8 mg/dL (8.5-10.1) L 09/10/19 06:20 Phosphorus 2.9 mg/dL (2.5-4.9) 09/09/19 06:50 Magnesium 1.3 mg/dL (1.8-2.4) L 09/10/19 06:20 Iron 68 ug/dL (50-175) 09/06/19 05:20 TIBC 212 ug/dL (250-450) L 09/06/19 05:20 Iron Saturation 32 % (17.5-39) 09/06/19 05:20 Unsaturated IBC 144 ug/dL (200-275) L 09/06/19 05:20 Total Bilirubin 1.5 mg/dL (0.2-1) H 09/10/19 06:20 AST 39 U/L (15-37) H 09/10/19 06:20 ALT 18 U/L (13-61) 09/10/19 06:20 Alkaline Phosphatase 148 U/L (45-117) H 09/10/19 06:20 Creatine Kinase 124 U/L (26-308) 09/05/19 11:06 Troponin I 0.04 ng/ml (0.00-0.05) 09/05/19 11:06 B-Natriuretic Peptide 707.7 pg/ml (5-125) H 09/05/19 11:06 Total Protein 5.9 g/dl (6.4-8.2) L 09/10/19 06:20 Total Protein (PEP) 5.7 g/dL (6.0-8.5) L 09/07/19 06:15 Albumin 2.2 g/dl (3.4-5.0) L 09/10/19 06:20 Albumin (PEP) 2.5 gm/dl (2.9-4.4) L 09/07/19 06:15 Globulin 3.2 g/dL (2.2-3.9) 09/07/19 06:15 Albumin/Globulin Ratio 0.8 (0.7-1.7) 09/07/19 06:15 Beta Globulins 1.0 gm/dL (0.7-1.3) 09/07/19 06:15 Creatinine stable, BUN improving. Will increase diuretics: furosemide 80 mg po daily spironolactone 100 mg po daily. Monitor weight, electrolytes, renal function.
[2019-09-10] MEDS ORDERED: FUROSEMIDE 40 MG TABLET (FP) PO SCH (14:00)
[2019-09-10] MEDS: MAGNESIUM SULF 50% (8.12 MEQ/2 ML-1 GM VIAL) IVPB ONE ×2 (15:27→16:54)
[2019-09-10] MEDS ORDERED: MAGNESIUM SULF 50% (8.12 MEQ/2 ML-1 GM VIAL) ONE (17:05)
[2019-09-10] MEDS ORDERED: MAGNESIUM SULF 50% (8.12 MEQ/2 ML-1 GM VIAL) IVPB ONE (17:59)
[2019-09-10] MEDS ORDERED: FUROSEMIDE 40 MG TABLET (FP) PO ONE (17:59)
--- NOTE | 2019-09-10 17:59 | PN ---
Progress Note, Physician History of Present Illness: Pt seen and examined at bedside. He is awake and alert. He denies shortness of breath. - Current Medication List Current Medications: Active Medications Chlordiazepoxide HCl (Librium -) 25 mg PO Q6H PRN PRN Reason: WITHDRAWAL(CONT SUBST) Last Admin: 09/09/19 09:15 Dose: 25 mg Furosemide (Lasix -) 80 mg PO DAILY [facility] Lactulose (Cephulac (Oral Use)) 20 gm PO DAILY [facility] Last Admin: 09/10/19 09:54 Dose: 20 gm Lorazepam (Ativan Injection -) 2 mg IVPUSH Q4H PRN PRN Reason: ANXIETY Magnesium Oxide (Mag-Ox -) 800 mg PO BID [facility] Last Admin: 09/10/19 09:55 Dose: 800 mg Nadolol (Corgard -) 40 mg PO DAILY [facility] Last Admin: 09/10/19 09:55 Dose: 40 mg Nystatin (Mycostatin Cream -) 1 applic TP BID [facility] Last Admin: 09/10/19 09:56 Dose: 1 applic Pantoprazole Sodium (Protonix -) 40 mg PO DAILY [facility] Last Admin: 09/10/19 09:57 Dose: 40 mg Sodium Chloride (Normal Saline For Inhalation -) 3 ml IH Q6H PRN PRN Reason: dry mouth Spironolactone (Aldactone -) 100 mg PO DAILY [facility] Last Admin: 09/10/19 12:10 Dose: 100 mg - Objective Vital Signs: Vital Signs Temperature 98.4 F 09/10/19 14:15 Pulse Rate 69 09/10/19 14:15 Respiratory Rate 20 09/10/19 14:15 Blood Pressure 94/56 L 09/10/19 14:15 O2 Sat by Pulse Oximetry (%) 98 09/10/19 09:00 Constitutional: Yes: Calm Eyes: Yes: Conjunctiva Clear HENT: Yes: Atraumatic Neck: Yes: Supple Cardiovascular: Yes: S1, S2 Respiratory: Yes: CTA Bilaterally Gastrointestinal: Yes: Ascites Genitourinary: Yes: WNL Musculoskeletal: Yes: WNL Edema: Yes Edema: LLE: 2+, RLE: 2+ Integumentary: Yes: Venous Stasis Changes Neurological: Yes: Oriented Psychiatric: Yes: Oriented Labs: CBC, BMP 09/10/19 06:20 09/10/19 06:20 INR, PTT INR 1.61 (0.83-1.09) H 09/07/19 10:15 Problem List - Problems (1) Ascites Code(s): R18.8 - OTHER ASCITES (2) Anasarca Code(s): R60.1 - GENERALIZED EDEMA (3) Coagulopathy Code(s): D68.9 - COAGULATION DEFECT, UNSPECIFIED (4) Hyponatremia Code(s): E87.1 - HYPO-OSMOLALITY AND HYPONATREMIA (5) Renal failure Code(s): N19 - UNSPECIFIED KIDNEY FAILURE (6) Symptomatic anemia Code(s): D64.9 - ANEMIA, UNSPECIFIED Assessment/Plan Current Medications Generic Name Dose Route Start Last Admin Trade Name Freq PRN Reason Stop Dose Admin Chlordiazepoxide HCl 25 mg 09/08/19 13:33 09/09/19 09:15 Librium - PO 25 mg Q6H PRN Administration WITHDRAWAL(CONT SUBST) Furosemide 80 mg 09/11/19 10:00 Lasix - PO DAILY YUE Lactulose 20 gm 09/09/19 10:00 09/10/19 09:54 Cephulac (Oral Use) PO 20 gm DAILY YUE Administration Lorazepam 2 mg 09/08/19 14:54 Ativan Injection - IVPUSH Q4H PRN ANXIETY Magnesium Oxide 800 mg 09/09/19 17:17 09/10/19 09:55 Mag-Ox - PO 800 mg BID YUE Administration Nadolol 40 mg 09/08/19 12:00 09/10/19 09:55 Corgard - PO 40 mg DAILY YUE Administration Nystatin 1 applic 09/08/19 22:00 09/10/19 09:56 Mycostatin Cream - TP 1 applic BID YUE Administration Pantoprazole Sodium 40 mg 09/10/19 10:00 09/10/19 09:57 Protonix - PO 40 mg DAILY [facility]UE Administration Sodium Chloride 3 ml 09/08/19 06:37 Normal Saline For Inhalation - IH Q6H PRN dry mouth Spironolactone 100 mg 09/10/19 12:00 09/10/19 12:10 Aldactone - PO 100 mg DAILY YUE Administration Impression 1. JUSTINE 2. hyponatremia hypervolemic 3. etoh abuse 4. fluid overload 5. metabolic overload 6. DM 7. htn 8. hld 9. anemia 10. ascites 11. liver cirrhosis Plan - cont lasix and aldactone - will give another dose of lasix now - discussed with GI - monitor volume status - replace magnesium - monitor lytes - pt will need to follow with GI closely
[2019-09-11 07:54] LABS: ALBUMIN 2.4 g/dl (3.4-5.0); BILIRUBIN,TOTAL 1.8 mg/dL (0.2-1); BLOOD UREA NITROGEN 17.8 mg/dL (7-18); CALCIUM 8.2 mg/dL (8.5-10.1); CREATININE 0.9 mg/dL (0.55-1.3); MAGNESIUM 1.8 mg/dL (1.8-2.4); POTASSIUM 3.4 mmol/L (3.5-5.1); TOT PROT 6.3 g/dl (6.4-8.2)
[2019-09-11] MEDS: SPIRONOLACTONE 25 MG TABLET (FP) PO SCH (10:00)
[2019-09-11] MEDS: NYSTATIN 100,000 UNIT/GM TOPICAL CREAM 15 GM TUBE TP SCH ×2 (10:01→21:04)
[2019-09-11] MEDS: FUROSEMIDE 40 MG TABLET (FP) PO SCH (10:01)
[2019-09-11] MEDS: LACTULOSE 20 GM/30 ML UDC (FOR ORAL USE ONLY) PO SCH (10:01)
[2019-09-11] MEDS: PANTOPRAZOLE 40 MG TABLET (FP) PO SCH (10:01)
[2019-09-11] MEDS: NADOLOL 40 MG TABLET (FP) PO SCH (10:01)
[2019-09-11] MEDS: MAGNESIUM OXIDE 400 MG TABLET (FP) PO SCH ×2 (10:01→21:02)
[2019-09-11] MEDS ORDERED: POTASSIUM CHLORIDE TABS 20 MEQ TABLET.ER (FP) PO ONE ×2 (10:14→15:30)
--- NOTE | 2019-09-11 10:29 | PN ---
Progress Note, Physician Chief Complaint: Anasarca Renal failure History of Present Illness: Awaiting acceptance at [facility] - Current Medication List Current Medications: Active Medications Chlordiazepoxide HCl (Librium -) 25 mg PO Q6H PRN PRN Reason: WITHDRAWAL(CONT SUBST) Last Admin: 09/09/19 09:15 Dose: 25 mg Furosemide (Lasix -) 80 mg PO DAILY [facility] Last Admin: 09/11/19 10:01 Dose: 80 mg Lactulose (Cephulac (Oral Use)) 20 gm PO DAILY [facility] Last Admin: 09/11/19 10:01 Dose: 20 gm Lorazepam (Ativan Injection -) 2 mg IVPUSH Q4H PRN PRN Reason: ANXIETY Magnesium Oxide (Mag-Ox -) 800 mg PO BID [facility] Last Admin: 09/11/19 10:01 Dose: 800 mg Nadolol (Corgard -) 40 mg PO DAILY [facility] Last Admin: 09/11/19 10:01 Dose: 40 mg Nystatin (Mycostatin Cream -) 1 applic TP BID [facility] Last Admin: 09/11/19 10:01 Dose: 1 applic Pantoprazole Sodium (Protonix -) 40 mg PO DAILY [facility] Last Admin: 09/11/19 10:01 Dose: 40 mg Sodium Chloride (Normal Saline For Inhalation -) 3 ml IH Q6H PRN PRN Reason: dry mouth Spironolactone (Aldactone -) 100 mg PO DAILY [facility] Last Admin: 09/11/19 10:00 Dose: 100 mg - Objective Vital Signs: Vital Signs Temperature 97.8 F 09/11/19 06:00 Pulse Rate 69 09/11/19 06:00 Respiratory Rate 17 09/11/19 06:00 Blood Pressure 96/57 L 09/11/19 06:00 O2 Sat by Pulse Oximetry (%) 97 09/11/19 08:25 Constitutional: Yes: Well Nourished, No Distress, Calm Cardiovascular: Yes: Regular Rate and Rhythm Respiratory: Yes: Regular Gastrointestinal: Yes: Normal Bowel Sounds, Soft, Ascites Musculoskeletal: Yes: WNL Extremities: Yes: WNL Edema: No Peripheral Pulses WNL: Yes Neurological: Yes: Alert, Oriented Psychiatric: Yes: Alert, Oriented Labs: CBC, BMP 09/10/19 06:20 09/11/19 06:20 INR, PTT INR 1.61 (0.83-1.09) H 09/07/19 10:15 Assessment/Plan (1) Hypomagnesemia Assessment/Plan: -monitor electrolyte and replete as needed -Renal on board -Mg 800 mg po BID Code(s): E83.42 - HYPOMAGNESEMIA (2) Alcoholic cirrhosis Assessment/Plan: -GI on board -Hepatitis Panel reviewed -Lactulose -EGD on 08/2019 shows small esophageal varices, duodena bulb ulcer Code(s): K70.30 - ALCOHOLIC CIRRHOSIS OF LIVER WITHOUT ASCITES (3) Anasarca Assessment/Plan: -Renal on board -Nadolol, Spironolactone, Furosemide -daily weights -recent paracentesis Code(s): R60.1 - GENERALIZED EDEMA (4) Ascites Assessment/Plan: -GI and Renal on board -Nadolol, Spironolactone, Furosemide -daily weights -recent paracentesis -strict I&O Code(s): R18.8 - OTHER ASCITES (5) Coagulopathy Assessment/Plan: -monitor INR Code(s): D68.9 - COAGULATION DEFECT, UNSPECIFIED (6) Hypokalemia Assessment/Plan: -resolved -monitor electrolytes and replete as needed Code(s): E87.6 - HYPOKALEMIA (7) Hyponatremia Assessment/Plan: -resolved -monitor and replete as needed Code(s): E87.1 - HYPO-OSMOLALITY AND HYPONATREMIA (8) Renal failure Assessment/Plan: -Renal on board -monitor renal function Code(s): N19 - UNSPECIFIED KIDNEY FAILURE Assessment/Plan see problem list will need SNF for short term rehab- referral sent to [facility], await acceptance and auth
--- NOTE | 2019-09-11 18:43 | PN ---
Progress Note, Physician History of Present Illness: Pt seen and examined at bedside. He is awake and alert. he denies shortness of breath. - Current Medication List Current Medications: Active Medications Furosemide (Lasix -) 80 mg PO DAILY [facility] Last Admin: 09/11/19 10:01 Dose: 80 mg Lactulose (Cephulac (Oral Use)) 20 gm PO DAILY [facility] Last Admin: 09/11/19 10:01 Dose: 20 gm Magnesium Oxide (Mag-Ox -) 800 mg PO BID [facility] Last Admin: 09/11/19 10:01 Dose: 800 mg Nadolol (Corgard -) 40 mg PO DAILY [facility] Last Admin: 09/11/19 10:01 Dose: 40 mg Nystatin (Mycostatin Cream -) 1 applic TP BID [facility] Last Admin: 09/11/19 10:01 Dose: 1 applic Pantoprazole Sodium (Protonix -) 40 mg PO DAILY [facility] Last Admin: 09/11/19 10:01 Dose: 40 mg Sodium Chloride (Normal Saline For Inhalation -) 3 ml IH Q6H PRN PRN Reason: dry mouth Spironolactone (Aldactone -) 100 mg PO DAILY [facility] Last Admin: 09/11/19 10:00 Dose: 100 mg - Objective Vital Signs: Vital Signs Temperature 97.6 F 09/11/19 18:12 Pulse Rate 76 09/11/19 18:12 Respiratory Rate 18 09/11/19 18:12 Blood Pressure 90/54 L 09/11/19 18:12 O2 Sat by Pulse Oximetry (%) 99 09/11/19 09:00 Constitutional: Yes: Calm Eyes: Yes: Conjunctiva Clear HENT: Yes: Atraumatic Neck: Yes: Supple Cardiovascular: Yes: S1, S2 Respiratory: Yes: CTA Bilaterally Gastrointestinal: Yes: Soft, Abdomen, Obese, Ascites Genitourinary: Yes: WNL Musculoskeletal: Yes: WNL Edema: Yes Edema: LLE: 3+, RLE: 3+ Neurological: Yes: Oriented Psychiatric: Yes: Oriented Labs: CBC, BMP 09/10/19 06:20 09/11/19 06:20 INR, PTT INR 1.61 (0.83-1.09) H 09/07/19 10:15 Problem List - Problems (1) Ascites Code(s): R18.8 - OTHER ASCITES (2) Anasarca Code(s): R60.1 - GENERALIZED EDEMA (3) Coagulopathy Code(s): D68.9 - COAGULATION DEFECT, UNSPECIFIED (4) Hyponatremia Code(s): E87.1 - HYPO-OSMOLALITY AND HYPONATREMIA (5) Renal failure Code(s): N19 - UNSPECIFIED KIDNEY FAILURE (6) Symptomatic anemia Code(s): D64.9 - ANEMIA, UNSPECIFIED Assessment/Plan Current Medications Generic Name Dose Route Start Last Admin Trade Name Zana PRN Reason Stop Dose Admin Furosemide 80 mg 09/11/19 10:00 09/11/19 10:01 Lasix - PO 80 mg DAILY [facility] Administration Lactulose 20 gm 09/09/19 10:00 09/11/19 10:01 Cephulac (Oral Use) PO 20 gm DAILY [facility] Administration Magnesium Oxide 800 mg 09/09/19 17:17 09/11/19 10:01 Mag-Ox - PO 800 mg BID YUE Administration Nadolol 40 mg 09/08/19 12:00 09/11/19 10:01 Corgard - PO 40 mg DAILY [facility] Administration Nystatin 1 applic 09/08/19 22:00 09/11/19 10:01 Mycostatin Cream - TP 1 applic BID [facility]UE Administration Pantoprazole Sodium 40 mg 09/10/19 10:00 09/11/19 10:01 Protonix - PO 40 mg DAILY [facility] Administration Sodium Chloride 3 ml 09/08/19 06:37 Normal Saline For Inhalation - IH Q6H PRN dry mouth Spironolactone 100 mg 09/10/19 12:00 09/11/19 10:00 Aldactone - PO 100 mg DAILY [facility]UE Administration Impression 1. JUSTINE 2. hyponatremia hypervolemic 3. etoh abuse 4. fluid overload 5. metabolic overload 6. DM 7. htn 8. hld 9. anemia 10. ascites 11. liver cirrhosis Plan - cont diuretics - GI follow up for possible paracentesis - replace potassium - monitor volume status - monitor lytes
[2019-09-11] MEDS: chlordiazePOXIDE HCL 25 MG CAPSULE PO PRN (23:40)
[2019-09-12 07:54] LABS: ALBUMIN 2.4 g/dl (3.4-5.0); BILIRUBIN,TOTAL 1.6 mg/dL (0.2-1); BLOOD UREA NITROGEN 15.7 mg/dL (7-18); CALCIUM 8.2 mg/dL (8.5-10.1); CREATININE 0.9 mg/dL (0.55-1.3); MAGNESIUM 1.6 mg/dL (1.8-2.4); POTASSIUM 3.9 mmol/L (3.5-5.1); TOT PROT 6.2 g/dl (6.4-8.2)
[2019-09-12] MEDS: PANTOPRAZOLE 40 MG TABLET (FP) PO SCH (09:40)
[2019-09-12] MEDS: FUROSEMIDE 40 MG TABLET (FP) PO SCH (09:40)
[2019-09-12] MEDS: chlordiazePOXIDE HCL 25 MG CAPSULE PO PRN (09:40)
[2019-09-12] MEDS: LACTULOSE 20 GM/30 ML UDC (FOR ORAL USE ONLY) PO SCH (09:40)
[2019-09-12] MEDS: MAGNESIUM OXIDE 400 MG TABLET (FP) PO SCH ×2 (09:40→21:08)
[2019-09-12] MEDS: NADOLOL 40 MG TABLET (FP) PO SCH (09:41)
[2019-09-12] MEDS: SPIRONOLACTONE 25 MG TABLET (FP) PO SCH (09:41)
[2019-09-12] MEDS: NYSTATIN 100,000 UNIT/GM TOPICAL CREAM 15 GM TUBE TP SCH ×2 (09:41→21:08)
--- NOTE | 2019-09-12 10:56 | PN ---
Progress Note (short form) - Note Progress Note: PULMONARY Denies shortness of breath. Reports abdominal distention. Vital Signs Period Temp Pulse Resp BP Sys/Foy Pulse Ox Last 24 Hr 97.6 F-98.9 F 76-84 18-22 89-97/52-61 99-100 Intake & Output 09/09/19 09/10/19 09/11/19 09/12/19 23:59 23:59 23:59 23:59 Intake Total 924 882 8082 150 Output Total 250 Balance 162 857 5342 150 Weight 118.841 kg 116.392 kg 117.072 kg 117.962 kg Gen: mildly tachypneic with speaking Heart: RRR Lung: decreased breath sounds at the bases Abd: softly distended, nontender Ext: + edema CBC, BMP 09/10/19 06:20 09/12/19 06:35 Active Medications Chlordiazepoxide HCl (Librium -) 25 mg PO Q6H PRN PRN Reason: WITHDRAWAL(CONT SUBST) Last Admin: 09/12/19 09:40 Dose: 25 mg Furosemide (Lasix -) 80 mg PO DAILY [facility] Last Admin: 09/12/19 09:40 Dose: 80 mg Lactulose (Cephulac (Oral Use)) 20 gm PO DAILY [facility] Last Admin: 09/12/19 09:40 Dose: 20 gm Magnesium Oxide (Mag-Ox -) 800 mg PO BID [facility] Last Admin: 09/12/19 09:40 Dose: 800 mg Nadolol (Corgard -) 40 mg PO DAILY [facility] Last Admin: 09/12/19 09:41 Dose: 40 mg Nystatin (Mycostatin Cream -) 1 applic TP BID [facility] Last Admin: 09/12/19 09:41 Dose: 1 applic Pantoprazole Sodium (Protonix -) 40 mg PO DAILY [facility] Last Admin: 09/12/19 09:40 Dose: 40 mg Sodium Chloride (Normal Saline For Inhalation -) 3 ml IH Q6H PRN PRN Reason: dry mouth Spironolactone (Aldactone -) 100 mg PO DAILY [facility] Last Admin: 09/12/19 09:41 Dose: 100 mg A/P Massive Ascites s/p Large Volume Paracentesis Acute Kidney Injury improving Lactic/Metabolic Acidosis GI Bleed Anemia Alcohol Abuse r/o Liver Cirrhosis Hyponatremia improved HTN DM Hyperlipidemia Morbid Obesity - repeat abdominal ultrasound to reassess ascites - protonix - nadolol - completed empiric antibiotics - O2 to keep SpO2 >90% - continue lasix, aldactone - monitor urine output, creatinine - daily weights - rehab/PT - DVT prophylaxis
--- NOTE | 2019-09-12 11:01 | PN ---
Progress Note, Physician Chief Complaint: Anasarca Renal Failure History of Present Illness: Previous notes and events reviewed awake and alert NAD daily weights showing uptrend with current wt 260lbs~Abd US to assess fluid accumulation for possible repeat paracentesis BC and UC negative denies chest pain or SOB - Current Medication List Current Medications: Active Medications Chlordiazepoxide HCl (Librium -) 25 mg PO Q6H PRN PRN Reason: WITHDRAWAL(CONT SUBST) Last Admin: 09/12/19 09:40 Dose: 25 mg Furosemide (Lasix -) 80 mg PO DAILY [facility] Last Admin: 09/12/19 09:40 Dose: 80 mg Lactulose (Cephulac (Oral Use)) 20 gm PO DAILY [facility] Last Admin: 09/12/19 09:40 Dose: 20 gm Magnesium Oxide (Mag-Ox -) 800 mg PO BID [facility] Last Admin: 09/12/19 09:40 Dose: 800 mg Nadolol (Corgard -) 40 mg PO DAILY [facility] Last Admin: 09/12/19 09:41 Dose: 40 mg Nystatin (Mycostatin Cream -) 1 applic TP BID [facility] Last Admin: 09/12/19 09:41 Dose: 1 applic Pantoprazole Sodium (Protonix -) 40 mg PO DAILY [facility] Last Admin: 09/12/19 09:40 Dose: 40 mg Sodium Chloride (Normal Saline For Inhalation -) 3 ml IH Q6H PRN PRN Reason: dry mouth Spironolactone (Aldactone -) 100 mg PO DAILY [facility] Last Admin: 09/12/19 09:41 Dose: 100 mg - Objective Vital Signs: Vital Signs Temperature 98.1 F 09/12/19 10:00 Pulse Rate 78 09/12/19 10:00 Respiratory Rate 22 H 09/12/19 10:00 Blood Pressure 97/58 L 09/12/19 10:00 O2 Sat by Pulse Oximetry (%) 100 09/12/19 09:00 Constitutional: Yes: No Distress, Calm Eyes: Yes: Conjunctiva Clear HENT: Yes: Atraumatic Cardiovascular: Yes: Regular Rate and Rhythm Respiratory: Yes: Regular, CTA Bilaterally Gastrointestinal: Yes: Normal Bowel Sounds, Soft, Ascites Musculoskeletal: Yes: Muscle Weakness Extremities: Yes: WNL Edema: Yes Edema: LLE: 2+, RLE: 2+ Neurological: Yes: Alert, Oriented Psychiatric: Yes: Alert, Oriented Labs: CBC, BMP 09/10/19 06:20 09/12/19 06:35 INR, PTT INR 1.61 (0.83-1.09) H 09/07/19 10:15 Microbiology 09/05/19 12:20 Blood - Peripheral Venous Blood Culture - Final NO GROWTH AFTER 5 DAYS INCUBATION 09/05/19 12:05 Blood - Peripheral Venous Blood Culture - Final NO GROWTH AFTER 5 DAYS INCUBATION 09/05/19 19:00 Peritoneal Fluid Gram Stain - Final 09/05/19 19:00 Peritoneal Fluid Body Fluid Culture - Final NO GROWTH OF AEROBIC ORGANISMS AFTER 48 HOURS INCUBATION 09/05/19 19:00 Peritoneal Fluid Anaerobic Culture - Final NO ANAEROBES WERE ISOLATED 09/05/19 13:25 Urine - Urine Clean Catch Urine Culture - Final NO GROWTH OBTAINED Problem List - Problems (1) Hypomagnesemia Assessment/Plan: -Magnesium 1.6 -Magnesium Oxide BID -monitor electrolyte and replete as needed -Renal on board Code(s): E83.42 - HYPOMAGNESEMIA (2) Alcoholic cirrhosis Assessment/Plan: -GI on board -Hepatitis Panel reviewed -Lactulose -EGD on 08/2019 shows small esophageal varices, duodena bulb ulcer -Abd US to review fluid retention if repeat paracentesis is needed Code(s): K70.30 - ALCOHOLIC CIRRHOSIS OF LIVER WITHOUT ASCITES (3) Anasarca Assessment/Plan: -Renal on board -BUN/Cr 15.7/0.9 -Nadolol, Spironolactone, Furosemide -daily weights -Abd US Code(s): R60.1 - GENERALIZED EDEMA (4) Ascites Assessment/Plan: -GI and Renal on board -BUN/Cr 15.7/0.9 -Nadolol, Spironolactone, Furosemide -daily weights -recent paracentesis -strict I&O -Abd US to assess fluid accumulation for possible repeat paracentesis Code(s): R18.8 - OTHER ASCITES (5) Coagulopathy Assessment/Plan: -monitor INR -INR 1.61 Code(s): D68.9 - COAGULATION DEFECT, UNSPECIFIED (6) Hypokalemia Assessment/Plan: -K 3.9 -resolved -monitor electrolytes and replete as needed Code(s): E87.6 - HYPOKALEMIA (7) Hyponatremia Assessment/Plan: -Na 136 -resolved -monitor and replete as needed Code(s): E87.1 - HYPO-OSMOLALITY AND HYPONATREMIA (8) Renal failure Assessment/Plan: -Renal on board -BUN/Cr 15.7/0.9 -monitor renal function Code(s): N19 - UNSPECIFIED KIDNEY FAILURE Assessment/Plan see problem list d/c to [facility] when medically cleared
--- NOTE | 2019-09-12 11:18 | PATH ---
Surgical Pathology Report Patient Name: MILANA FERNANDO Med. Rec. #: [id number] /Age/Gender: 1970 (Age: 48) / M Account: [id number] Location: [facility] MED/SURG Taken: 09/07/2019 Received: 09/08/2019 Reported: 09/12/2019 Physicians: Judie Gutierrez MD Specimen(s) Received ANTRUM Clinical History GI bleed Postoperative diagnosis: Duodenal bulb ulcer, gastropathy, small esophageal varices Final Diagnosis ANTRUM BIOPSY: MODERATE CHRONIC ACTIVE GASTRITIS. IMMUNOSTAIN IS NEGATIVE FOR H. PYLORI ORGANISMS. Electronically Signed Alee Sheridan M.D. Gross Description Received in formalin, labeled "antrum biopsy" is a skinner, irregular portion of soft tissue measuring 0.7 cm. in greatest dimension. The specimen is submitted in toto in one cassette. 09/08/201909/08/2019
[2019-09-12 13:11] VITALS: BMI 38.4
--- NOTE | 2019-09-12 15:52 | PN ---
Progress Note, Physician History of Present Illness: Pt seen and examined at bedside. He is awake and alert. he complains of edema. - Current Medication List Current Medications: Active Medications Chlordiazepoxide HCl (Librium -) 25 mg PO Q6H PRN PRN Reason: WITHDRAWAL(CONT SUBST) Last Admin: 09/12/19 09:40 Dose: 25 mg Furosemide (Lasix -) 80 mg PO DAILY [facility] Last Admin: 09/12/19 09:40 Dose: 80 mg Lactulose (Cephulac (Oral Use)) 20 gm PO DAILY [facility] Last Admin: 09/12/19 09:40 Dose: 20 gm Magnesium Oxide (Mag-Ox -) 800 mg PO BID [facility] Last Admin: 09/12/19 09:40 Dose: 800 mg Nadolol (Corgard -) 40 mg PO DAILY [facility] Last Admin: 09/12/19 09:41 Dose: 40 mg Nystatin (Mycostatin Cream -) 1 applic TP BID [facility] Last Admin: 09/12/19 09:41 Dose: 1 applic Pantoprazole Sodium (Protonix -) 40 mg PO DAILY [facility] Last Admin: 09/12/19 09:40 Dose: 40 mg Sodium Chloride (Normal Saline For Inhalation -) 3 ml IH Q6H PRN PRN Reason: dry mouth Spironolactone (Aldactone -) 100 mg PO DAILY [facility] Last Admin: 09/12/19 09:41 Dose: 100 mg - Objective Vital Signs: Vital Signs Temperature 97.7 F 09/12/19 14:38 Pulse Rate 74 09/12/19 14:38 Respiratory Rate 20 09/12/19 14:38 Blood Pressure 91/60 09/12/19 14:38 O2 Sat by Pulse Oximetry (%) 100 09/12/19 09:00 Constitutional: Yes: Calm Eyes: Yes: Conjunctiva Clear HENT: Yes: Atraumatic Neck: Yes: Supple Cardiovascular: Yes: S1, S2 Respiratory: Yes: CTA Bilaterally Gastrointestinal: Yes: Ascites Genitourinary: Yes: WNL Musculoskeletal: Yes: WNL Edema: Yes Edema: LLE: 2+, RLE: 2+ Neurological: Yes: Oriented Psychiatric: Yes: Oriented Labs: CBC, BMP 09/10/19 06:20 09/12/19 06:35 INR, PTT INR 1.61 (0.83-1.09) H 09/07/19 10:15 Problem List - Problems (1) Ascites Code(s): R18.8 - OTHER ASCITES (2) Anasarca Code(s): R60.1 - GENERALIZED EDEMA (3) Coagulopathy Code(s): D68.9 - COAGULATION DEFECT, UNSPECIFIED (4) Hyponatremia Code(s): E87.1 - HYPO-OSMOLALITY AND HYPONATREMIA (5) Renal failure Code(s): N19 - UNSPECIFIED KIDNEY FAILURE (6) Symptomatic anemia Code(s): D64.9 - ANEMIA, UNSPECIFIED Assessment/Plan Current Medications Generic Name Dose Route Start Last Admin Trade Name Freq PRN Reason Stop Dose Admin Chlordiazepoxide HCl 25 mg 09/11/19 23:19 09/12/19 09:40 Librium - PO 25 mg Q6H PRN Administration WITHDRAWAL(CONT SUBST) Furosemide 80 mg 09/11/19 10:00 09/12/19 09:40 Lasix - PO 80 mg DAILY YUE Administration Lactulose 20 gm 09/09/19 10:00 09/12/19 09:40 Cephulac (Oral Use) PO 20 gm DAILY YUE Administration Magnesium Oxide 800 mg 09/09/19 17:17 09/12/19 09:40 Mag-Ox - PO 800 mg BID YUE Administration Nadolol 40 mg 09/08/19 12:00 09/12/19 09:41 Corgard - PO 40 mg DAILY YUE Administration Nystatin 1 applic 09/08/19 22:00 09/12/19 09:41 Mycostatin Cream - TP 1 applic BID YUE Administration Pantoprazole Sodium 40 mg 09/10/19 10:00 09/12/19 09:40 Protonix - PO 40 mg DAILY YUE Administration Sodium Chloride 3 ml 09/08/19 06:37 Normal Saline For Inhalation - IH Q6H PRN dry mouth Spironolactone 100 mg 09/10/19 12:00 09/12/19 09:41 Aldactone - PO 100 mg DAILY YUE Administration Impression 1. JUSTINE 2. hyponatremia hypervolemic 3. etoh abuse 4. fluid overload 5. metabolic overload 6. DM 7. htn 8. hld 9. anemia 10. ascites 11. liver cirrhosis Plan - replace mag - will give an extra dose of lasix - monitor lytes - GI follow up for possible paracentesis - replace potassium
[2019-09-12] MEDS ORDERED: FUROSEMIDE 40 MG/4 ML INJECTABLE VIAL IVPUSH ONE (15:53)
[2019-09-12] MEDS ORDERED: POTASSIUM CHLORIDE TABS 20 MEQ TABLET.ER (FP) PO ONE (15:53)
[2019-09-12] MEDS ORDERED: MAGNESIUM SULF 50% (8.12 MEQ/2 ML-1 GM VIAL) IVPB ONE (15:53)
[2019-09-12 16:11] LABS: ATYPICAL pANCA <1:20 titer (Neg:<1:20); C-ANCA <1:20 titer (Neg:<1:20)
[2019-09-13 08:10] LABS: ALBUMIN 2.3 g/dl (3.4-5.0); BILIRUBIN,TOTAL 1.6 mg/dL (0.2-1); CALCIUM 8.1 mg/dL (8.5-10.1); CREATININE 0.8 mg/dL (0.55-1.3); POTASSIUM 3.7 mmol/L (3.5-5.1); TOT PROT 6.1 g/dl (6.4-8.2)
[2019-09-13 08:11] LABS: HEMATOCRIT 26.2 % (35.4-49); HEMOGLOBIN 8.5 GM/dL (11.7-16.9); MCH 27.3 pg (25.7-33.7); MCHC 32.7 g/dl (32.0-35.9); MEAN CELL VOLUME 83.5 fl (80-96); MEAN PLT VOLUME 8.9 fl (7.5-11.1); PLATELET COUNT 195 K/MM3 (134-434); RBC 3.14 M/mm3 (4.00-5.60); RDW 22.2 % (11.9-15.9); WHITE BLOOD COUNT 7.1 K/mm3 (4.0-10.0)
[2019-09-13] MEDS: LACTULOSE 20 GM/30 ML UDC (FOR ORAL USE ONLY) PO SCH (09:30)
[2019-09-13] MEDS: FUROSEMIDE 40 MG TABLET (FP) PO SCH (09:32)
[2019-09-13] MEDS: NADOLOL 40 MG TABLET (FP) PO SCH (09:32)
[2019-09-13] MEDS: PANTOPRAZOLE 40 MG TABLET (FP) PO SCH (09:32)
[2019-09-13] MEDS: MAGNESIUM OXIDE 400 MG TABLET (FP) PO SCH ×2 (09:32→21:45)
[2019-09-13] MEDS: chlordiazePOXIDE HCL 25 MG CAPSULE PO PRN (09:32)
[2019-09-13] MEDS: NYSTATIN 100,000 UNIT/GM TOPICAL CREAM 15 GM TUBE TP SCH ×2 (09:33→21:45)
[2019-09-13] MEDS: SPIRONOLACTONE 25 MG TABLET (FP) PO SCH (09:33)
--- NOTE | 2019-09-13 10:43 | PN ---
Progress Note (short form) - Note Progress Note: PULMONARY Denies shortness of breath. Ultrasound yesterday showing moderate ascites but pt making urine and weight down today. Ambulated with PT. Vital Signs Period Temp Pulse Resp BP Sys/Foy Pulse Ox Last 24 Hr 74 F-98.3 F 71-78 20-20 83-104/52-62 100-100 Intake & Output 09/10/19 09/11/19 09/12/19 09/13/19 23:59 23:59 23:59 23:59 Intake Total 700 1360 850 0 Balance 700 1360 850 0 Weight 116.392 kg 117.072 kg 117.962 kg 116.891 kg Gen: mildly tachypneic with speaking Heart: RRR Lung: decreased breath sounds at the bases Abd: softly distended, nontender Ext: + edema CBC, BMP 09/13/19 06:45 09/13/19 06:45 Active Medications Chlordiazepoxide HCl (Librium -) 25 mg PO Q6H PRN PRN Reason: WITHDRAWAL(CONT SUBST) Last Admin: 09/13/19 09:32 Dose: 25 mg Furosemide (Lasix -) 80 mg PO DAILY [facility] Last Admin: 09/13/19 09:32 Dose: 80 mg Lactulose (Cephulac (Oral Use)) 20 gm PO DAILY [facility] Last Admin: 09/13/19 09:30 Dose: 20 gm Magnesium Oxide (Mag-Ox -) 800 mg PO BID [facility] Last Admin: 09/13/19 09:32 Dose: 800 mg Nadolol (Corgard -) 40 mg PO DAILY [facility] Last Admin: 09/13/19 09:32 Dose: 40 mg Nystatin (Mycostatin Cream -) 1 applic TP BID [facility] Last Admin: 09/13/19 09:33 Dose: 1 applic Pantoprazole Sodium (Protonix -) 40 mg PO DAILY [facility] Last Admin: 09/13/19 09:32 Dose: 40 mg Sodium Chloride (Normal Saline For Inhalation -) 3 ml IH Q6H PRN PRN Reason: dry mouth Spironolactone (Aldactone -) 100 mg PO DAILY [facility] Last Admin: 09/13/19 09:33 Dose: 100 mg A/P Massive Ascites s/p Large Volume Paracentesis Acute Kidney Injury improving Lactic/Metabolic Acidosis GI Bleed Anemia Alcohol Abuse r/o Liver Cirrhosis Hyponatremia improved HTN DM Hyperlipidemia Morbid Obesity - continue lasix, aldactone - monitor urine output, creatinine - daily weights - protonix - nadolol - completed empiric antibiotics - O2 to keep SpO2 >90% - rehab/PT - DVT prophylaxis
--- NOTE | 2019-09-13 13:15 | PN ---
Progress Note, Physician Chief Complaint: Anasarca Renal Failure History of Present Illness: Previous notes and events reviewed awake and alert NAD complain of itching BC and UC negative denies chest pain or SOB had episode of hypotension, denied dizziness and chest pain when occurred - Current Medication List Current Medications: Active Medications Chlordiazepoxide HCl (Librium -) 25 mg PO Q6H PRN PRN Reason: WITHDRAWAL(CONT SUBST) Last Admin: 09/13/19 09:32 Dose: 25 mg Furosemide (Lasix -) 80 mg PO DAILY [facility] Last Admin: 09/13/19 09:32 Dose: 80 mg Lactulose (Cephulac (Oral Use)) 20 gm PO DAILY [facility] Last Admin: 09/13/19 09:30 Dose: 20 gm Magnesium Oxide (Mag-Ox -) 800 mg PO BID [facility] Last Admin: 09/13/19 09:32 Dose: 800 mg Nadolol (Corgard -) 40 mg PO DAILY [facility] Last Admin: 09/13/19 09:32 Dose: 40 mg Nystatin (Mycostatin Cream -) 1 applic TP BID [facility] Last Admin: 09/13/19 09:33 Dose: 1 applic Pantoprazole Sodium (Protonix -) 40 mg PO DAILY [facility] Last Admin: 09/13/19 09:32 Dose: 40 mg Sodium Chloride (Normal Saline For Inhalation -) 3 ml IH Q6H PRN PRN Reason: dry mouth Spironolactone (Aldactone -) 100 mg PO DAILY [facility] Last Admin: 09/13/19 09:33 Dose: 100 mg - Objective Vital Signs: Vital Signs Temperature 98.3 F 09/13/19 10:00 Pulse Rate 78 09/13/19 10:00 Respiratory Rate 20 09/13/19 10:00 Blood Pressure 95/59 L 09/13/19 12:46 O2 Sat by Pulse Oximetry (%) 100 09/13/19 09:00 Constitutional: Yes: No Distress, Calm Eyes: Yes: Conjunctiva Clear HENT: Yes: Atraumatic Cardiovascular: Yes: Regular Rate and Rhythm Respiratory: Yes: Regular, CTA Bilaterally Gastrointestinal: Yes: Normal Bowel Sounds, Soft, Ascites Musculoskeletal: Yes: Muscle Weakness Extremities: Yes: WNL Edema: Yes Edema: LLE: 2+, RLE: 2+ Neurological: Yes: Alert, Oriented Psychiatric: Yes: Alert, Oriented Labs: CBC, BMP 09/13/19 06:45 09/13/19 06:45 INR, PTT INR 1.61 (0.83-1.09) H 09/07/19 10:15 Microbiology 09/05/19 12:20 Blood - Peripheral Venous Blood Culture - Final NO GROWTH AFTER 5 DAYS INCUBATION 09/05/19 12:05 Blood - Peripheral Venous Blood Culture - Final NO GROWTH AFTER 5 DAYS INCUBATION 09/05/19 19:00 Peritoneal Fluid Gram Stain - Final 09/05/19 19:00 Peritoneal Fluid Body Fluid Culture - Final NO GROWTH OF AEROBIC ORGANISMS AFTER 48 HOURS INCUBATION 09/05/19 19:00 Peritoneal Fluid Anaerobic Culture - Final NO ANAEROBES WERE ISOLATED 09/05/19 13:25 Urine - Urine Clean Catch Urine Culture - Final NO GROWTH OBTAINED Problem List - Problems (1) Hypomagnesemia Assessment/Plan: -Magnesium 1.6 -Magnesium Oxide BID -monitor electrolyte and replete as needed -Renal on board Code(s): E83.42 - HYPOMAGNESEMIA (2) Alcoholic cirrhosis Assessment/Plan: -GI on board -Hepatitis Panel reviewed -Lactulose -EGD on 08/2019 shows small esophageal varices, duodena bulb ulcer -Abd US shows moderate amount of ascites -INR 1.61 from 09/07, repeat INR ordered if elevated will order Vitamin K 10mg IV -IR consult for US guided paracentesis Code(s): K70.30 - ALCOHOLIC CIRRHOSIS OF LIVER WITHOUT ASCITES (3) Anasarca Assessment/Plan: -Renal on board -BUN/Cr 15.7/0.9 -Nadolol, Spironolactone, Furosemide -daily weights -Abd US shows moderate amount of ascites -INR 1.61 from 09/07, repeat INR ordered if elevated will order Vitamin K 10mg IV -IR consult for US guided paracentesis Code(s): R60.1 - GENERALIZED EDEMA (4) Ascites Assessment/Plan: -GI and Renal on board -BUN/Cr 13.0/0.8 -Nadolol, Spironolactone, Furosemide -daily weights -recent paracentesis -strict I&O -Abd US shows moderate amount of ascites -INR 1.61 from 09/07, repeat INR ordered if elevated will order Vitamin K 10mg IV -IR consult for US guided paracentesis Code(s): R18.8 - OTHER ASCITES (5) Coagulopathy Assessment/Plan: -monitor INR -INR 1.61 -if elevated will order Vitamin K 10mg IV Code(s): D68.9 - COAGULATION DEFECT, UNSPECIFIED (6) Hypokalemia Assessment/Plan: -K 3.7 -resolved -monitor electrolytes and replete as needed Code(s): E87.6 - HYPOKALEMIA (7) Hyponatremia Assessment/Plan: -Na 137 -resolved -monitor and replete as needed Code(s): E87.1 - HYPO-OSMOLALITY AND HYPONATREMIA (8) Renal failure Assessment/Plan: -Renal on board -BUN/Cr 13.0/0.8 -monitor renal function Code(s): N19 - UNSPECIFIED KIDNEY FAILURE Assessment/Plan see problem list d/c to [facility] when medically cleared
[2019-09-13] MEDS ORDERED: CALAMINE 8% TOPICAL LOTION 177 ML BOTTLE TP PRN (13:35)
[2019-09-13 14:00] LABS: MAGNESIUM 1.5 mg/dL (1.8-2.4)
[2019-09-13] MEDS ORDERED: MAGNESIUM SULF 50% (8.12 MEQ/2 ML-1 GM VIAL) IVPB ONE ×2 (14:59→17:09)
[2019-09-13 16:07] LABS: INR 1.52 (0.83-1.09)
--- NOTE | 2019-09-13 16:52 | PN.GI ---
GI Progress Note Subjective: coverage for Dr Lipscomb Patieint with massive ascitis and 4 plus lower extremity edema,on diuretics, h/ o of duodenal ulcer by EGD - Objective Vital Signs: Vital Signs Temperature 98.7 F 09/13/19 13:43 Pulse Rate 73 09/13/19 13:43 Respiratory Rate 18 09/13/19 13:43 Blood Pressure 95/59 L 09/13/19 13:43 O2 Sat by Pulse Oximetry (%) 100 09/13/19 09:00 Constitutional: No Distress Eyes: Yes: Conjunctiva Clear, Occular Prosthesis Neck: Yes: Supple Cardiovascular: Yes: Regular Rate and Rhythm Respiratory: Yes: CTA Bilaterally Gastrointestinal Inspection: Yes: Ascites (--,massive) ...Palpate: Yes: Soft. No: Firm/Rigid, Guarding, Hepatomegaly, Mass, Pulsatile Mass, Splenomegaly Extremities: Yes: Other Edema: Yes Edema: LLE: 4+, RLE: 4+ Labs: CBC, BMP 09/13/19 06:45 09/13/19 06:45 INR, PTT INR 1.52 (0.83-1.09) H 09/13/19 14:45 Hepatic Panel Total Bilirubin 1.6 mg/dL (0.2-1) H 09/13/19 06:45 AST 70 U/L (15-37) H 09/13/19 06:45 ALT 18 U/L (13-61) 09/13/19 06:45 Alkaline Phosphatase 168 U/L (45-117) H 09/13/19 06:45 Albumin 2.3 g/dl (3.4-5.0) L 09/13/19 06:45 Problem List - Problems (1) Alcoholic cirrhosis of liver with ascites Assessment/Plan: R> will need paracentesis will need to consult IR discussed with Miss Jimenez Code(s): K70.31 - ALCOHOLIC CIRRHOSIS OF LIVER WITH ASCITES
--- NOTE | 2019-09-13 17:07 | PN ---
Progress Note, Physician History of Present Illness: Pt seen and examined at bedside. He is awake and alert. He complains of increased lower ext edema. - Current Medication List Current Medications: Active Medications Calamine (Calamine 8% Topical Lotion -) 1 applic TP Q12H PRN PRN Reason: FOR ITCHING Chlordiazepoxide HCl (Librium -) 25 mg PO Q6H PRN PRN Reason: WITHDRAWAL(CONT SUBST) Last Admin: 09/13/19 09:32 Dose: 25 mg Furosemide (Lasix -) 80 mg PO DAILY [facility] Last Admin: 09/13/19 09:32 Dose: 80 mg Lactulose (Cephulac (Oral Use)) 20 gm PO DAILY [facility] Last Admin: 09/13/19 09:30 Dose: 20 gm Magnesium Oxide (Mag-Ox -) 800 mg PO BID [facility] Last Admin: 09/13/19 09:32 Dose: 800 mg Nadolol (Corgard -) 40 mg PO DAILY [facility] Last Admin: 09/13/19 09:32 Dose: 40 mg Nystatin (Mycostatin Cream -) 1 applic TP BID [facility] Last Admin: 09/13/19 09:33 Dose: 1 applic Pantoprazole Sodium (Protonix -) 40 mg PO DAILY [facility] Last Admin: 09/13/19 09:32 Dose: 40 mg Sodium Chloride (Normal Saline For Inhalation -) 3 ml IH Q6H PRN PRN Reason: dry mouth Spironolactone (Aldactone -) 100 mg PO DAILY [facility] Last Admin: 09/13/19 09:33 Dose: 100 mg - Objective Vital Signs: Vital Signs Temperature 98.7 F 09/13/19 13:43 Pulse Rate 73 09/13/19 13:43 Respiratory Rate 18 09/13/19 13:43 Blood Pressure 95/59 L 09/13/19 13:43 O2 Sat by Pulse Oximetry (%) 100 09/13/19 09:00 Constitutional: Yes: Calm Eyes: Yes: Conjunctiva Clear HENT: Yes: Atraumatic Neck: Yes: Supple Cardiovascular: Yes: S1, S2 Respiratory: Yes: CTA Bilaterally Gastrointestinal: Yes: Soft, Ascites Genitourinary: Yes: WNL Musculoskeletal: Yes: WNL Edema: Yes Edema: LLE: 3+, RLE: 3+ Neurological: Yes: Oriented Psychiatric: Yes: Oriented Labs: CBC, BMP 09/13/19 06:45 09/13/19 06:45 INR, PTT INR 1.52 (0.83-1.09) H 09/13/19 14:45 Problem List - Problems (1) Ascites Code(s): R18.8 - OTHER ASCITES (2) Anasarca Code(s): R60.1 - GENERALIZED EDEMA (3) Coagulopathy Code(s): D68.9 - COAGULATION DEFECT, UNSPECIFIED (4) Hyponatremia Code(s): E87.1 - HYPO-OSMOLALITY AND HYPONATREMIA (5) Renal failure Code(s): N19 - UNSPECIFIED KIDNEY FAILURE (6) Symptomatic anemia Code(s): D64.9 - ANEMIA, UNSPECIFIED Assessment/Plan Current Medications Generic Name Dose Route Start Last Admin Trade Name Freq PRN Reason Stop Dose Admin Calamine 1 applic 09/13/19 13:35 Calamine 8% Topical Lotion - TP Q12H PRN FOR ITCHING Chlordiazepoxide HCl 25 mg 09/11/19 23:19 09/13/19 09:32 Librium - PO 25 mg Q6H PRN Administration WITHDRAWAL(CONT SUBST) Furosemide 80 mg 09/11/19 10:00 09/13/19 09:32 Lasix - PO 80 mg DAILY YUE Administration Lactulose 20 gm 09/09/19 10:00 09/13/19 09:30 Cephulac (Oral Use) PO 20 gm DAILY YUE Administration Magnesium Oxide 800 mg 09/09/19 17:17 09/13/19 09:32 Mag-Ox - PO 800 mg BID YUE Administration Nadolol 40 mg 09/08/19 12:00 09/13/19 09:32 Corgard - PO 40 mg DAILY YUE Administration Nystatin 1 applic 09/08/19 22:00 09/13/19 09:33 Mycostatin Cream - TP 1 applic BID [facility] Administration Pantoprazole Sodium 40 mg 09/10/19 10:00 09/13/19 09:32 Protonix - PO 40 mg DAILY YUE Administration Sodium Chloride 3 ml 09/08/19 06:37 Normal Saline For Inhalation - IH Q6H PRN dry mouth Spironolactone 100 mg 09/10/19 12:00 09/13/19 09:33 Aldactone - PO 100 mg DAILY YUE Administration Impression 1. JUSTINE 2. hyponatremia hypervolemic 3. etoh abuse 4. fluid overload 5. metabolic overload 6. DM 7. htn 8. hld 9. anemia 10. ascites 11. liver cirrhosis Plan - increase lasix dose - cont aldactone - pt for paracentesis, GI input appreciated - replace mag - monitor lytes
[2019-09-13] MEDS ORDERED: POTASSIUM CHLORIDE TABS 20 MEQ TABLET.ER (FP) PO ONE (17:08)
[2019-09-13] MEDS: FUROSEMIDE 40 MG/4 ML INJECTABLE VIAL IVPUSH SCH (17:13)
[2019-09-14] MEDS: FUROSEMIDE 40 MG/4 ML INJECTABLE VIAL IVPUSH SCH ×2 (05:56→13:19)
[2019-09-14 07:38] LABS: ALBUMIN 2.6 g/dl (3.4-5.0); BILIRUBIN,TOTAL 1.9 mg/dL (0.2-1); BLOOD UREA NITROGEN 13.5 mg/dL (7-18); CALCIUM 8.8 mg/dL (8.5-10.1); MAGNESIUM 1.7 mg/dL (1.8-2.4); POTASSIUM 4.5 mmol/L (3.5-5.1); TOT PROT 6.8 g/dl (6.4-8.2)
[2019-09-14 08:08] LABS: HEMATOCRIT 27.9 % (35.4-49); MCH 27.1 pg (25.7-33.7); MCHC 32.4 g/dl (32.0-35.9); MEAN CELL VOLUME 83.7 fl (80-96); MEAN PLT VOLUME 9.1 fl (7.5-11.1); PLATELET COUNT 241 K/MM3 (134-434); RBC 3.33 M/mm3 (4.00-5.60); RDW 22.9 % (11.9-15.9); WHITE BLOOD COUNT 7.7 K/mm3 (4.0-10.0)
[2019-09-14] MEDS ORDERED: MAGNESIUM SULF 50% (8.12 MEQ/2 ML-1 GM VIAL) IVPB ONE (08:23)
[2019-09-14] MEDS ORDERED: PT OWN MED DRAWER 7, Y5N ONE (09:03)
[2019-09-14] MEDS: LACTULOSE 20 GM/30 ML UDC (FOR ORAL USE ONLY) PO SCH (09:25)
[2019-09-14] MEDS: NADOLOL 40 MG TABLET (FP) PO SCH (09:25)
[2019-09-14] MEDS: chlordiazePOXIDE HCL 25 MG CAPSULE PO PRN (09:26)
[2019-09-14] MEDS: SPIRONOLACTONE 25 MG TABLET (FP) PO SCH (09:26)
[2019-09-14] MEDS: NYSTATIN 100,000 UNIT/GM TOPICAL CREAM 15 GM TUBE TP SCH ×2 (09:26→21:12)
[2019-09-14] MEDS: PANTOPRAZOLE 40 MG TABLET (FP) PO SCH (09:26)
[2019-09-14] MEDS: MAGNESIUM OXIDE 400 MG TABLET (FP) PO SCH ×2 (09:26→21:10)
--- NOTE | 2019-09-14 10:53 | PN ---
Progress Note, Physician Chief Complaint: Anasarca Renal Failure History of Present Illness: Previous notes and events reviewed awake and alert NAD complain of itching BC and UC negative denies chest pain or SOB for possible US guided paracentesis - Current Medication List Current Medications: Active Medications Calamine (Calamine 8% Topical Lotion -) 1 applic TP Q12H PRN PRN Reason: FOR ITCHING Last Admin: 09/13/19 17:56 Dose: 1 applic Chlordiazepoxide HCl (Librium -) 25 mg PO Q6H PRN PRN Reason: WITHDRAWAL(CONT SUBST) Last Admin: 09/14/19 09:26 Dose: 25 mg Furosemide (Lasix Injection -) 40 mg IVPUSH BID@0600,1400 [facility] Last Admin: 09/14/19 05:56 Dose: 40 mg Lactulose (Cephulac (Oral Use)) 20 gm PO DAILY [facility] Last Admin: 09/14/19 09:25 Dose: 20 gm Magnesium Oxide (Mag-Ox -) 800 mg PO BID [facility] Last Admin: 09/14/19 09:26 Dose: 800 mg Nadolol (Corgard -) 40 mg PO DAILY [facility] Last Admin: 09/14/19 09:25 Dose: 40 mg Nystatin (Mycostatin Cream -) 1 applic TP BID [facility] Last Admin: 09/14/19 09:26 Dose: 1 applic Pantoprazole Sodium (Protonix -) 40 mg PO DAILY [facility] Last Admin: 09/14/19 09:26 Dose: 40 mg Sodium Chloride (Normal Saline For Inhalation -) 3 ml IH Q6H PRN PRN Reason: dry mouth Spironolactone (Aldactone -) 100 mg PO DAILY [facility] Last Admin: 09/14/19 09:26 Dose: 100 mg - Objective Vital Signs: Vital Signs Temperature 97.5 F L 09/14/19 06:09 Pulse Rate 75 09/14/19 06:09 Respiratory Rate 18 09/14/19 06:09 Blood Pressure 96/58 L 09/14/19 06:09 O2 Sat by Pulse Oximetry (%) 100 09/13/19 21:00 Constitutional: Yes: No Distress, Calm Eyes: Yes: Conjunctiva Clear HENT: Yes: Atraumatic Cardiovascular: Yes: Regular Rate and Rhythm Respiratory: Yes: Regular, CTA Bilaterally Gastrointestinal: Yes: Normal Bowel Sounds, Soft, Ascites Musculoskeletal: Yes: Muscle Weakness Extremities: Yes: WNL Edema: Yes Edema: LLE: 3+, RLE: 3+ Neurological: Yes: Alert, Oriented Psychiatric: Yes: Alert, Oriented Labs: CBC, BMP 09/14/19 06:40 09/14/19 06:40 INR, PTT INR 1.52 (0.83-1.09) H 09/13/19 14:45 Microbiology 09/05/19 12:20 Blood - Peripheral Venous Blood Culture - Final NO GROWTH AFTER 5 DAYS INCUBATION 09/05/19 12:05 Blood - Peripheral Venous Blood Culture - Final NO GROWTH AFTER 5 DAYS INCUBATION 09/05/19 19:00 Peritoneal Fluid Gram Stain - Final 09/05/19 19:00 Peritoneal Fluid Body Fluid Culture - Final NO GROWTH OF AEROBIC ORGANISMS AFTER 48 HOURS INCUBATION 09/05/19 19:00 Peritoneal Fluid Anaerobic Culture - Final NO ANAEROBES WERE ISOLATED 09/05/19 13:25 Urine - Urine Clean Catch Urine Culture - Final NO GROWTH OBTAINED Problem List - Problems (1) Hypomagnesemia Assessment/Plan: -Magnesium 1.7 -Magnesium Oxide BID -monitor electrolyte and replete as needed -Renal on board Code(s): E83.42 - HYPOMAGNESEMIA (2) Alcoholic cirrhosis Assessment/Plan: -GI on board -Hepatitis Panel reviewed -Lactulose -EGD on 08/2019 shows small esophageal varices, duodena bulb ulcer -Abd US shows moderate amount of ascites -INR 1.52 -IR consult for US guided paracentesis Code(s): K70.30 - ALCOHOLIC CIRRHOSIS OF LIVER WITHOUT ASCITES (3) Anasarca Assessment/Plan: -Renal on board -BUN/Cr 13.5/1.0 -Nadolol, Spironolactone, Furosemide -daily weights -Abd US shows moderate amount of ascites -INR 1.52 -IR consult for US guided paracentesis Code(s): R60.1 - GENERALIZED EDEMA (4) Ascites Assessment/Plan: -GI and Renal on board -BUN/Cr 13.5/1.0 -Nadolol, Spironolactone, Furosemide -daily weights -recent paracentesis -strict I&O -Abd US shows moderate amount of ascites -INR 1.52 -IR consult for US guided paracentesis Code(s): R18.8 - OTHER ASCITES (5) Coagulopathy Assessment/Plan: -monitor INR -INR 1.52 Code(s): D68.9 - COAGULATION DEFECT, UNSPECIFIED (6) Hypokalemia Assessment/Plan: -K 4.5 -resolved -monitor electrolytes and replete as needed Code(s): E87.6 - HYPOKALEMIA (7) Hyponatremia Assessment/Plan: -Na 137 -resolved -monitor and replete as needed Code(s): E87.1 - HYPO-OSMOLALITY AND HYPONATREMIA (8) Renal failure Assessment/Plan: -Renal on board -BUN/Cr 13.5/1.0 -monitor renal function Code(s): N19 - UNSPECIFIED KIDNEY FAILURE Assessment/Plan see problem list d/c to [facility] when medically cleared after paracentesis
--- NOTE | 2019-09-14 14:58 | PN ---
Progress Note, Physician History of Present Illness: asked to re-evaluate pt as BP has been running low normal with IV Lasix pt seen and examined today in nad. sitting up in chair. states he is feeling better. states that he has seen that his BP is low but he denies any symptoms. he has been ambulatory with no lightheadedness, dizziness, syncope, or near syncope. - Current Medication List Current Medications: Active Medications Calamine (Calamine 8% Topical Lotion -) 1 applic TP Q12H PRN PRN Reason: FOR ITCHING Last Admin: 09/13/19 17:56 Dose: 1 applic Chlordiazepoxide HCl (Librium -) 25 mg PO Q6H PRN PRN Reason: WITHDRAWAL(CONT SUBST) Last Admin: 09/14/19 09:26 Dose: 25 mg Furosemide (Lasix Injection -) 40 mg IVPUSH BID@0600,1400 [facility] Last Admin: 09/14/19 13:19 Dose: Not Given Lactulose (Cephulac (Oral Use)) 20 gm PO DAILY [facility] Last Admin: 09/14/19 09:25 Dose: 20 gm Magnesium Oxide (Mag-Ox -) 800 mg PO BID [facility] Last Admin: 09/14/19 09:26 Dose: 800 mg Nadolol (Corgard -) 40 mg PO DAILY [facility] Last Admin: 09/14/19 09:25 Dose: 40 mg Nystatin (Mycostatin Cream -) 1 applic TP BID [facility] Last Admin: 09/14/19 09:26 Dose: 1 applic Pantoprazole Sodium (Protonix -) 40 mg PO DAILY [facility] Last Admin: 09/14/19 09:26 Dose: 40 mg Sodium Chloride (Normal Saline For Inhalation -) 3 ml IH Q6H PRN PRN Reason: dry mouth Spironolactone (Aldactone -) 100 mg PO DAILY [facility] Last Admin: 09/14/19 09:26 Dose: 100 mg - Objective Vital Signs: Vital Signs Temperature 97.5 F L 09/14/19 06:09 Pulse Rate 75 09/14/19 06:09 Respiratory Rate 18 09/14/19 09:00 Blood Pressure 96/58 L 09/14/19 06:09 O2 Sat by Pulse Oximetry (%) 100 09/14/19 09:00 Constitutional: Yes: No Distress, Calm Eyes: Yes: Conjunctiva Clear, EOM Intact HENT: Yes: Atraumatic, Normocephalic Neck: Yes: Supple, Trachea Midline Cardiovascular: Yes: Regular Rate and Rhythm, S1, S2. No: Bradycardia, Tachycardia, Pulse Irregular, Bruit, JVD, Gallop, Murmur, Rub, S3, S4, Varicosities Respiratory: Yes: Regular, Diminished. No: Rales, Rhonchi, SOB, Wheezes Gastrointestinal: Yes: Normal Bowel Sounds, Distention Extremities: Yes: WNL Edema: Yes Edema: LLE: 2+, RLE: 2+ Peripheral Pulses WNL: Yes Neurological: Yes: Alert, Oriented Psychiatric: Yes: Alert, Oriented Labs: CBC, BMP 09/14/19 06:40 09/14/19 06:40 INR, PTT INR 1.52 (0.83-1.09) H 09/13/19 14:45 - ....Imaging Chest X-ray: Report Reviewed, Image Reviewed EKG: Report Reviewed, Image Reviewed Other: Report Reviewed, Image Reviewed Assessment/Plan 48 year old man with pmh etoh abuse, htn, hld, dmii admitted with anasarca including ascites, melena, sob. s/p paracentesis 09/05/19 with 9.7 L fluid removed. denies any chest pain, palpitations. ECHO 12/09/18 Normal LV/RV function, mild valvular abnl Hypotension -pt has been on Lasix for anasarca secondary to cirrhosis -BP has been low normal but pt is asymptomatic during these times which is common in this scenario -Diuretic plan is as per GI and nephrology for cirrhosis and resultant ascites/ anasarca, hepatorenal syndrome -may have degree of intravascular depletion leading to mild hypotension. -he is planned for paracentesis today so suggested to hold this afternoons lasix dose -otherwise pts anasarca is not secondary to a cardiac condition and would cont management as per GI/renal reccs. -ECHO 12/09/18 Normal LV/RV function, mild valvular abnl -ECHO 09/06/19 again showed normal LVEF, only mild valvular abnl, no pericardial effusion, mild PAH. No additional cardiac work up is needed at this time. Will see as needed. Please call with any additional questions.
--- NOTE | 2019-09-14 15:12 | PN ---
Progress Note (short form) - Note Progress Note: PULMONARY Denies shortness of breath. Decision on paracentesis pending. Vital Signs Period Temp Pulse Resp BP Sys/Foy Pulse Ox Last 24 Hr 97.5 F-97.9 F 70-77 18-18 88-96/58-59 100-100 Intake & Output 09/11/19 09/12/19 09/13/19 09/14/19 23:59 23:59 23:59 23:59 Intake Total 1360 850 700 700 Balance 1360 850 700 700 Weight 117.072 kg 117.962 kg 116.891 kg 117.118 kg Gen: mildly tachypneic with speaking Heart: RRR Lung: decreased breath sounds at the bases Abd: softly distended, nontender Ext: + edema CBC, BMP 09/14/19 06:40 09/14/19 06:40 Active Medications Calamine (Calamine 8% Topical Lotion -) 1 applic TP Q12H PRN PRN Reason: FOR ITCHING Last Admin: 09/13/19 17:56 Dose: 1 applic Chlordiazepoxide HCl (Librium -) 25 mg PO Q6H PRN PRN Reason: WITHDRAWAL(CONT SUBST) Last Admin: 09/14/19 09:26 Dose: 25 mg Furosemide (Lasix Injection -) 40 mg IVPUSH BID@0600,1400 [facility] Last Admin: 09/14/19 13:19 Dose: Not Given Lactulose (Cephulac (Oral Use)) 20 gm PO DAILY [facility] Last Admin: 09/14/19 09:25 Dose: 20 gm Magnesium Oxide (Mag-Ox -) 800 mg PO BID [facility] Last Admin: 09/14/19 09:26 Dose: 800 mg Nadolol (Corgard -) 40 mg PO DAILY [facility] Last Admin: 09/14/19 09:25 Dose: 40 mg Nystatin (Mycostatin Cream -) 1 applic TP BID [facility] Last Admin: 09/14/19 09:26 Dose: 1 applic Pantoprazole Sodium (Protonix -) 40 mg PO DAILY [facility] Last Admin: 09/14/19 09:26 Dose: 40 mg Sodium Chloride (Normal Saline For Inhalation -) 3 ml IH Q6H PRN PRN Reason: dry mouth Spironolactone (Aldactone -) 100 mg PO DAILY [facility] Last Admin: 09/14/19 09:26 Dose: 100 mg A/P Massive Ascites s/p Large Volume Paracentesis Acute Kidney Injury improving Lactic/Metabolic Acidosis GI Bleed Anemia Alcohol Abuse r/o Liver Cirrhosis Hyponatremia improved HTN DM Hyperlipidemia Morbid Obesity - continue lasix, aldactone - monitor urine output, creatinine - daily weights - protonix - nadolol - completed empiric antibiotics - O2 to keep SpO2 >90% - rehab/PT - DVT prophylaxis
[2019-09-14] MEDS ORDERED: NADOLOL 40 MG TABLET (FP) PO SCH (19:40)
--- NOTE | 2019-09-14 19:40 | PN ---
Progress Note, Physician History of Present Illness: Pt seen and examined at bedside. He is awake and alert. He complains of lower ext edema. - Current Medication List Current Medications: Active Medications Calamine (Calamine 8% Topical Lotion -) 1 applic TP Q12H PRN PRN Reason: FOR ITCHING Last Admin: 09/13/19 17:56 Dose: 1 applic Chlordiazepoxide HCl (Librium -) 25 mg PO Q6H PRN PRN Reason: WITHDRAWAL(CONT SUBST) Last Admin: 09/14/19 09:26 Dose: 25 mg Furosemide (Lasix Injection -) 40 mg IVPUSH BID@0600,1400 [facility] Last Admin: 09/14/19 13:19 Dose: Not Given Lactulose (Cephulac (Oral Use)) 20 gm PO DAILY [facility] Last Admin: 09/14/19 09:25 Dose: 20 gm Magnesium Oxide (Mag-Ox -) 800 mg PO BID [facility] Last Admin: 09/14/19 09:26 Dose: 800 mg Nadolol (Corgard -) 40 mg PO DAILY [facility] Last Admin: 09/14/19 09:25 Dose: 40 mg Nystatin (Mycostatin Cream -) 1 applic TP BID [facility] Last Admin: 09/14/19 09:26 Dose: 1 applic Pantoprazole Sodium (Protonix -) 40 mg PO DAILY [facility] Last Admin: 09/14/19 09:26 Dose: 40 mg Sodium Chloride (Normal Saline For Inhalation -) 3 ml IH Q6H PRN PRN Reason: dry mouth Spironolactone (Aldactone -) 100 mg PO DAILY [facility] Last Admin: 09/14/19 09:26 Dose: 100 mg - Objective Vital Signs: Vital Signs Temperature 97.9 F 09/14/19 15:19 Pulse Rate 69 09/14/19 15:19 Respiratory Rate 20 09/14/19 15:19 Blood Pressure 96/53 L 09/14/19 15:19 O2 Sat by Pulse Oximetry (%) 100 09/14/19 09:00 Constitutional: Yes: Calm Eyes: Yes: Conjunctiva Clear HENT: Yes: Atraumatic Cardiovascular: Yes: S1, S2 Gastrointestinal: Yes: Soft, Abdomen, Obese, Ascites Genitourinary: Yes: WNL Musculoskeletal: Yes: WNL Edema: Yes Edema: LLE: 3+, RLE: 3+ Neurological: Yes: Oriented Psychiatric: Yes: Oriented Labs: CBC, BMP 09/14/19 06:40 09/14/19 06:40 INR, PTT INR 1.52 (0.83-1.09) H 09/13/19 14:45 Problem List - Problems (1) Ascites Code(s): R18.8 - OTHER ASCITES (2) Anasarca Code(s): R60.1 - GENERALIZED EDEMA (3) Coagulopathy Code(s): D68.9 - COAGULATION DEFECT, UNSPECIFIED (4) Hyponatremia Code(s): E87.1 - HYPO-OSMOLALITY AND HYPONATREMIA (5) Renal failure Code(s): N19 - UNSPECIFIED KIDNEY FAILURE (6) Symptomatic anemia Code(s): D64.9 - ANEMIA, UNSPECIFIED Assessment/Plan Current Medications Generic Name Dose Route Start Last Admin Trade Name Freq PRN Reason Stop Dose Admin Calamine 1 applic 09/13/19 13:35 09/13/19 17:56 Calamine 8% Topical Lotion - TP 1 applic Q12H PRN Administration FOR ITCHING Chlordiazepoxide HCl 25 mg 09/11/19 23:19 09/14/19 09:26 Librium - PO 25 mg Q6H PRN Administration WITHDRAWAL(CONT SUBST) Furosemide 40 mg 09/13/19 17:08 09/14/19 13:19 Lasix Injection - IVPUSH Not Given BID@0600,1400 YUE Lactulose 20 gm 09/09/19 10:00 09/14/19 09:25 Cephulac (Oral Use) PO 20 gm DAILY [facility]UE Administration Magnesium Oxide 800 mg 09/09/19 17:17 09/14/19 09:26 Mag-Ox - PO 800 mg BID YUE Administration Nadolol 40 mg 09/08/19 12:00 09/14/19 09:25 Corgard - PO 40 mg DAILY YUE Administration Nystatin 1 applic 09/08/19 22:00 09/14/19 09:26 Mycostatin Cream - TP 1 applic BID YUE Administration Pantoprazole Sodium 40 mg 09/10/19 10:00 09/14/19 09:26 Protonix - PO 40 mg DAILY YUE Administration Sodium Chloride 3 ml 09/08/19 06:37 Normal Saline For Inhalation - IH Q6H PRN dry mouth Spironolactone 100 mg 09/10/19 12:00 09/14/19 09:26 Aldactone - PO 100 mg DAILY YUE Administration Impression 1. JUSTINE 2. hyponatremia hypervolemic 3. etoh abuse 4. fluid overload 5. metabolic overload 6. DM 7. htn 8. hld 9. anemia 10. ascites 11. liver cirrhosis Plan - cont with lasix - pt for paracentesis today - monitor bp - restrict fluid intake - replace mag - monitor nura
--- NOTE | 2019-09-14 19:44 | PN.GI ---
GI Progress Note Subjective: Pt seen/examined at bedside, feeling better, ambulating in room, still with abdominal distension and LE edema, though pt feels overall improved. Tolerating diet. Moving bowels had 2-3 soft-loose bms today. - Objective Vital Signs: Vital Signs Temperature 97.9 F 09/14/19 15:19 Pulse Rate 69 09/14/19 15:19 Respiratory Rate 20 09/14/19 15:19 Blood Pressure 96/53 L 09/14/19 15:19 O2 Sat by Pulse Oximetry (%) 100 09/14/19 09:00 Constitutional: No Distress, Calm Cardiovascular: Yes: WNL, Regular Rate and Rhythm Respiratory: Yes: WNL, Regular, CTA Bilaterally ...Palpate: Yes: Other (Abd softly distended, nontender) Edema: Yes Labs: CBC, BMP 09/14/19 06:40 09/14/19 06:40 INR, PTT INR 1.52 (0.83-1.09) H 09/13/19 14:45 Problem List - Problems (1) Alcoholic cirrhosis Assessment/Plan: with large volume ascites s/p paracentesis. EGD revealing small esophageal varices with clean based duodenal bulb ulcer. Hb stable, renal fctn improved. Repeat US today revealing small ascites not amenable to paracentesis. -Continue to titrate diuretics per nephrology, was increased to lasix 40mg bid and aldactone 100mg daily -Monitor electrolytes, I's and O's and daily weights (appearing stable over the past few days) -PPI daily -Could discontinue nonselective b maddie therapy as risks/benefits need to be weighed in this setting and considering ascites. Would require repeat EGD in 1 year or sooner if new symptoms. -2gNA diet -Continue lactulose titrate to 2-3 loose bms Code(s): K70.30 - ALCOHOLIC CIRRHOSIS OF LIVER WITHOUT ASCITES
[2019-09-15] MEDS: FUROSEMIDE 40 MG/4 ML INJECTABLE VIAL IVPUSH SCH ×2 (06:40→14:15)
[2019-09-15 08:21] LABS: HEMATOCRIT 26.8 % (35.4-49); HEMOGLOBIN 8.9 GM/dL (11.7-16.9); MCH 27.6 pg (25.7-33.7); MCHC 33.2 g/dl (32.0-35.9); MEAN CELL VOLUME 83.1 fl (80-96); PLATELET COUNT 253 K/MM3 (134-434); RBC 3.23 M/mm3 (4.00-5.60); RDW 22.8 % (11.9-15.9); WHITE BLOOD COUNT 7.3 K/mm3 (4.0-10.0)
[2019-09-15 08:53] LABS: ALBUMIN 2.5 g/dl (3.4-5.0); BILIRUBIN,TOTAL 1.6 mg/dL (0.2-1); BLOOD UREA NITROGEN 13.3 mg/dL (7-18); CALCIUM 8.7 mg/dL (8.5-10.1); CREATININE 0.9 mg/dL (0.55-1.3); MAGNESIUM 1.9 mg/dL (1.8-2.4); POTASSIUM 4.5 mmol/L (3.5-5.1); TOT PROT 6.8 g/dl (6.4-8.2)
[2019-09-15 10:09] VITALS: TEMP 98
--- NOTE | 2019-09-15 10:11 | PN ---
Progress Note, Physician - Current Medication List Current Medications: Active Medications Calamine (Calamine 8% Topical Lotion -) 1 applic TP Q12H PRN PRN Reason: FOR ITCHING Last Admin: 09/13/19 17:56 Dose: 1 applic Chlordiazepoxide HCl (Librium -) 25 mg PO Q6H PRN PRN Reason: WITHDRAWAL(CONT SUBST) Last Admin: 09/14/19 09:26 Dose: 25 mg Furosemide (Lasix Injection -) 40 mg IVPUSH BID@0600,1400 [facility] Last Admin: 09/15/19 06:40 Dose: 40 mg Lactulose (Cephulac (Oral Use)) 20 gm PO DAILY [facility] Last Admin: 09/14/19 09:25 Dose: 20 gm Magnesium Oxide (Mag-Ox -) 800 mg PO BID [facility] Last Admin: 09/14/19 21:10 Dose: 800 mg Nadolol (Corgard -) 40 mg PO DAILY [facility] Nystatin (Mycostatin Cream -) 1 applic TP BID [facility] Last Admin: 09/14/19 21:12 Dose: 1 applic Pantoprazole Sodium (Protonix -) 40 mg PO DAILY [facility] Last Admin: 09/14/19 09:26 Dose: 40 mg Sodium Chloride (Normal Saline For Inhalation -) 3 ml IH Q6H PRN PRN Reason: dry mouth Spironolactone (Aldactone -) 100 mg PO DAILY [facility] Last Admin: 09/14/19 09:26 Dose: 100 mg - Objective Vital Signs: Vital Signs Temperature 98.0 F 09/15/19 09:08 Pulse Rate 79 09/15/19 09:08 Respiratory Rate 18 09/15/19 09:08 Blood Pressure 143/76 09/15/19 09:08 O2 Sat by Pulse Oximetry (%) 98 09/15/19 07:54 Labs: CBC, BMP 09/15/19 07:38 09/15/19 07:38 INR, PTT INR 1.52 (0.83-1.09) H 09/13/19 14:45 Problem List - Problems (1) Hypomagnesemia Code(s): E83.42 - HYPOMAGNESEMIA (2) Alcoholic cirrhosis Code(s): K70.30 - ALCOHOLIC CIRRHOSIS OF LIVER WITHOUT ASCITES (3) Anasarca Code(s): R60.1 - GENERALIZED EDEMA (4) Ascites Code(s): R18.8 - OTHER ASCITES (5) Coagulopathy Code(s): D68.9 - COAGULATION DEFECT, UNSPECIFIED (6) Hypokalemia Code(s): E87.6 - HYPOKALEMIA (7) Hyponatremia Code(s): E87.1 - HYPO-OSMOLALITY AND HYPONATREMIA (8) Renal failure Code(s): N19 - UNSPECIFIED KIDNEY FAILURE
--- NOTE | 2019-09-15 10:15 | DS ---
Physical Examination Vital Signs: Vital Signs Temperature 98.0 F 09/15/19 09:08 Pulse Rate 79 09/15/19 09:08 Respiratory Rate 18 09/15/19 09:08 Blood Pressure 143/76 09/15/19 09:08 O2 Sat by Pulse Oximetry (%) 98 09/15/19 07:54 Findings/Remarks: Laboratory Results - last 24 hr 09/14/19 09/14/19 09/14/19 11:51 16:47 21:04 WBC RBC Hgb Hct MCV MCH MCHC RDW Plt Count MPV Sodium Potassium Chloride Carbon Dioxide Anion Gap BUN Creatinine Est GFR (CKD-EPI)AfAm Est GFR (CKD-EPI)NonAf POC Glucometer 167 138 193 Random Glucose Calcium Magnesium Total Bilirubin AST ALT Alkaline Phosphatase Total Protein Albumin 09/15/19 09/15/19 09/15/19 05:27 07:38 07:38 WBC 7.3 RBC 3.23 L Hgb 8.9 L Hct 26.8 L MCV 83.1 MCH 27.6 MCHC 33.2 RDW 22.8 H Plt Count 253 MPV 9.0 Sodium 138 Potassium 4.5 Chloride 104 Carbon Dioxide 28 Anion Gap 6 L BUN 13.3 Creatinine 0.9 Est GFR (CKD-EPI)AfAm 115.83 Est GFR (CKD-EPI)NonAf 99.94 POC Glucometer 118 Random Glucose 125 H Calcium 8.7 Magnesium 1.9 Total Bilirubin 1.6 H AST 87 H ALT 24 Alkaline Phosphatase 193 H Total Protein 6.8 Albumin 2.5 L Home Medication List Medication Instructions Recorded Confirmed Type Aspirin [ASA -] 81 mg PO DAILY 01/07/19 09/05/19 History Dulaglutide [Trulicity] 1 dose SQ WEEKLY 09/05/19 09/05/19 History Active Medications Generic Name Dose Route Start Last Admin Trade Name Freq PRN Reason Stop Dose Admin Calamine 1 applic 09/13/19 13:35 09/13/19 17:56 Calamine 8% Topical Lotion - TP 1 applic Q12H PRN Administration FOR ITCHING Chlordiazepoxide HCl 25 mg 09/11/19 23:19 09/14/19 09:26 Librium - PO 25 mg Q6H PRN Administration WITHDRAWAL(CONT SUBST) Furosemide 40 mg 09/13/19 17:08 09/15/19 06:40 Lasix Injection - IVPUSH 40 mg BID@0600,1400 YUE Administration Lactulose 20 gm 09/09/19 10:00 09/15/19 10:28 Cephulac (Oral Use) PO 20 gm DAILY YUE Administration Magnesium Oxide 800 mg 09/09/19 17:17 09/15/19 10:29 Mag-Ox - PO 800 mg BID YUE Administration Nadolol 40 mg 09/14/19 19:40 09/15/19 10:28 Corgard - PO 40 mg DAILY [facility]UE Administration Nystatin 1 applic 09/08/19 22:00 09/15/19 10:30 Mycostatin Cream - TP 1 applic BID YUE Administration Pantoprazole Sodium 40 mg 09/10/19 10:00 09/15/19 10:28 Protonix - PO 40 mg DAILY YUE Administration Sodium Chloride 3 ml 09/08/19 06:37 Normal Saline For Inhalation - IH Q6H PRN dry mouth Spironolactone 100 mg 09/10/19 12:00 09/15/19 10:28 Aldactone - PO 100 mg DAILY [facility] Administration Constitutional: Yes: No Distress, Calm, Obese Eyes: Yes: Conjunctiva Clear HENT: Yes: Atraumatic Cardiovascular: Yes: Regular Rate and Rhythm Respiratory: Yes: Regular, CTA Bilaterally Gastrointestinal: Yes: Normal Bowel Sounds, Soft, Ascites Musculoskeletal: Yes: Muscle Weakness Extremities: Yes: WNL Edema: Yes Edema: LLE: 3+, RLE: 3+ Neurological: Yes: Alert, Oriented Psychiatric: Yes: Alert, Oriented Labs: CBC, BMP 09/15/19 07:38 09/15/19 07:38 Discharge Summary Problems reviewed: Yes Reason For Visit: RENAL FAILURE Current Active Problems Alcohol dependence with uncomplicated withdrawal (Acute) Alcoholic cirrhosis (Acute) Alcoholic cirrhosis of liver with ascites (Acute) Anasarca (Acute) Ascites (Acute) Coagulopathy (Acute) Hypokalemia (Acute) Hypomagnesemia (Acute) Hyponatremia (Acute) Rash (Acute) Renal failure (Acute) Symptomatic anemia (Acute) Hospital Course: 48yo male with hx of etoh abuse - drinks 1 bottle vodka daily. Also with hx of htn, hld, dm on metformin/losartan, norvasc with abd swelling, LE swelling x 3 months. States he has never stopped drinking or gone through detox. States his made him come to the ER today for eval. States he has been taking his meds as prescribed. Pt states he feels sob when sitting up recently. Denies cp. Pt follows with Dr. Torres. states he has been taking baby asa daily and has been taking motrin for the last week for back pain. States he pulled his back. Pt walked in with a walker. Pt with LE swelling and anasarca. .patient has complaints of melena in the last two weeks as well at home patient has been lying on his side as he having difficulty breathing While in patient he was followed by GI for liver cirrhosis. Underwent US guided paracentesis with IR. Repeat Abdominal US shows small amount of ascites , so no repeat paracentesis was needed. Patient will be discharged to [facility] for in patient alcohol detox. Condition: Stable - Instructions Diet, Activity, Other Instructions: Patient will be discharged to [facility] for In-Patient Alcohol Detox After discharge from [facility] patient will follow up with PMD in 1 week Patient to follow up with GI Dr Trujillo for management of Liver Cirrhosis Patient to follow up [facility] Nephrology Dr Rutledge patient to follow up [facility] Pulmonary Dr Escobar patient will need to have daily weights, 1 liter fluid restriction Draw BMP twice a week to monitor renal function return to ER if develop severe pain, altered mental status, respiratory distress , chest pain Referrals: Gregory Torres MD [Staff Physician] - Teo Trujillo DO [Staff Physician] - Edilberto Rutledge MD [Staff Physician] - Sheldon Escobar MD, MD [Staff Physician] - Disposition: TRANSFER ACUTE CARE/OTHER HOSP - Home Medications Comprehensive Discharge Medication List: Ambulatory Orders Aspirin [ASA -] 81 mg PO DAILY 01/07/19 Dulaglutide [Trulicity] 1 dose SQ WEEKLY 09/05/19
[2019-09-15] MEDS: LACTULOSE 20 GM/30 ML UDC (FOR ORAL USE ONLY) PO SCH (10:28)
[2019-09-15] MEDS: PANTOPRAZOLE 40 MG TABLET (FP) PO SCH (10:28)
[2019-09-15] MEDS: SPIRONOLACTONE 25 MG TABLET (FP) PO SCH (10:28)
[2019-09-15] MEDS: MAGNESIUM OXIDE 400 MG TABLET (FP) PO SCH (10:29)
[2019-09-15] MEDS: NYSTATIN 100,000 UNIT/GM TOPICAL CREAM 15 GM TUBE TP SCH (10:30)
--- NOTE | 2019-09-15 10:41 | PN ---
Progress Note (short form) - Note Progress Note: PULMONARY Denies shortness of breath. Repeat abdominal ultrasound showing small amount of ascites, not enough to tap. Vital Signs Period Temp Pulse Resp BP Sys/Foy Pulse Ox Last 24 Hr 97.6 F-98.2 F 69-79 16-20 96-143/53-76 98-100 Intake & Output 09/12/19 09/13/19 09/14/19 09/15/19 23:59 23:59 23:59 23:59 Intake Total 061 506 5229 Balance 181 361 8201 Weight 117.962 kg 116.891 kg 117.118 kg 117.571 kg Gen: NAD at rest Heart: RRR Lung: decreased breath sounds at the bases Abd: softly distended, nontender Ext: + edema CBC, BMP 09/15/19 07:38 09/15/19 07:38 Active Medications Calamine (Calamine 8% Topical Lotion -) 1 applic TP Q12H PRN PRN Reason: FOR ITCHING Last Admin: 09/13/19 17:56 Dose: 1 applic Chlordiazepoxide HCl (Librium -) 25 mg PO Q6H PRN PRN Reason: WITHDRAWAL(CONT SUBST) Last Admin: 09/14/19 09:26 Dose: 25 mg Furosemide (Lasix Injection -) 40 mg IVPUSH BID@0600,1400 [facility] Last Admin: 09/15/19 06:40 Dose: 40 mg Lactulose (Cephulac (Oral Use)) 20 gm PO DAILY [facility] Last Admin: 09/15/19 10:28 Dose: Not Given Magnesium Oxide (Mag-Ox -) 800 mg PO BID [facility] Last Admin: 09/15/19 10:29 Dose: 800 mg Nadolol (Corgard -) 40 mg PO DAILY [facility] Last Admin: 09/15/19 10:28 Dose: 40 mg Nystatin (Mycostatin Cream -) 1 applic TP BID [facility] Last Admin: 09/15/19 10:30 Dose: 1 applic Pantoprazole Sodium (Protonix -) 40 mg PO DAILY [facility] Last Admin: 09/15/19 10:28 Dose: 40 mg Sodium Chloride (Normal Saline For Inhalation -) 3 ml IH Q6H PRN PRN Reason: dry mouth Spironolactone (Aldactone -) 100 mg PO DAILY [facility] Last Admin: 09/15/19 10:28 Dose: 100 mg A/P Massive Ascites s/p Large Volume Paracentesis Acute Kidney Injury improving Lactic/Metabolic Acidosis GI Bleed Anemia Alcohol Abuse r/o Liver Cirrhosis Hyponatremia improved HTN DM Hyperlipidemia Morbid Obesity - continue lasix, aldactone - monitor urine output, creatinine - daily weights - protonix - completed empiric antibiotics - O2 to keep SpO2 >90% - rehab/PT - DVT prophylaxis
--- NOTE | 2019-09-15 14:03 | PN ---
Progress Note, Physician History of Present Illness: Pt seen and examined at bedside. He is awake and alert. He feels that the edema is slowly getting better. - Current Medication List Current Medications: Active Medications Calamine (Calamine 8% Topical Lotion -) 1 applic TP Q12H PRN PRN Reason: FOR ITCHING Last Admin: 09/13/19 17:56 Dose: 1 applic Chlordiazepoxide HCl (Librium -) 25 mg PO Q6H PRN PRN Reason: WITHDRAWAL(CONT SUBST) Last Admin: 09/14/19 09:26 Dose: 25 mg Furosemide (Lasix Injection -) 40 mg IVPUSH BID@0600,1400 [facility] Last Admin: 09/15/19 06:40 Dose: 40 mg Lactulose (Cephulac (Oral Use)) 20 gm PO DAILY [facility] Last Admin: 09/15/19 10:28 Dose: Not Given Magnesium Oxide (Mag-Ox -) 800 mg PO BID [facility] Last Admin: 09/15/19 10:29 Dose: 800 mg Nadolol (Corgard -) 40 mg PO DAILY [facility] Last Admin: 09/15/19 10:28 Dose: 40 mg Nystatin (Mycostatin Cream -) 1 applic TP BID [facility] Last Admin: 09/15/19 10:30 Dose: 1 applic Pantoprazole Sodium (Protonix -) 40 mg PO DAILY [facility] Last Admin: 09/15/19 10:28 Dose: 40 mg Sodium Chloride (Normal Saline For Inhalation -) 3 ml IH Q6H PRN PRN Reason: dry mouth Spironolactone (Aldactone -) 100 mg PO DAILY [facility] Last Admin: 09/15/19 10:28 Dose: 100 mg - Objective Vital Signs: Vital Signs Temperature 98.0 F 09/15/19 09:08 Pulse Rate 79 09/15/19 09:08 Respiratory Rate 18 09/15/19 09:08 Blood Pressure 143/76 09/15/19 09:08 O2 Sat by Pulse Oximetry (%) 100 09/15/19 09:00 Constitutional: Yes: Calm Eyes: Yes: Conjunctiva Clear HENT: Yes: Atraumatic Neck: Yes: Supple Cardiovascular: Yes: S1, S2 Respiratory: Yes: CTA Bilaterally Gastrointestinal: Yes: Soft Genitourinary: Yes: WNL Musculoskeletal: Yes: WNL Edema: LLE: 2+, RLE: 2+ Neurological: Yes: Oriented Psychiatric: Yes: Oriented Labs: CBC, BMP 09/15/19 07:38 09/15/19 07:38 INR, PTT INR 1.52 (0.83-1.09) H 09/13/19 14:45 Problem List - Problems (1) Ascites Code(s): R18.8 - OTHER ASCITES (2) Anasarca Code(s): R60.1 - GENERALIZED EDEMA (3) Coagulopathy Code(s): D68.9 - COAGULATION DEFECT, UNSPECIFIED (4) Hyponatremia Code(s): E87.1 - HYPO-OSMOLALITY AND HYPONATREMIA (5) Renal failure Code(s): N19 - UNSPECIFIED KIDNEY FAILURE (6) Symptomatic anemia Code(s): D64.9 - ANEMIA, UNSPECIFIED Assessment/Plan Current Medications Generic Name Dose Route Start Last Admin Trade Name Freq PRN Reason Stop Dose Admin Calamine 1 applic 09/13/19 13:35 09/13/19 17:56 Calamine 8% Topical Lotion - TP 1 applic Q12H PRN Administration FOR ITCHING Chlordiazepoxide HCl 25 mg 09/11/19 23:19 09/14/19 09:26 Librium - PO 25 mg Q6H PRN Administration WITHDRAWAL(CONT SUBST) Furosemide 40 mg 09/13/19 17:08 09/15/19 06:40 Lasix Injection - IVPUSH 40 mg BID@0600,1400 YUE Administration Lactulose 20 gm 09/09/19 10:00 09/15/19 10:28 Cephulac (Oral Use) PO Not Given DAILY YUE Magnesium Oxide 800 mg 09/09/19 17:17 09/15/19 10:29 Mag-Ox - PO 800 mg BID YUE Administration Nadolol 40 mg 09/14/19 19:40 09/15/19 10:28 Corgard - PO 40 mg DAILY YUE Administration Nystatin 1 applic 09/08/19 22:00 09/15/19 10:30 Mycostatin Cream - TP 1 applic BID YUE Administration Pantoprazole Sodium 40 mg 09/10/19 10:00 09/15/19 10:28 Protonix - PO 40 mg DAILY YUE Administration Sodium Chloride 3 ml 09/08/19 06:37 Normal Saline For Inhalation - IH Q6H PRN dry mouth Spironolactone 100 mg 09/10/19 12:00 09/15/19 10:28 Aldactone - PO 100 mg DAILY YUE Administration Impression 1. JUSTINE 2. hyponatremia hypervolemic 3. etoh abuse 4. fluid overload 5. metabolic overload 6. DM 7. htn 8. hld 9. anemia 10. ascites 11. liver cirrhosis Plan - cont lasix - cont aldactone - will need to monitor lytes - cont mag supplements - restrict fluid intake - monitor lytes
[2019-09-15 15:04] VITALS: BP 102/64; PULSE 69
== END 2019-09-15 16:32 | disposition other institution (70) | DRG 433 ==
LOC: FER 10:40 → JICU 16:22 → J7W 09-08 13:30
PROVIDERS: ADMIT Family Medicine; ATTEND Student in an Organized Health Care Education/Training Program
PROC: 0W9G3ZX Drainage of Peritoneal Cavity, Percutaneous Approach, Diagnostic (ICD-10-PCS; principal; 2019-09-05)
PROC: 0DB68ZX Excision of Stomach, Via Natural or Artificial Opening Endoscopic, Diagnostic (ICD-10-PCS; 2019-09-07)
DX: K70.31 Alcoholic cirrhosis of liver with ascites (principal); N17.9 Acute kidney failure, unspecified; E87.1 Hypo-osmolality and hyponatremia; D68.9 Coagulation defect, unspecified; E87.2 Acidosis; I85.00 Esophageal varices without bleeding; K76.6 Portal hypertension; F10.230 Alcohol dependence with withdrawal, uncomplicated; I10 Essential (primary) hypertension; E78.5 Hyperlipidemia, unspecified; E11.9 Type 2 diabetes mellitus without complications; K42.9 Umbilical hernia without obstruction or gangrene; D64.9 Anemia, unspecified; E87.70 Fluid overload, unspecified; E66.9 Obesity, unspecified; Z68.38 Body mass index [BMI] 38.0-38.9, adult; R21 Rash and other nonspecific skin eruption; K31.89 Other diseases of stomach and duodenum; K26.9 Duodenal ulcer, unspecified as acute or chronic, without hemorrhage or perforation; K31.9 Disease of stomach and duodenum, unspecified; E87.6 Hypokalemia; E83.42 Hypomagnesemia; I95.9 Hypotension, unspecified
CPT/HCPCS: 36415; 36430; 36511; 36600; 71045-TC-FY; 76700-TC; 76705-TC; 80048; 80053; 81003; 81015; 82042; 82272; 82436; 82550; 82565; 82803; 82962; 83516; 83520; 83540; 83550; 83605; 83735; 83880; 83930; 83935; 84100; 84133; 84155; 84157; 84165; 84300; 84484; 85025; 85027; 85610; 85730; 86038; 86225; 86256; 86704; 86706; 86707; 86708; 86709; 86803; 86850; 86900; 86901; 86922; 87040; 87070; 87075; 87086; 87205; 87340; 87522; 88305-TC; 89051; 93005; 93306-TC; 93970-TC; 94660; 97116-GP; 97162-GP; 99285-25; J7030; P9017; P9038; P9047; P9058

== ENCOUNTER 2020-03-28 14:39 | Emergency (ER) | payer BC, OTHER ==
[2020-03-28 14:55] VITALS: BP 95/60; PULSE 70; TEMP 98.1; BMI 35.4
[2020-03-28 16:17] LABS: INR 1.39 (0.82-1.09); PROTHROMBIN TIME (PATIENT) 15.5 SEC (10.2-13.0)
[2020-03-28 16:18] LABS: ALBUMIN 3.2 g/dl (3.4-5.0); BILIRUBIN,TOTAL 1.5 mg/dl (0.2-1); CALCIUM 9.4 mg/dl (8.5-10); POTASSIUM 4.3 mmol/L (3.5-5.1); TOT PROT 7.2 g/dl (6.4-8.2)
[2020-03-28 16:20] LABS: BASO % 0.4 % (0-2.0); EOS % 8.8 % (0-4.5); LYMPH % 20.1 % (8-40); MCH 25.7 pg (25.7-33.7); MEAN CELL VOLUME 75.7 fl (80-96); MONO % 19.5 % (3.8-10.2); NEUT % 51.2 % (42.8-82.8); PLATELET COUNT 148 K/MM3 (134-434); RBC 2.93 M/mm3 (4.00-5.60); RDW 19.8 % (11.9-15.9); WHITE BLOOD COUNT 4.2 K/mm3 (4.0-10.8)
[2020-03-28 16:24] LABS: ADD RBC MORPHOLOGY YES
[2020-03-28 16:25] LABS: HEMOGLOBIN 7.5 GM/dl (11.7-16.9)
[2020-03-28 16:26] LABS: HEMATOCRIT 22.2 % (35.4-49)
--- NOTE | 2020-03-28 16:41 | PDOC ---
Documentation entered by Sugar Soto SCRIBE, acting as scribe for Sean Falk MD. Sean Falk MD: This documentation has been prepared by the Charles donaldson Maria, SCRIBE, under my direction and personally reviewed by me in its entirety. I confirm that the documentation accurately reflects all work, treatment, procedures, and medical decision making performed by me. History of Present Illness - General Chief Complaint: Revisit, Lab Variance Stated Complaint: LOW HEMOGLOBIN Time Seen by Provider: 03/28/20 14:45 History Source: Patient Exam Limitations: No Limitations - History of Present Illness Initial Comments: 03/28/20 15:25 The patient is a 49 year old male with a significant past medical history of DM with neuropathy and non-healing left plantar foot ulcer, HTN, HLD, prior EtOH use disorder with stated liver disease who presents to the emergency room after being referred by his GI for a low hemoglobin of 7.5. As per patient, he was seen by Dr. Trujillo a week ago and was given a call today regarding his abnormal lab results and was advised to consult his PCP or proceed to the nearest emergency room. Patient is currently asymptomatic. Denies any hematemesis, melena, or bloody stool. Patient states he reports to wound care everyday for his foot ulcer, and reports VS were unremarkable at wound care. He denies any recent fevers, chills, headache or dizziness. He denies any recent nausea, vomit, diarrhea or constipation. He denies any recent chest pain or shortness of breath. He denies any recent dysuria, frequency, urgency or hematuria. Allergies: NKDA Social History: Nonsmoker. History of ETOH use, states he has been sober for over half a year. Denies recreational drug use. Primary Care Physician: Dr. Torres. GI: Dr. Trujillo Past History - Past Medical History Allergies/Adverse Reactions: Allergies Allergy/AdvReac Type Severity Reaction Status Date / Time No Known Allergies Allergy Verified 02/13/20 11:32 Home Medications: Ambulatory Orders Dulaglutide [Trulicity] 1 dose SQ WEEKLY 09/05/19 Nadolol [Corgard -] 40 mg PO DAILY tablet 09/15/19 Pantoprazole Sodium [Protonix -] 40 mg PO DAILY tablet.ec 09/15/19 Glipizide 10 mg PO BID 02/13/20 Amoxicillin/Potassium Clav [Augmentin 875-125 Tablet] 1 each PO BID #14 tablet 02/16/20 Aspirin Coated [Ecotrin -] 81 mg PO DAILY tablet.ec 02/16/20 Blood Sugar Diagnostic [Blood Glucose Test Strip] 1 each [facility] #100 strip 02/16/20 Blood-Glucose Meter [Blood Glucose Meter] 1 each [facility] #1 each 02/16/20 Furosemide [Lasix -] 40 mg PO DAILY #30 tablet 02/16/20 Gauze Bandage [Bandage Roll] 1 each TP DAILY #50 bandage 02/16/20 Gauze Bandage [Gauze Pad] 1 each TP DAILY #50 bandage 02/16/20 Insulin Detemir [Levemir Flextouch] 22 unit SQ AM #1 insuln.pen 02/16/20 Insulin Lispro [Humalog Kwikpen U-200] See Protocol SQ AC #1 insuln.pen 02/16/20 Lancets [Lancets Ultra Thin] 1 each [facility] #100 each 02/16/20 Pen Needle, Diabetic [1St Tier Unifine Pentips Plus] 1 each [facility] #100 dis.needle 02/16/20 Sitagliptin Phosphate [Januvia -] 100 mg PO DAILY@0700 #30 ud 02/16/20 Soft Lens Rinse,Store Solution [Saline Solution] 355 ml [facility] DAILY #1 bottle 02/16/20 Spironolactone [Aldactone -] 25 mg PO DAILY #30 tablet 02/16/20 metFORMIN HCL [Glucophage -] 1,000 mg PO BID@0700,1630 #120 tablet 02/16/20 Anemia: No Asthma: No Cancer: No Cardiac Disorders: No CVA: No COPD: No CHF: No Dementia: No Diabetes: Yes GI Disorders: No Disorders: No HTN: Yes Hypercholesterolemia: Yes Liver Disease: No Psychiatric Problems: Yes (ALCOHOLISM) Seizures: No Thyroid Disease: No - Surgical History Abdominal Surgery: No Appendectomy: No Cardiac Surgery: No Cholecystectomy: No Lung Surgery: No Neurologic Surgery: No Orthopedic Surgery: No - Psycho Social/Smoking Cessation Hx Smoking History: Never smoked Have you smoked in the past 12 months: No Information on smoking cessation initiated: No Hx Alcohol Use: No Drug/Substance Use Hx: No Substance Use Type: Alcohol Hx Substance Use Treatment: No Review of Systems - Review of Systems Able to Perform ROS?: Yes Comments:: 03/28/20 15:25 CONSTITUTIONAL: Absent: fever, chills, diaphoresis, generalized weakness, malaise, loss of appetite HEENT: Absent: rhinorrhea, nasal congestion, throat pain, throat swelling, difficulty swallowing, mouth swelling, ear pain, eye pain, visual Changes CARDIOVASCULAR: Absent: chest pain, syncope, palpitations, irregular heart rate, lightheadedness, peripheral edema RESPIRATORY: Absent: cough, shortness of breath, dyspnea with exertion, orthopnea, wheezing, stridor, hemoptysis GASTROINTESTINAL: Absent: abdominal pain, abdominal distension, nausea, vomiting, diarrhea, constipation, melena, hematochezia GENITOURINARY: Absent: dysuria, frequency, urgency, hesitancy, hematuria, flank pain, genital pain MUSCULOSKELETAL: Absent: myalgia, arthralgia, joint swelling SKIN: Absent: rash, itching, pallor HEMATOLOGIC/IMMUNOLOGIC: +7.5 hemoglobin Absent: easy bleeding, easy bruising, lymphadenopathy, frequent infections ENDOCRINE: Absent: unexplained weight gain, unexplained weight loss, heat intolerance, cold intolerance NEUROLOGIC: Absent: headache, focal weakness or paresthesias, dizziness, unsteady gait, seizure, mental status changes, bladder or bowel incontinence PSYCHIATRIC: Absent: anxiety, depression, suicidal or homicidal ideation, hallucinations. *Physical Exam - Vital Signs Last Vital Signs Temp Pulse Resp BP Pulse Ox 98.1 F 70 20 95/60 100 03/28/20 14:41 03/28/20 14:41 03/28/20 14:41 03/28/20 14:41 03/28/20 14:41 - Physical Exam 03/28/20 15:26 GENERAL: Well developed, well nourished. Awake and alert. No acute distress. HEENT: Normocephalic, atraumatic. PERRLA, EOMI. No conjunctival pallor. Sclera are non- icteric. Moist mucous membranes. Oropharynx is clear. NECK: Supple. Full ROM. No JVD. Carotid pulses 2+ and symmetric, without bruits. No thyromegaly. No lymphadenopathy. CARDIOVASCULAR: Regular rate and rhythm. No murmurs, rubs, or gallops. Distal pulses are 2+ and symmetric. PULMONARY: No evidence of respiratory distress. Lungs clear to auscultation bilaterally. No wheezing, rales or rhonchi. ABDOMINAL:+ distended with fluid waves. Soft. Non-tender. No rebound or guarding. No organomegaly or mass. Normoactive bowel sounds. MUSCULOSKELETAL Normal range of motion at all joints. No bony deformities or tenderness. No CVA tenderness. EXTREMITIES: No cyanosis. No clubbing. No edema. No posterior calf tenderness. SKIN: + healing left plantar foot ulcer Warm and dry. Normal capillary refill. No rashes. No jaundice. NEUROLOGICAL: Alert, awake, appropriate. Cranial nerves 2-12 intact. No deficits to light touch and temperature in face, upper extremities and lower extremities. No motor deficits in the in face, upper extremities and lower extremities. Normoreflexic in the upper and lower extremities. Normal speech. Toes are down-going bilaterally. Gait is normal without ataxia. PSYCHIATRIC: Cooperative. Good eye contact. Appropriate mood and affect. ED Treatment Course - LABORATORY CBC & Chemistry Diagram: 03/28/20 15:35 03/28/20 15:35 Medical Decision Making - Medical Decision Making 03/28/20 15:09 49-year-old male with alcoholic cirrhosis found to have hemoglobin of 7.5. 1- week ago. Sent in by his doctor for recheck. Asymptomatic. No lightheadedness, dizziness, chest pain, shortness of breath visual or focal ne urologic symptoms unsteadiness of gait. Had paracentesis in the past, abdominal girth appears to be stable according to the patient. No hematemesis, melena, or bloody stool reported. 03/28/20 16:40 H&H stable since last week at 7.5 and 22. Stools guaiac negative. No other potential source of bleeding. He is asymptomatic, which indicates the anemia is probably chronic. He will follow-up with primary physician, with whom he has an appointment tomorrow, and referred to dryerman/woman for further evaluation. Instructed to return to ER if symptoms develop. Fully ambulatory and asymptomatic at discharge to follow-up as directed Discharge - Discharge Information Problems reviewed: Yes Clinical Impression/Diagnosis: Anemia Qualifiers: Anemia type: unspecified type Qualified Code(s): D64.9 - Anemia, unspecified Condition: Stable Disposition: HOME - Admission No - Follow up/Referral Referrals: Renzo Vail MD [Staff Physician] - - Patient Discharge Instructions Patient Printed Discharge Instructions: DI for Anemia of Chronic Disease Additional Instructions: Your hemoglobin and hematocrit have not changed in 1 week. It is unlikely that you are actively bleeding. In addition, your stool shows no blood. If you should develop signs of low blood count, including lightheadedness or dizziness, chest pain, shortness of breath, bloody stool, or black tarry stool, you should return immediately to the ER. Otherwise follow-up with your doctor as scheduled in a timely manner. - Post Discharge Activity
[2020-03-28] MEDS ORDERED: LOCK ITEM NR ONE (18:07)
[2020-03-28 18:11] LABS: ANISOCYTOSIS 2+; PLATELET ESTIMATE ADEQUATE
== END 2020-03-28 17:07 | disposition home or self-care (01) ==
LOC: FER 14:39
DX: D64.9 Anemia, unspecified (principal); E11.621 Type 2 diabetes mellitus with foot ulcer; L97.522 Non-pressure chronic ulcer of other part of left foot with fat layer exposed; Z79.4 Long term (current) use of insulin
CPT/HCPCS: 36415; 80053; 82272; 82962; 85025; 85610; 99284-25; G0277

== ENCOUNTER 2022-03-27 13:18 | Inpatient (IN) | payer BC, OTHER ==
[2022-03-27] MEDS ORDERED: VANCOMYCIN 1,000 MG in DEXTROSE 5%-WATER - 250 ML IVPB ONE (14:24)
[2022-03-27] MEDS ORDERED: PIPERACILLIN/TAZOB 4.5 GM 4.5 GM in DEXTROSE 5%-WATER 100 ML IVPB ONE (14:26)
[2022-03-27 14:43] LABS: ALBUMIN 3.7 g/dl (3.4-5.0); BILIRUBIN,TOTAL 2.2 mg/dl (0.2-1); CALCIUM 9.3 mg/dl (8.5-10); TOT PROT 7.1 g/dl (6.4-8.2)
[2022-03-27] MEDS ORDERED: VANCOMYCIN 1,000 MG VIAL (RESTRICTED TO ID ONLY) ONE (14:44)
[2022-03-27] MEDS ORDERED: PIPERACILLIN/TAZOBACTAM 4.5 GM VIAL IVPB ONE (14:44)
[2022-03-27 14:48] LABS: HEMATOCRIT 41.9 % (35.4-49); HEMOGLOBIN 14.8 G/dL (11.7-16.9); MCH 32.8 pg (25.7-33.7); MCHC 35.4 g/dl (32.0-35.9); MEAN CELL VOLUME 92.5 fl (80-96); MEAN PLT VOLUME 8.8 fl (7.5-11.1); PLATELET COUNT 145.2 10^3/uL (134-434); RBC 4.53 10^6/uL (4.00-5.60); RDW 14.6 % (11.9-15.9); WHITE BLOOD COUNT 5.1 10^3/uL (4.0-10.8)
[2022-03-27 14:59] LABS: ERYTHROCYTE SEDIMENTATION RATE 34 mm/hr (0-20)
[2022-03-27 19:34] VITALS: BMI 83.6
[2022-03-27] MEDS ORDERED: POLYETHYLENE GLYCOL (HEALTHYLAX) 3350 17 GM PACKET PO PRN (21:26)
[2022-03-27] MEDS ORDERED: ACETAMINOPHEN 325 MG TABLET (FP) PO PRN (21:26)
[2022-03-27] MEDS: PIPERACILLIN/TAZOB 3.375 GM 3.375 GM in DEXTROSE 5%-WATER - 50 ML IVPB SCH (22:08)
[2022-03-27] MEDS: INSULIN SLIDING SCALE (NOVOLOG) 1 VIAL SQ SCH (22:57)
[2022-03-28] MEDS ORDERED: PIPERACILLIN/TAZOBACTAM 3.375 GM VIAL IVPB ONE ×3 (00:02→08:33)
[2022-03-28] MEDS ORDERED: DEXTROSE 5%-WATER - 50 ML IVPB ONE ×3 (00:02→08:34)
[2022-03-28] MEDS ORDERED: VANCOMYCIN PREMIX 1.75 GM 1,750 MG/350 ML PIGGYBACK IVPB SCH (03:00)
[2022-03-28] MEDS: PIPERACILLIN/TAZOB 3.375 GM 3.375 GM in DEXTROSE 5%-WATER - 50 ML IVPB SCH ×2 (04:03→08:38)
[2022-03-28] MEDS: INSULIN SLIDING SCALE (NOVOLOG) 1 VIAL SQ SCH ×4 (06:32→21:37)
[2022-03-28 08:04] LABS: INR 1.27 (0.83-1.09); PROTHROMBIN TIME (PATIENT) 14.6 SEC (9.7-13.0)
[2022-03-28 08:07] LABS: CALCIUM 8.9 mg/dl (8.5-10); CREATININE 0.9 mg/dl (0.55-1.3); MAGNESIUM 1.7 mg/dL (1.8-2.4)
[2022-03-28 08:11] LABS: HEMATOCRIT 38.1 % (35.4-49); HEMOGLOBIN 13.6 G/dL (11.7-16.9); MCH 33.1 pg (25.7-33.7); MCHC 35.7 g/dl (32.0-35.9); MEAN CELL VOLUME 92.8 fl (80-96); MEAN PLT VOLUME 8.7 fl (7.5-11.1); PLATELET COUNT 115.5 10^3/uL (134-434); RBC 4.11 10^6/uL (4.00-5.60); RDW 14.3 % (11.9-15.9); WHITE BLOOD COUNT 4.6 10^3/uL (4.0-10.8)
[2022-03-28] MEDS ORDERED: CEFTRIAXONE 2 GM-D5W BAG 2 GM/50 ML BAG IVPB SCH (11:30)
[2022-03-28] MEDS ORDERED: CEFTRIAXONE 2 GM in SODIUM CHLORIDE 100 ML IVPB ONE (12:00)
[2022-03-28] MEDS ORDERED: SODIUM CHLORIDE 100 ML IVPB ONE (12:11)
[2022-03-28] MEDS: SODIUM CHLORIDE 1,000 ML IV SCH (12:13)
[2022-03-28] MEDS ORDERED: MAGNESIUM SULF 50% (8.12 MEQ/2 ML-1 GM VIAL) IVPB ONE (12:21)
[2022-03-28] MEDS ORDERED: MAGNESIUM SULFATE IN WATER 2 GM/50 ML IVPB IVPB ONE (12:30)
[2022-03-28] MEDS ORDERED: GENTAMICIN SO4 80 MG/2 ML VIAL ONE (12:50)
[2022-03-28] MEDS ORDERED: ONDANSETRON 4 MG/2 ML VIAL IVPUSH PRN (12:57)
[2022-03-28] MEDS ORDERED: LIDOCAINE HCL 2% (20ML MULTI-DOSE VIAL) ONE (13:04)
[2022-03-28] MEDS ORDERED: BUPIVACAINE HCL 50 ML ONE (13:04)
[2022-03-28] MEDS ORDERED: MIDAZOLAM HCL 2 MG/2 ML SINGLE DOSE VIAL ONE (13:05)
[2022-03-28] MEDS ORDERED: PROPOFOL 20 ML ONE (13:06)
[2022-03-28] MEDS: MUPIROCIN 2% TOPICAL OINTMENT 22 GM TUBE TP SCH ×2 (16:11→21:38)
[2022-03-28] MEDS: LACTATED RINGERS SOLUTION 1,000 ML IV SCH (17:10)
[2022-03-28] MEDS: RIFAXIMIN 550 MG TABLET PO SCH ×2 (21:38→21:54)
[2022-03-28] MEDS: INSULIN (LEVEMIR) 100 UNITS/ML UNITS SQ SCH (21:38)
[2022-03-28] MEDS ORDERED: POTASSIUM CHLORIDE TABS 20 MEQ TABLET.ER (FP) PO ONE (22:00)
[2022-03-28] MEDS ORDERED: PIPERACILLIN/TAZOB 3.375 GM 3.375 GM in DEXTROSE 5%-WATER - 50 ML IVPB SCH (22:00)
[2022-03-29] MEDS ORDERED: VANCOMYCIN PREMIX 1.75 GM 1,750 MG/350 ML PIGGYBACK IVPB SCH (03:00)
[2022-03-29] MEDS: INSULIN SLIDING SCALE (NOVOLOG) 1 VIAL SQ SCH ×4 (06:14→21:39)
[2022-03-29] MEDS ORDERED: SODIUM CHLORIDE 100 ML IVPB ONE (09:53)
[2022-03-29] MEDS: RIFAXIMIN 550 MG TABLET PO SCH ×2 (10:00→21:36)
[2022-03-29] MEDS ORDERED: FUROSEMIDE 40 MG TABLET (FP) PO SCH (10:00)
[2022-03-29] MEDS ORDERED: NADOLOL 20 MG TABLET (FP) PO SCH (10:00)
[2022-03-29] MEDS ORDERED: CEFTRIAXONE 1 GM in DEXTROSE 5%-WATER - 50 ML IVPB SCH (10:00)
[2022-03-29] MEDS ORDERED: CEFTRIAXONE 2 GM-D5W BAG 2 GM/50 ML BAG IVPB SCH (10:00)
[2022-03-29] MEDS: SPIRONOLACTONE 25 MG TABLET PO SCH (10:00)
[2022-03-29] MEDS: FERROUS SO4 325 MG TABLET (FP) PO SCH (10:01)
[2022-03-29] MEDS: PANTOPRAZOLE 40 MG TABLET PO SCH (10:02)
[2022-03-29] MEDS: CEFTRIAXONE 2 GM in SODIUM CHLORIDE 100 ML IVPB SCH (10:02)
[2022-03-29] MEDS: MUPIROCIN 2% TOPICAL OINTMENT 22 GM TUBE TP SCH ×2 (10:02→21:35)
[2022-03-29] MEDS: SODIUM CHLORIDE 1,000 ML IV SCH (10:38)
[2022-03-29] MEDS: NADOLOL 20 MG TABLET (FP) PO SCH (13:50)
[2022-03-29] MEDS: LACTATED RINGERS SOLUTION 1,000 ML IV SCH (13:52)
[2022-03-29] MEDS: FUROSEMIDE 40 MG TABLET (FP) PO SCH (16:25)
[2022-03-29] MEDS: INSULIN (LEVEMIR) 100 UNITS/ML UNITS SQ SCH (21:36)
[2022-03-29] MEDS: ATORVASTATIN CA 20 MG TABLET (FP) PO SCH (21:36)
[2022-03-30] MEDS: INSULIN SLIDING SCALE (NOVOLOG) 1 VIAL SQ SCH ×4 (06:39→21:46)
[2022-03-30 08:15] LABS: HEMATOCRIT 39.2 % (35.4-49); MCH 33.5 pg (25.7-33.7); MCHC 35.8 g/dl (32.0-35.9); MEAN CELL VOLUME 93.8 fl (80-96); MEAN PLT VOLUME 9.5 fl (7.5-11.1); PLATELET COUNT 112.4 10^3/uL (134-434); RBC 4.18 10^6/uL (4.00-5.60); WHITE BLOOD COUNT 4.5 10^3/uL (4.0-10.8)
[2022-03-30 08:55] LABS: ALBUMIN 3.2 g/dl (3.4-5.0); BILIRUBIN,TOTAL 1.8 mg/dl (0.2-1); CREATININE 0.8 mg/dl (0.55-1.3); MAGNESIUM 1.6 mg/dL (1.8-2.4); TOT PROT 5.7 g/dl (6.4-8.2)
[2022-03-30 09:31] LABS: ERYTHROCYTE SEDIMENTATION RATE 32 mm/hr (0-20)
[2022-03-30] MEDS ORDERED: SODIUM CHLORIDE 100 ML IVPB ONE (09:43)
[2022-03-30] MEDS: FERROUS SO4 325 MG TABLET (FP) PO SCH (10:29)
[2022-03-30] MEDS: SPIRONOLACTONE 25 MG TABLET PO SCH (10:29)
[2022-03-30] MEDS: PANTOPRAZOLE 40 MG TABLET PO SCH (10:29)
[2022-03-30] MEDS: RIFAXIMIN 550 MG TABLET PO SCH ×2 (10:29→21:44)
[2022-03-30] MEDS: FUROSEMIDE 40 MG TABLET (FP) PO SCH (10:32)
[2022-03-30] MEDS: MUPIROCIN 2% TOPICAL OINTMENT 22 GM TUBE TP SCH ×2 (10:33→21:43)
[2022-03-30] MEDS: NADOLOL 20 MG TABLET (FP) PO SCH (10:33)
[2022-03-30] MEDS: CEFTRIAXONE 2 GM in SODIUM CHLORIDE 100 ML IVPB SCH (10:34)
[2022-03-30] MEDS: SODIUM CHLORIDE 1,000 ML IV SCH (11:29)
[2022-03-30] MEDS: LACTATED RINGERS SOLUTION 1,000 ML IV SCH (14:47)
[2022-03-30] MEDS: HEPARIN NA (PORCINE) 5,000 UNITS/ML 1ML VIAL SQ SCH (21:43)
[2022-03-30] MEDS: INSULIN (LEVEMIR) 100 UNITS/ML UNITS SQ SCH (21:43)
[2022-03-30] MEDS: ATORVASTATIN CA 20 MG TABLET (FP) PO SCH (21:44)
[2022-03-31 06:13] VITALS: BP 100/58; PULSE 68; TEMP 98
[2022-03-31] MEDS: INSULIN SLIDING SCALE (NOVOLOG) 1 VIAL SQ SCH (06:52)
[2022-03-31] MEDS: NADOLOL 20 MG TABLET (FP) PO SCH (09:26)
[2022-03-31] MEDS: HEPARIN NA (PORCINE) 5,000 UNITS/ML 1ML VIAL SQ SCH (09:27)
[2022-03-31] MEDS: RIFAXIMIN 550 MG TABLET PO SCH (09:27)
[2022-03-31] MEDS: FUROSEMIDE 40 MG TABLET (FP) PO SCH (09:27)
[2022-03-31] MEDS: FERROUS SO4 325 MG TABLET (FP) PO SCH (09:28)
[2022-03-31] MEDS: PANTOPRAZOLE 40 MG TABLET PO SCH (09:28)
[2022-03-31] MEDS: CEFTRIAXONE 2 GM in SODIUM CHLORIDE 100 ML IVPB SCH (09:28)
[2022-03-31] MEDS: SPIRONOLACTONE 25 MG TABLET PO SCH (09:31)
[2022-03-31] MEDS: MUPIROCIN 2% TOPICAL OINTMENT 22 GM TUBE TP SCH (09:32)
== END 2022-03-31 10:46 | disposition home or self-care (01) | DRG 623 ==
LOC: FER 13:18 → FM/S 18:24
PROVIDERS: ADMIT Internal Medicine; ATTEND Nurse Practitioner Acute Care
PROC: 0JBR0ZZ Excision of Left Foot Subcutaneous Tissue and Fascia, Open Approach (ICD-10-PCS; 2022-03-28)
PROC: 0Y9N0ZX Drainage of Left Foot, Open Approach, Diagnostic (ICD-10-PCS; 2022-03-28)
PROC: 2W1TX6Z Compression of Left Foot using Pressure Dressing (ICD-10-PCS; 2022-03-28)
PROC: 0JBR0ZZ Excision of Left Foot Subcutaneous Tissue and Fascia, Open Approach (ICD-10-PCS; principal; 2022-03-28 13:23)
DX: E11.621 Type 2 diabetes mellitus with foot ulcer (principal); L03.116 Cellulitis of left lower limb; E11.52 Type 2 diabetes mellitus with diabetic peripheral angiopathy with gangrene; L97.528 Non-pressure chronic ulcer of other part of left foot with other specified severity; I96 Gangrene, not elsewhere classified; L02.612 Cutaneous abscess of left foot; E11.40 Type 2 diabetes mellitus with diabetic neuropathy, unspecified; K74.60 Unspecified cirrhosis of liver; I10 Essential (primary) hypertension; E78.5 Hyperlipidemia, unspecified; E87.6 Hypokalemia; E83.42 Hypomagnesemia; B95.7 Other staphylococcus as the cause of diseases classified elsewhere; L08.9 Local infection of the skin and subcutaneous tissue, unspecified; F10.10 Alcohol abuse, uncomplicated; R22.42 Localized swelling, mass and lump, left lower limb
CPT/HCPCS: 36415; 71045-TC-FY; 73630-TC-LT; 80048; 80053; 82308; 82962; 83036; 83735; 85025; 85027; 85610; 85651; 85730; 86140; 87040; 87070; 87076; 87205; 88304-TC; 93005; 94760; 97116-GP; 97162-GP; 99285-25; C9803-CS; J1644; J3370; U0003; U0005